=== PATIENT | female | born 1945 | race Caucasian/White ===

== ENCOUNTER → 2016-12-08 | Outpatient (CLI) | payer MEDICARE ==
[2016-12-08 16:00] LABS: Basophils # (A) 0.1 k/uL (0-0.2); Basophils % (A) 1 %; CH 27.8; CHCM 32.4; Eosinophils # (A) 0.2 k/uL (0-0.7); Eosinophils % (A) 2 %; HCT 46.5 % (34.0-46.0); HDW 3.08; HGB 14.4 gm/dL (11.4-16.0); Luc # (Auto) 0.07; Luc % (Auto) 1; Lymphocytes # (A) 1.4 k/uL (1.0-4.8); Lymphocytes % (A) 15 %; MCH 26.7 pg (25.0-35.0); MCHC 31.1 g/dL (31.0-37.0); MCV 85.9 fL (80.0-100.0); Mean Platelet Volume 7.6; Monocytes # (A) 0.4 k/uL (0-1.0); Monocytes % (A) 4 %; Neutrophils # (A) 7.1 k/uL (1.3-7.7); Neutrophils % (A) 77 %; RBC 5.41 m/uL (3.80-5.40); RDW 14.9 % (11.5-15.5); WBC 9.1 k/uL (3.8-10.6); WBC (Perox) 9.29
[2016-12-08 16:10] LABS: Anion Gap 12 mmol/L; Blood Urea Nitrogen 16 mg/dL (7-17); Calcium 9.6 mg/dL (8.4-10.2); Carbon Dioxide 32 mmol/L (22-30); Chloride 100 mmol/L (98-107); Glucose 102 mg/dL (74-99); Iron 61 ug/dL (37-170); Magnesium 1.5 mg/dL (1.6-2.3); Non-African American GFR(MDRD) 55 (>60 ml/min/1.73 sqM); Phosphorous 3.8 mg/dL (2.5-4.5); Potassium 4.6 mmol/L (3.5-5.1); Sodium 144 mmol/L (137-145); Uric Acid 8.3 mg/dL (3.7-7.4)
[2016-12-08 16:13] LABS: Appearance,Urine Clear (Clear); Bilirubin,Urine Negative (Negative); Glucose,Urine (UA) Negative (Negative); Ketones,Urine Negative (Negative); Leukocyte Esterase,Urine Negative (Negative); Nitrite,Urine Negative (Negative); PH, Urine 6.5 (5.0-8.0); Protein,Urine Negative (Negative); Specific Gravity,Urine 1.008 (1.001-1.035); UA Billing (MACRO vs. MICRO) CHEM; Urobilinogen,Urine <2.0 mg/dL (<2.0)
[2016-12-08 16:18] LABS: % Iron Saturation 18.8 % (20-50); Total Iron Binding Capacity 324 ug/dL (265-497)
== END | disposition home or self-care (01) ==
LOC: LABWHC1 15:37
PROVIDERS: ATTEND Nurse Practitioner Family
DX: N18.3 Chronic kidney disease, stage 3 (moderate) (principal); N25.81 Secondary hyperparathyroidism of renal origin; E79.0 Hyperuricemia without signs of inflammatory arthritis and tophaceous disease
CPT/HCPCS: 36415; 80048; 81003; 82306; 82728; 83540; 83550; 83735; 83970; 84100; 84550; 85025

== ENCOUNTER → 2017-06-05 | Outpatient (CLI) | payer MEDICARE ==
[2017-06-05 11:25] LABS: Basophils # (A) 0.1 k/uL (0-0.2); Basophils % (A) 1 %; CH 28.3; Eosinophils # (A) 0.2 k/uL (0-0.7); Eosinophils % (A) 2 %; HCT 44.7 % (34.0-46.0); HDW 3.09; HGB 14.8 gm/dL (11.4-16.0); Luc # (Auto) 0.11; Luc % (Auto) 1; Lymphocytes # (A) 1.1 k/uL (1.0-4.8); Lymphocytes % (A) 11 %; MCH 28.5 pg (25.0-35.0); MCHC 33.1 g/dL (31.0-37.0); Mean Platelet Volume 7.2; Monocytes # (A) 0.5 k/uL (0-1.0); Monocytes % (A) 5 %; Neutrophils # (A) 8.2 k/uL (1.3-7.7); Neutrophils % (A) 81 %; RDW 15.1 % (11.5-15.5); WBC 10.1 k/uL (3.8-10.6); WBC (Perox) 9.46
[2017-06-05 11:41] LABS: Appearance,Urine Turbid (Clear); Bacteria,Urine Many /hpf; Bilirubin,Urine Negative (Negative); Calcium 9.6 mg/dL (8.4-10.2); Glucose,Urine (UA) Negative (Negative); Ketones,Urine Negative (Negative); Leukocyte Esterase,Urine Large (Negative); Magnesium 1.6 mg/dL (1.6-2.3); Mucus,Urine Occasional /hpf; Nitrite,Urine Positive (Negative); Particle Count 10281; Phosphorous 3.5 mg/dL (2.5-4.5); Potassium 4.3 mmol/L (3.5-5.1); Protein,Urine 1+ (Negative); RBC,Urine 14 /hpf (0-5); Specific Gravity,Urine 1.013 (1.001-1.035); Squamous Epithelial Cell,Urine 7 /hpf (0-4); UA Billing (MACRO vs. MICRO) MICRO; WBC,Urine >182 /hpf (0-5)
[2017-06-05 19:44] LABS: Alternaria alternata IgE <0.10 kU/L; Aspergillus fumagatus IgE <0.10 kU/L; Cat Epith & Dander IgE <0.10 kU/L; Cladosporian herbarum IgE <0.10 kU/L; Dermato. farinae IgE <0.10 kU/L; Maple (Box Elder) IgE <0.10 kU/L; Orchard Grs(Cocksfoot) IgE <0.10 kU/L; Ragweed,Common IgE <0.10 kU/L
[2017-06-05 19:45] LABS: Clam IgE <0.10 kU/L; Egg White IgE <0.10 kU/L; Peanut IgE <0.10 kU/L; Scallop IgE <0.10 kU/L; Soybean IgE <0.10 kU/L
== END | disposition home or self-care (01) ==
LOC: LABWHC1 10:43
PROVIDERS: ATTEND Nurse Practitioner Family
DX: N18.3 Chronic kidney disease, stage 3 (moderate) (principal); N39.0 Urinary tract infection, site not specified; E55.9 Vitamin D deficiency, unspecified; M10.9 Gout, unspecified; J45.909 Unspecified asthma, uncomplicated; N25.81 Secondary hyperparathyroidism of renal origin
CPT/HCPCS: 36415; 80048; 81001; 82306; 82728; 82785; 83540; 83550; 83735; 83970; 84100; 84550; 85025; 86003

== ENCOUNTER → 2017-06-25 | Outpatient (CLI) | payer MEDICARE | LOC: LABWHC1 17:20 | PROVIDERS: ATTEND Internal Medicine Nephrology | DX: N18.3 Chronic kidney disease, stage 3 (moderate) (principal) | CPT/HCPCS: 36415; 82306; 83970 ==

== ENCOUNTER → 2017-09-08 | Outpatient (CLI) | payer MEDICARE ==
--- NOTE | 2017-09-08 14:15 | XR ---
Abdomen HISTORY: Cyst on kidney, chronic kidney disease, blood in urine Frontal view of the abdomen is present at 2 images and correlated prior exam 05/09/2015, CT abdomen pe lvis 11/12/2015, ultrasound kidneys 09/23/2016 The double-J ureteral stent has been removed. There are phleboliths present within the pelvis. Scolio sis is present centered at the upper lumbar spine. Degenerative disc changes are present within the v isualized spine. Surgical clips are present in the right upper quadrant, patient is post cholecystect bria. Questionable left paraspinal calcification present, difficult to exclude proximal ureteral calcu lindsay. Lung bases not included on the exam. IMPRESSION: Indeterminate calcification as described. Difficult to exclude nephrolithiasis.
== END | disposition home or self-care (01) ==
LOC: RADXRMAIN 13:10
PROVIDERS: ATTEND Urology
DX: N28.1 Cyst of kidney, acquired (principal)
CPT/HCPCS: 74000

== ENCOUNTER → 2017-09-08 | Outpatient (CLI) | payer MEDICARE ==
[2017-09-08 13:33] LABS: Appearance,Urine Clear (Clear); Bacteria,Urine Occasional /hpf; Bilirubin,Urine Negative (Negative); Glucose,Urine (UA) Negative (Negative); Ketones,Urine Negative (Negative); Leukocyte Esterase,Urine Large (Negative); Nitrite,Urine Negative (Negative); Particle Count 1206; Protein,Urine Negative (Negative); Specific Gravity,Urine 1.004 (1.001-1.035); UA Billing (MACRO vs. MICRO) MICRO; Urobilinogen,Urine <2.0 mg/dL (<2.0); WBC,Urine 42 /hpf (0-5)
[2017-09-08 13:33] LABS: Anion Gap 11 mmol/L; Blood Urea Nitrogen 14 mg/dL (7-17); Calcium 9.7 mg/dL (8.4-10.2); Carbon Dioxide 29 mmol/L (22-30); Chloride 98 mmol/L (98-107); Glucose 102 mg/dL (74-99); Non-African American GFR(MDRD) >60 (>60 ml/min/1.73 sqM); Potassium 4.9 mmol/L (3.5-5.1); Sodium 138 mmol/L (137-145)
== END | disposition home or self-care (01) ==
LOC: RADUSWWP 12:41
PROVIDERS: ATTEND Internal Medicine Nephrology
DX: N18.3 Chronic kidney disease, stage 3 (moderate) (principal)
CPT/HCPCS: 80048; 81001

== ENCOUNTER → 2017-12-15 | Outpatient (CLI) | payer MEDICARE ==
[2017-12-15 14:26] LABS: Basophils # (A) 0.1 k/uL (0-0.2); Basophils % (A) 1 %; Eosinophils # (A) 0.2 k/uL (0-0.7); Eosinophils % (A) 2 %; HCT 46.1 % (34.0-46.0); HGB 14.4 gm/dL (11.4-16.0); Lymphocytes # (A) 1.4 k/uL (1.0-4.8); Lymphocytes % (A) 15 %; MCH 28.2 pg (25.0-35.0); MCHC 31.2 g/dL (31.0-37.0); MCV 90.4 fL (80.0-100.0); Mean Platelet Volume 7.5; Monocytes # (A) 0.4 k/uL (0-1.0); Monocytes % (A) 5 %; Neutrophils # (A) 7.2 k/uL (1.3-7.7); Neutrophils % (A) 77 %; Platelet Count 219 k/uL (150-450); RDW 15.7 % (11.5-15.5); WBC 9.4 k/uL (3.8-10.6)
[2017-12-15 14:31] LABS: Appearance,Urine Clear (Clear); Bacteria,Urine Moderate /hpf; Bilirubin,Urine Negative (Negative); Blood,Urine Negative (Negative); Color,Urine Yellow; Glucose,Urine (UA) Negative (Negative); Ketones,Urine Negative (Negative); Leukocyte Esterase,Urine Large (Negative); Mucus,Urine Rare /hpf; Nitrite,Urine Positive (Negative); Protein,Urine Negative (Negative); Specific Gravity,Urine 1.006 (1.001-1.035); Squamous Epithelial Cell,Urine 2 /hpf (0-4); Urobilinogen,Urine <2.0 mg/dL (<2.0); WBC,Urine 55 /hpf (0-5)
[2017-12-15 14:38] LABS: Anion Gap 11 mmol/L; Blood Urea Nitrogen 14 mg/dL (7-17); Calcium 9.4 mg/dL (8.4-10.2); Carbon Dioxide 35 mmol/L (22-30); Chloride 97 mmol/L (98-107); Glucose 94 mg/dL (74-99); Magnesium 1.6 mg/dL (1.6-2.3); Phosphorus 3.6 mg/dL (2.5-4.5); Potassium 4.8 mmol/L (3.5-5.1); Sodium 143 mmol/L (137-145)
[2017-12-15 19:13] LABS: Iron Saturation 18.32 (12.00-45.00)
[2017-12-15 19:15] LABS: Parathyroid Hormone Intact 92.2 pg/mL (14.0-72.0)
[2017-12-15 19:21] LABS: Vitamin D 25 Hydroxy 48.4 ng/mL (30.0-100.0)
== END | disposition home or self-care (01) ==
LOC: LABWHC1 13:49
PROVIDERS: ATTEND Internal Medicine Nephrology
DX: E55.9 Vitamin D deficiency, unspecified (principal); D63.1 Anemia in chronic kidney disease; N18.3 Chronic kidney disease, stage 3 (moderate); N39.0 Urinary tract infection, site not specified; M10.9 Gout, unspecified; E21.3 Hyperparathyroidism, unspecified
CPT/HCPCS: 36415; 80048; 81001; 82306; 82728; 83540; 83550; 83735; 83970; 84100; 84550; 85025

== ENCOUNTER 2018-04-08 10:41 | Inpatient (IN) | payer MEDICARE ==
[2018-04-08] MEDS ORDERED: IBUPROFEN 600 MG TAB PO STA (10:51)
[2018-04-08] MEDS ORDERED: cefTRIAXone IN SWFI 1,000 MG/10 ML SYRINGE IVP STA ×2 (10:51→12:32)
[2018-04-08] MEDS ORDERED: ACETAMINOPHEN TAB 500 MG TAB PO STA (10:51)
[2018-04-08] MEDS: SODIUM CHLORIDE 0.9% 500 ML IV SCH ×4 (11:30→13:31)
[2018-04-08] MEDS: SODIUM CHLORIDE 0.9% 1,000 ML IV SCH ×2 (11:33→19:31)
[2018-04-08 11:37] LABS: Basophils % (A) 0 %; Eosinophils # (A) 0.3 k/uL (0-0.7); Eosinophils % (A) 2 %; HCT 44.3 % (34.0-46.0); Lymphocytes # (A) 0.9 k/uL (1.0-4.8); Lymphocytes % (A) 5 %; MCH 28.2 pg (25.0-35.0); MCHC 33.9 g/dL (31.0-37.0); MCV 83.3 fL (80.0-100.0); Mean Platelet Volume 7.1; Monocytes # (A) 0.7 k/uL (0-1.0); Monocytes % (A) 4 %; Neutrophils # (A) 15.2 k/uL (1.3-7.7); Neutrophils % (A) 88 %; Platelet Count 211 k/uL (150-450); RBC 5.32 m/uL (3.80-5.40); RDW 14.1 % (11.5-15.5); WBC 17.2 k/uL (3.8-10.6)
[2018-04-08 11:46] LABS: Albumin 4.3 g/dL (3.5-5.0); Appearance,Urine Cloudy (Clear); Bacteria,Urine Many /hpf; Bilirubin,Urine Negative (Negative); Blood,Urine Negative (Negative); Calcium 9.9 mg/dL (8.4-10.2); Calcium Oxalate Crystals,Urine Rare /hpf; Color,Urine Yellow; Glucose,Urine (UA) Negative (Negative); Hyaline Casts,Urine 1 /lpf (0-2); Ketones,Urine Negative (Negative); Leukocyte Esterase,Urine Large (Negative); Mucus,Urine Rare /hpf; Nitrite,Urine Negative (Negative); Potassium 4.6 mmol/L (3.5-5.1); Protein,Urine Trace (Negative); RBC,Urine 1 /hpf (0-5); Specific Gravity,Urine 1.014 (1.001-1.035); Squamous Epithelial Cell,Urine 2 /hpf (0-4); Total Bilirubin 3.3 mg/dL (0.2-1.3); Total Protein 7.2 g/dL (6.3-8.2); WBC,Urine >182 /hpf (0-5)
--- NOTE | 2018-04-08 11:50 | ED ---
Fever HPI - General Chief Complaint: Fever Stated Complaint: POSS KIDNEY STONE,INFECTION, FEVER Time Seen by Provider: 04/08/18 10:51 Source: patient, RN notes reviewed, old records reviewed Mode of arrival: wheelchair Limitations: physical limitation - History of Present Illness Initial Comments: 73-year-old female presents wrist final fever and dysuria for 2 days. She states that she's had a history of kidney stones. Complains of some back pain. She states it was initially on the left side but now on the right. Patient denies any recent fever, chills, shortness of breath, chest pain, nausea vomiting, numbness or tingling, dysuria or hematuria, constipation or diarrhea, headaches or visual changes, or any other current symptoms. She has history of A. fib on Coumadin. Last level was 2.4. - Related Data Home Medications Medication Instructions Recorded Confirmed Labetalol [Trandate] 100 mg PO BID-W/MEALS 04/09/15 04/08/18 Thyroid,Pork [Sylva Thyroid] 30 mg PO DAILY 04/09/15 04/08/18 Iodine Supplement 1 tab PO DAILY 11/12/15 04/08/18 Ascorbic Acid [Vitamin C] 500 mg PO DAILY 04/08/18 04/08/18 Cholecalciferol [Vitamin D3] 5,000 unit PO HS 04/08/18 04/08/18 Grape Seed Oil 1 cap PO BID 04/08/18 04/08/18 Magnessium 666mg 666 mg PO DAILY 04/08/18 04/08/18 Turmeric Root Extract [Turmeric] 500 mg PO HS 04/08/18 04/08/18 Ubiquinol 100 mg PO DAILY 04/08/18 04/08/18 Warfarin Sodium 10 mg PO HS 04/08/18 04/08/18 Warfarin [Coumadin] 2.5 mg PO TUTHSA 04/08/18 04/08/18 Allergies Allergy/AdvReac Type Severity Reaction Status Date / Time lisinopril Allergy Severe Abdominal Verified 04/08/18 11:52 Pain promethazine Allergy Severe Anaphylaxis Verified 04/08/18 11:52 Sulfa (Sulfonamide Allergy Severe SEVERE Verified 04/08/18 11:52 Antibiotics) ASTHMA ATTACK azithromycin Allergy Diarrhea Verified 04/08/18 11:52 levofloxacin Allergy Unknown Verified 04/08/18 11:52 amlodipine besylate AdvReac Severe Severe Verified 04/08/18 11:52 [From Norvasc] drop in blood pressure adhesive AdvReac Unknown BLISTERS Verified 04/08/18 11:52 diazepam [From Valium] AdvReac "Stabbing Verified 04/08/18 11:52 pain in brain" meperidine HCl [From Demerol] AdvReac Nausea & Verified 04/08/18 11:52 Vomiting Review of Systems ROS Statement: Those systems with pertinent positive or pertinent negative responses have been documented in the HPI. ROS Other: All systems not noted in ROS Statement are negative. Past Medical History Past Medical History: Atrial Fibrillation, Asthma, Cancer, COPD, Diabetes Mellitus, Hyperlipidemia, Hypertension, Osteoarthritis (OA), Pneumonia, Renal Disease, Thyroid Disorder Additional Past Medical History / Comment(s): 11/12/[address] [facility] ER with abdominal pain. Pt thought she had food poisoning from a hot dog she ate last nite around 8pm. She woke at 0300 with nausea/diffuse abdominal discomfort. She had a fever this AM and is slightly constiated. She is being admitted with clinical impression of sepsis, UTI, abdominal pain. 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 History of Any Multi-Drug Resistant Organisms: None Reported Past Surgical History: Breast Surgery, Section, Cholecystectomy, Hysterectomy, Tonsillectomy Additional Past Surgical History / Comment(s): L BREAST BX, URETER STENT 03/2015 , L ureteroscopy calculus extraction, colonoscopy, skin cancer removal from forehead, C/Section x 1. Past Anesthesia/Blood Transfusion Reactions: No Reported Reaction Additional Past Anesthesia/Blood Transfusion Reaction / Comment(s): WOKE UP VOMITING DURING Past Psychological History: No Psychological Hx Reported Smoking Status: Never smoker Past Alcohol Use History: None Reported Past Drug Use History: None Reported - Past Family History Father Family Medical History: Diabetes Mellitus, Deep Vein Thrombosis (DVT), Hypertension Additional Family Medical History / Comment(s): blind/neuropathy secondary to DM. Father is living and is 94 yrs old. Mother Family Medical History: Dementia Additional Family Medical History / Comment(s): Mother at age 88yrs. General Exam - General Exam Comments Initial Comments: 73-year-old female. No distress. Patient is morbidly obese. Limitations: physical limitation General appearance: alert, in no apparent distress Head exam: Present: atraumatic Eye exam: Present: normal appearance, PERRL, EOMI. Absent: scleral icterus, conjunctival injection, periorbital swelling ENT exam: Present: normal exam, mucous membranes moist Neck exam: Present: normal inspection. Absent: tenderness, meningismus, lymphadenopathy Respiratory exam: Present: normal lung sounds bilaterally. Absent: respiratory distress, wheezes, rales, rhonchi, stridor Cardiovascular Exam: Present: regular rate, normal rhythm, normal heart sounds. Absent: systolic murmur, diastolic murmur, rubs, gallop, clicks GI/Abdominal exam: Present: soft, normal bowel sounds. Absent: distended, tenderness, guarding, rebound, rigid Extremities exam: Present: normal inspection, full ROM, normal capillary refill. Absent: tenderness, pedal edema, joint swelling, calf tenderness Back exam: Present: normal inspection Neurological exam: Present: alert, oriented X3, CN II-XII intact Psychiatric exam: Present: normal affect, normal mood Course Vital Signs 04/08/18 04/08/18 10:44 13:00 Temperature 102.0 F H 98.9 F Pulse Rate 90 87 Respiratory 20 22 Rate Blood Pressure 145/82 158/96 O2 Sat by Pulse 95 95 Oximetry Medical Decision Making - Medical Decision Making 73-year-old female with dysuria for the past 2 days. Has a fever 102. Patient meets sepsis criteria with urinary tract infection over 182 white blood cells in her urine. Urine culture obtained. Blood culture obtained. Patient's lactic acid was reviewed and normal. Given [address] abdomen and pelvis without contrast completed check for stones. Started on 2 g of Rocephin. Patient does have a 0.6 cm proximal ureteral stone with air noted in the ureter. Consider possible pyelonephritis. Consult to urology. Dr. Chamberlain Discussed with Dr. Alberto. Patient will be admitted at this time. - Lab Data Result diagrams: 04/08/18 11:21 04/08/18 11:21 Lab Results 05/09/1604/08/18 04/08/18 Range/Units 11:21 11:21 11:21 WBC 17.2 H (3.8-10.6) k/uL RBC 5.32 (3.80-5.40) m/uL Hgb 15.0 (11.4-16.0) gm/dL Hct 44.3 (34.0-46.0) % MCV 83.3 (80.0-100.0) fL MCH 28.2 (25.0-35.0) pg MCHC 33.9 (31.0-37.0) g/dL RDW 14.1 (11.5-15.5) % Plt Count 211 (150-450) k/uL Neutrophils % 88 % Lymphocytes % 5 % Monocytes % 4 % Eosinophils % 2 % Basophils % 0 % Neutrophils # 15.2 H (1.3-7.7) k/uL Lymphocytes # 0.9 L (1.0-4.8) k/uL Monocytes # 0.7 (0-1.0) k/uL Eosinophils # 0.3 (0-0.7) k/uL Basophils # 0.0 (0-0.2) k/uL PT 19.7 H (9.0-12.0) sec INR 2.2 H (<1.2) APTT 31.3 H (22.0-30.0) sec Sodium 141 (137-145) mmol/L Potassium 4.6 (3.5-5.1) mmol/L Chloride 98 (98-107) mmol/L Carbon Dioxide 27 (22-30) mmol/L Anion Gap 16 mmol/L BUN 21 H (7-17) mg/dL Creatinine 1.50 H (0.52-1.04) mg/dL Est GFR (CKD-EPI)AfAm 40 (>60 ml/min/1.73 sqM) Est GFR (CKD-EPI)NonAf 35 (>60 ml/min/1.73 sqM) Glucose 122 H (74-99) mg/dL Plasma Lactic Acid Marcial (0.7-2.0) mmol/L Calcium 9.9 (8.4-10.2) mg/dL Total Bilirubin 3.3 H (0.2-1.3) mg/dL AST 27 (14-36) U/L ALT 25 (9-52) U/L Alkaline Phosphatase 87 (38-126) U/L Total Protein 7.2 (6.3-8.2) g/dL Albumin 4.3 (3.5-5.0) g/dL Urine Color Urine Appearance (Clear) Urine pH (5.0-8.0) Ur Specific Thurmond (1.001-1.035) Urine Protein (Negative) Urine Glucose (UA) (Negative) Urine Ketones (Negative) Urine Blood (Negative) Urine Nitrite (Negative) Urine Bilirubin (Negative) Urine Urobilinogen (<2.0) mg/dL Ur Leukocyte Esterase (Negative) Urine RBC (0-5) /hpf Urine WBC (0-5) /hpf Urine WBC Clumps (None) /hpf Ur Squamous Epith Cells (0-4) /hpf Calcium Oxalate Crystal (None) /hpf Urine Bacteria (None) /hpf Hyaline Casts (0-2) /lpf Urine Mucus (None) /hpf 04/08/18 04/08/18 Range/Units 11:21 11:24 WBC (3.8-10.6) k/uL RBC (3.80-5.40) m/uL Hgb (11.4-16.0) gm/dL Hct (34.0-46.0) % MCV (80.0-100.0) fL MCH (25.0-35.0) pg MCHC (31.0-37.0) g/dL RDW (11.5-15.5) % Plt Count (150-450) k/uL Neutrophils % % Lymphocytes % % Monocytes % % Eosinophils % % Basophils % % Neutrophils # (1.3-7.7) k/uL Lymphocytes # (1.0-4.8) k/uL Monocytes # (0-1.0) k/uL Eosinophils # (0-0.7) k/uL Basophils # (0-0.2) k/uL PT (9.0-12.0) sec INR (<1.2) APTT (22.0-30.0) sec Sodium (137-145) mmol/L Potassium (3.5-5.1) mmol/L Chloride (98-107) mmol/L Carbon Dioxide (22-30) mmol/L Anion Gap mmol/L BUN (7-17) mg/dL Creatinine (0.52-1.04) mg/dL Est GFR (CKD-EPI)AfAm (>60 ml/min/1.73 sqM) Est GFR (CKD-EPI)NonAf (>60 ml/min/1.73 sqM) Glucose (74-99) mg/dL Plasma Lactic Acid Marcial 1.0 (0.7-2.0) mmol/L Calcium (8.4-10.2) mg/dL Total Bilirubin (0.2-1.3) mg/dL AST (14-36) U/L ALT (9-52) U/L Alkaline Phosphatase (38-126) U/L Total Protein (6.3-8.2) g/dL Albumin (3.5-5.0) g/dL Urine Color Yellow Urine Appearance Cloudy H (Clear) Urine pH 7.0 (5.0-8.0) Ur Specific Thurmond 1.014 (1.001-1.035) Urine Protein Trace H (Negative) Urine Glucose (UA) Negative (Negative) Urine Ketones Negative (Negative) Urine Blood Negative (Negative) Urine Nitrite Negative (Negative) Urine Bilirubin Negative (Negative) Urine Urobilinogen 4.0 (<2.0) mg/dL Ur Leukocyte Esterase Large H (Negative) Urine RBC 1 (0-5) /hpf Urine WBC >182 H (0-5) /hpf Urine WBC Clumps Few H (None) /hpf Ur Squamous Epith Cells 2 (0-4) /hpf Calcium Oxalate Crystal Rare H (None) /hpf Urine Bacteria Many H (None) /hpf Hyaline Casts 1 (0-2) /lpf Urine Mucus Rare H (None) /hpf 04/08/18 12:38 EKG performed at 1205 shows A. fib with rate and axis. Patient has history of atrial fibrillation. Ventricular rate 91 bpm. QRS duration 90. QT QTc is 360/ 442. - Radiology Data Radiology results: report reviewed CT shows a 0.6 obstructing proximal right ureteral stone with mild hydronephrosis. Noticed small amount of air within the ureter. Pyelonephritis cannot be excluded. Disposition Clinical Impression: Pyelonephritis, Sepsis, Calculus of proximal right ureter Disposition: ADMITTED IP TO THIS HOSP Condition: Stable Is patient prescribed a controlled substance at d/c from ED?: No If prescribed controlled substance>3 days was MAPS reviewed?: No When asked, does pt state using other controlled substances?: No Referrals: Too Espinosa DO [Primary Care Provider] - 1-2 days Time of Disposition: 12:33
[2018-04-08 11:57] LABS: INR 2.2 (<1.2); Partial Thromboplastin Time 31.3 sec (22.0-30.0); Prothrombin Time 19.7 sec (9.0-12.0)
[2018-04-08] MEDS ORDERED: ONDANSETRON 4 MG/2 ML VIAL IVP PRN (12:35)
[2018-04-08] MEDS ORDERED: NALOXONE 0.4 MG/ML 1 ML VIAL IV PRN (12:35)
[2018-04-08] MEDS ORDERED: ACETAMINOPHEN TAB 325 MG TAB PO PRN (12:35)
[2018-04-08] MEDS ORDERED: KETOROLAC 30 MG/ML 1 ML VIAL IVP PRN (12:35)
[2018-04-08] MEDS ORDERED: IBUPROFEN 400 MG TAB PO PRN (12:35)
--- NOTE | 2018-04-08 13:08 | CT ---
EXAMINATION TYPE: CT abdomen pelvis wo con DATE OF EXAM: 04/08/2018 COMPARISON: NONE INDICATION: Rt flank pain, UTI DLP: 2639.9 mGycm, Automated exposure control for dose reduction was used. CONTRAST: None Study performed without Oral Contrast TECHNIQUE: Axial images were obtained from above the diaphragm to the pubic rami in the axial plane a t 5 mm thick sections. Reconstructed images are reviewed on the computer in the coronal plane. FINDINGS: Limited CT sections are obtained the lung bases. The lung bases are clear. Coronary artery calcific ation is present. CT ABDOMEN: Liver: Normal Spleen: Normal Pancreas: Normal Adrenal glands: The adrenal glands are normal. Gallbladder: Surgically absent Kidneys: No masses are evident. No hydronephrosis is present. No cysts are present. There is a non obstructing 1.0 cm left renal pelvis stone. There is malrotation of the right kidney. Punctate nonobs tructing 0.4 cm stone is at the superior pole. There is an obstructing proximal right ureteral stone measuring 0.6 cm causing mild hydronephrosis. There may be some gravel or milk of calcium within the dependent portion of the renal pelvis on the right. Aorta: Vascular calcification is within the aorta. Inferior vena cava: Normal. CT PELVIS: Periumbilical fat-containing hernia is present. Loops of bowel within the abdomen and pelvis are normal. There are loops of bowel which are incom pletely distended or lack oral contrast limiting their evaluation. Diverticulosis of the sigmoid colo n without acute diverticulitis is present. Appendix: Not identified Urinary bladder: Normal. Genitourinary structures: Uterus and ovaries are not identified. Osseous structures: No suspicious lytic or sclerotic lesions. IMPRESSIONS: 1. 0.6 cm obstructing proximal right ureteral stone with mild right hydronephrosis. Note is made of small amount of air within the ureter. Pyelonephritis should be considered. 2. Nonobstructing bilateral renal stones.
--- NOTE | 2018-04-08 15:52 | P.HPIM ---
History of Present Illness H&P Date: 04/08/18 Chief Complaint: Flank pain and fever Is a pleasant 73-year-old lady patient of Dr. Jesús Castro, Dr Chi. She has underlying history of COPD chronic hypoxemia on O2 nasal cannula 22/06 , lymphedema atrial fibrillation diabetes mellitus type 2, hypertension impaired balance on a walker scooter for Commit ambulation admitted to emergency room secondary to fever abdominal pain and flank pain. Patient has been ill for approximately one week, this has started when the patient started using supplement for weight loss over the counter and thereafter started having abdominal pain and flank pain. Patient had nausea no vomiting no fever no melena and , flank pain that started in the after first for about a week and 1 day prior to admission he had flank pain on the right leg patient denies any hematuria no recent medication changes from recent doctors. Patient was calm when seen, denies any nausea no vomiting, abdominal pain and flank pain is improved. 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 Patient was admitted with IV antibiotics for pyelonephritis, consult with Dr. Chi urology secondary to obstructing right ureteral stone with mild hydronephrosis Review of Systems Constitutional: Reports as per HPI, Reports chills, Reports fever, Denies anorexia, Denies chronic headaches, Denies chronic pain, Denies daytime sleepiness, Denies fatigue, Denies lethargy, Denies malaise, Denies night sweats , Denies poor appetite, Denies sweats, Denies weakness, Denies weight gain, Denies weight loss Ears, nose, mouth and throat: Reports as per HPI, Denies ant. neck pain, Denies bleeding gums, Denies dental pain, Denies dysphagia, Denies epistaxis, Denies headache, Denies hoarseness, Denies mouth pain, Denies nasal congestion, Denies nasal discharge, Denies neck fullness/pressure, Denies neck lump, Denies nose pain, Denies odynophagia, Denies post-nasal drip, Denies sinus pain, Denies sinus pressure, Denies swelling in mouth, Denies swelling in throat, Denies sore throat, Denies vertigo, Denies voice changes Cardiovascular: Reports as per HPI, Reports dyspnea on exertion, Reports edema, Denies chest pain, Denies claudication, Denies decreased exercise tolerance, Denies high blood pressure, Denies irregular heart beat, Denies leg edema, Denies lightheadedness, Denies orthopnea, Denies palpitations, Denies paroxysmal nocturnal dyspnea, Denies phlebitis, Denies rapid heart beat, Denies shortness of breath, Denies syncope Respiratory: Reports as per HPI, Reports dyspnea, Reports home oxygen, Denies congestion, Denies cough, Denies cough with sputum, Denies excessive sputum, Denies hemoptysis, Denies pain, Denies pain on inspiration, Denies pleurisy, Denies respiratory infections, Denies sleep apnea, Denies snoring, Denies wheezing Gastrointestinal: Reports as per HPI, Reports nausea, Denies abdominal pain, Denies belching, Denies bloating, Denies BRBPR, Denies change in bowel habits, Denies coffee ground emesis, Denies constipation, Denies diarrhea, Denies dyspepsia, Denies early satiety, Denies excessive gas, Denies heartburn, Denies hematemesis, Denies hematochezia, Denies indigestion, Denies jaundice, Denies lactose intolerance, Denies loss of appetite, Denies melena, Denies vomiting Genitourinary: Reports as per HPI, Denies abnormal vaginal bleeding, Denies decreased libido, Denies difficulty conceiving, Denies difficulty voiding, Denies dysmenorrhea, Denies dyspareunia, Denies dysuria, Denies flank pain, Denies genital sores, Denies hematuria, Denies hot flashes, Denies incomplete emptying, Denies kidney stones, Denies menorrhagia, Denies mixed incontinence, Denies nocturia, Denies pelvic pain, Denies post void dribbling, Denies , Denies prolapse symptoms, Denies stress incontinence, Denies urge incontinence , Denies urgency, Denies urinary frequency, Denies vaginal discharge, Denies vaginal dryness, Denies vaginal itching, Denies vaginal odor Menstruation: Reports as per HPI, Reports postmenopausal Musculoskeletal: Reports as per HPI, Denies arm numbness/tingling, Denies atrophy, Denies fractures, Denies frequent falls, Denies gait dysfunction, Denies hot joints, Denies leg numbness/tingling, Denies limitation of motion, Denies loss of height, Denies low back pain, Denies morning stiffness, Denies muscle cramps, Denies muscle weakness, Denies myalgias, Denies neck pain, Denies neck stiffness, Denies prior amputations, Denies redness of joints, Denies shooting arm pain, Denies shooting leg pain Integumentary: Reports as per HPI, Denies acne, Denies boils, Denies brittle nails, Denies change in hair/nails, Denies color changes, Denies darkening of skin, Denies depigmentation, Denies dryness, Denies foot/leg ulcers, Denies growths, Denies hirsutism, Denies lesions, Denies onychomycosis, Denies pruritus , Denies rash, Denies sores, Denies striae, Denies unusual bruising, Denies wounds Neurological: Reports as per HPI, Denies aphasia, Denies ataxia, Denies balance difficulties, Denies burning pain, Denies change in mentation, Denies change in smell/taste, Denies change in speech, Denies confusion, Denies convulsions, Denies double vision, Denies gait dysfunction, Denies head injury, Denies headaches, Denies hearing difficulties, Denies lack of coordination, Denies loss of vision, Denies memory loss, Denies migraines, Denies motor disturbance, Denies numbness, Denies paralysis, Denies paresthesias, Denies seizures, Denies sensory deficit, Denies spasticity, Denies syncope, Denies tic, Denies tingling , Denies transient paralysis, Denies tremors, Denies vertigo, Denies weakness, Denies visual changes Psychiatric: Reports as per HPI, Denies anhedonia, Denies anxiety, Denies anxiety attacks, Denies change in appetite, Denies change in libido, Denies change in sleep habits, Denies confusion, Denies depression, Denies difficulty concentrating, Denies disorientation, Denies hallucinations, Denies hopelessness , Denies hypersomnia, Denies insomnia, Denies irritability, Denies memory loss, Denies mood swings, Denies paranoia, Denies sadness/tearfulness, Denies sleep disturbances, Denies suicidal ideation Endocrine: Reports as per HPI, Denies cold intolerance, Denies deepening of the voice, Denies excessive sweating, Denies excessive thirst, Denies fatigue, Denies flushing, Denies heat intolerance, Denies high blood sugars, Denies increase in ring/shoe/hat size, Denies low blood sugars, Denies nocturia, Denies palpitations, Denies polydipsia, Denies polyphagia, Denies polyuria, Denies proptosis, Denies recent glucocorticoid use, Denies thyroid mass, Denies weight change Hematologic/Lymphatic: Reports as per HPI Allergic/Immunologic: Reports as per HPI, Denies allergic rhinitis, Denies anaphylaxis, Denies angioedema, Denies gluten intolerance, Denies persistent infections, Denies seasonal allergies, Denies urticaria, Denies wheezing Past Medical History Past Medical History: Atrial Fibrillation, Asthma, Cancer, COPD, Diabetes Mellitus, Hyperlipidemia, Hypertension, Osteoarthritis (OA), Pneumonia, Renal Disease, Thyroid Disorder Additional Past Medical History / Comment(s): Other HX: LYMPHEDEMA IN LEGS, VARICOSE VEINS, BRONCHITIS, WEARS O2 AT 2 L AT HS., ALTERNATING CONSTIPATION & DIARRHEA, KIDNEY STONES, L renal cyst, L pyelonephritis, acute renal failure, sepsis, USES "SCOOTER"-CAN ONLY WALK SHORT DISTANCES, STATES "BORDERLINE DIABETES", hx of R foot fx, skin cancer removal. History of Any Multi-Drug Resistant Organisms: None Reported Past Surgical History: Breast Surgery, Section, Cholecystectomy, Hysterectomy, Tonsillectomy Additional Past Surgical History / Comment(s): L BREAST BX, URETER STENT 03/2015 , L ureteroscopy calculus extraction, colonoscopy, skin cancer removal from forehead, C/Section x 1. Past Anesthesia/Blood Transfusion Reactions: No Reported Reaction Additional Past Anesthesia/Blood Transfusion Reaction / Comment(s): WOKE UP VOMITING DURING Past Psychological History: No Psychological Hx Reported Smoking Status: Never smoker Past Alcohol Use History: None Reported Past Drug Use History: None Reported - Past Family History Father Family Medical History: Diabetes Mellitus, Deep Vein Thrombosis (DVT), Hypertension Additional Family Medical History / Comment(s): blind/neuropathy secondary to DM. Father is living and is 94 yrs old. Mother Family Medical History: Dementia Additional Family Medical History / Comment(s): Mother at age 88yrs. Brother(s) Family Medical History: AFIB, Neurologic Disorder (Parkinson's) Additional Family Medical History / Comment(s): No sisters one son healthy no daughters Medications and Allergies Home Medications Medication Instructions Recorded Confirmed Type Labetalol [Trandate] 100 mg PO BID-W/MEALS 04/09/15 04/08/18 History Thyroid,Pork [[place] Thyroid] 30 mg PO DAILY 04/09/15 04/08/18 History Iodine Supplement 1 tab PO DAILY 11/12/15 04/08/18 History Ascorbic Acid [Vitamin C] 500 mg PO DAILY 04/08/18 04/08/18 History Cholecalciferol [Vitamin D3] 5,000 unit PO HS 04/08/18 04/08/18 History Grape Seed Oil 1 cap PO BID 04/08/18 04/08/18 History Magnessium 666mg 666 mg PO DAILY 04/08/18 04/08/18 History Turmeric Root Extract [Turmeric] 500 mg PO HS 04/08/18 04/08/18 History Ubiquinol 100 mg PO DAILY 04/08/18 04/08/18 History Warfarin Sodium 10 mg PO HS 04/08/18 04/08/18 History Warfarin [Coumadin] 2.5 mg PO TUTHSA 04/08/18 04/08/18 History Allergies Allergy/AdvReac Type Severity Reaction Status Date / Time lisinopril Allergy Severe Abdominal Verified 04/08/18 11:52 Pain promethazine Allergy Severe Anaphylaxis Verified 04/08/18 11:52 Sulfa (Sulfonamide Allergy Severe SEVERE Verified 04/08/18 11:52 Antibiotics) ASTHMA ATTACK azithromycin Allergy Diarrhea Verified 04/08/18 11:52 levofloxacin Allergy Unknown Verified 04/08/18 11:52 amlodipine besylate AdvReac Severe Severe Verified 04/08/18 11:52 [From Norvasc] drop in blood pressure adhesive AdvReac Unknown BLISTERS Verified 04/08/18 11:52 diazepam [From Valium] AdvReac "Stabbing Verified 04/08/18 11:52 pain in brain" meperidine HCl [From Demerol] AdvReac Nausea & Verified 04/08/18 11:52 Vomiting Physical Exam Vitals: Vital Signs Temp Pulse Resp BP Pulse Ox 05/10/18 14:30 82 20 146/71 96 04/08/18 13:45 81 20 150/79 96 04/08/18 13:00 98.9 F 87 22 158/96 95 04/08/18 10:44 102.0 F H 90 20 145/82 95 Intake and Output 04/08/18 04/08/18 04/08/18 06:59 14:59 22:59 Other: Weight 175.994 kg - Constitutional General appearance: cooperative, morbidly obese, no acute distress - EENT Eyes: anicteric sclerae, EOMI, PERRLA, dentition normal ENT: no hard of hearing, no hearing grossly normal, NA/AT, normal oropharynx, no other, no pharyngeal erythema, no thrush, no tonsillar exudates, no tonsillar swelling - Neck Neck: no lymphadenopathy, normal ROM, no other, no rigidity, no stridor, no thyromegaly - Respiratory Respiratory: bilateral: CTA, diminished, negative: rales, wheezing, prolonged expiration, prolonged inspiration - Cardiovascular Rhythm: regular Heart sounds: normal: S1, S2 Abnormal Heart Sounds: no systolic murmur, no diastolic murmur, no rub, no S3 Gallop, no S4 Gallop, no click, no other - Gastrointestinal General gastrointestinal: no absent bowel sounds, no decreased bowel sounds, no distended, no hepatomegaly, no hyperactive bowel sounds, normal bowel sounds, no organomegaly, no rigid, no scaphoid, soft, no splenomegaly, no tenderness, no umbilical hernia, no ventral hernia - Integumentary Integumentary: normal, normal turgor - Neurologic Neurologic: CNII-XII intact - Musculoskeletal Musculoskeletal: strength equal bilaterally - Psychiatric Psychiatric: A&O x's 3, appropriate affect, intact judgment & insight Results CBC & Chem 7: 04/08/18 11:21 04/08/18 11:21 Labs: Abnormal Lab Results - Last 24 Hours (Table) 04/08/18 04/08/18 04/08/18 Range/Units 11:21 11:21 11:21 WBC 17.2 H (3.8-10.6) k/uL Neutrophils # 15.2 H (1.3-7.7) k/uL Lymphocytes # 0.9 L (1.0-4.8) k/uL PT 19.7 H (9.0-12.0) sec INR 2.2 H (<1.2) APTT 31.3 H (22.0-30.0) sec BUN 21 H (7-17) mg/dL Creatinine 1.50 H (0.52-1.04) mg/dL Glucose 122 H (74-99) mg/dL Total Bilirubin 3.3 H (0.2-1.3) mg/dL Urine Appearance (Clear) Urine Protein (Negative) Ur Leukocyte Esterase (Negative) Urine WBC (0-5) /hpf Urine WBC Clumps (None) /hpf Calcium Oxalate Crystal (None) /hpf Urine Bacteria (None) /hpf Urine Mucus (None) /hpf 04/08/18 Range/Units 11:21 WBC (3.8-10.6) k/uL Neutrophils # (1.3-7.7) k/uL Lymphocytes # (1.0-4.8) k/uL PT (9.0-12.0) sec INR (<1.2) APTT (22.0-30.0) sec BUN (7-17) mg/dL Creatinine (0.52-1.04) mg/dL Glucose (74-99) mg/dL Total Bilirubin (0.2-1.3) mg/dL Urine Appearance Cloudy H (Clear) Urine Protein Trace H (Negative) Ur Leukocyte Esterase Large H (Negative) Urine WBC >182 H (0-5) /hpf Urine WBC Clumps Few H (None) /hpf Calcium Oxalate Crystal Rare H (None) /hpf Urine Bacteria Many H (None) /hpf Urine Mucus Rare H (None) /hpf Laboratory Results WBC 17.2 k/uL (3.8-10.6) H 04/08/18 11:21 RBC 5.32 m/uL (3.80-5.40) 04/08/18 11:21 Hgb 15.0 gm/dL (11.4-16.0) 04/08/18 11:21 Hct 44.3 % (34.0-46.0) 04/08/18 11:21 MCV 83.3 fL (80.0-100.0) 04/08/18 11:21 MCH 28.2 pg (25.0-35.0) 04/08/18 11:21 MCHC 33.9 g/dL (31.0-37.0) 04/08/18 11:21 RDW 14.1 % (11.5-15.5) 04/08/18 11:21 Plt Count 211 k/uL (150-450) 04/08/18 11:21 Neutrophils % 88 % 04/08/18 11:21 Lymphocytes % 5 % 04/08/18 11:21 Monocytes % 4 % 04/08/18 11:21 Eosinophils % 2 % 04/08/18 11:21 Basophils % 0 % 04/08/18 11:21 Neutrophils # 15.2 k/uL (1.3-7.7) H 04/08/18 11:21 Lymphocytes # 0.9 k/uL (1.0-4.8) L 04/08/18 11:21 Monocytes # 0.7 k/uL (0-1.0) 04/08/18 11:21 Eosinophils # 0.3 k/uL (0-0.7) 04/08/18 11:21 Basophils # 0.0 k/uL (0-0.2) 04/08/18 11:21 PT 19.7 sec (9.0-12.0) H 04/08/18 11:21 INR 2.2 (<1.2) H 04/08/18 11:21 APTT 31.3 sec (22.0-30.0) H 04/08/18 11:21 Sodium 141 mmol/L (137-145) 04/08/18 11:21 Potassium 4.6 mmol/L (3.5-5.1) 04/08/18 11:21 Chloride 98 mmol/L (98-107) 04/08/18 11:21 Carbon Dioxide 27 mmol/L (22-30) 04/08/18 11:21 Anion Gap 16 mmol/L 04/08/18 11:21 BUN 21 mg/dL (7-17) H 04/08/18 11:21 Creatinine 1.50 mg/dL (0.52-1.04) H 04/08/18 11:21 Est GFR (CKD-EPI)AfAm 40 (>60 ml/min/1.73 sqM) 04/08/18 11:21 Est GFR (CKD-EPI)NonAf 35 (>60 ml/min/1.73 sqM) 04/08/18 11:21 Glucose 122 mg/dL (74-99) H 04/08/18 11:21 Plasma Lactic Acid Marcial 1.0 mmol/L (0.7-2.0) 04/08/18 11:24 Calcium 9.9 mg/dL (8.4-10.2) 04/08/18 11:21 Total Bilirubin 3.3 mg/dL (0.2-1.3) H 04/08/18 11:21 AST 27 U/L (14-36) 04/08/18 11:21 ALT 25 U/L (9-52) 04/08/18 11:21 Alkaline Phosphatase 87 U/L (38-126) 04/08/18 11:21 Total Protein 7.2 g/dL (6.3-8.2) 04/08/18 11:21 Albumin 4.3 g/dL (3.5-5.0) 04/08/18 11:21 Urine Color Yellow 04/08/18 11:21 Urine Appearance Cloudy (Clear) H 04/08/18 11:21 Urine pH 7.0 (5.0-8.0) 04/08/18 11:21 Ur Specific [place] 1.014 (1.001-1.035) 04/08/18 11:21 Urine Protein Trace (Negative) H 04/08/18 11:21 Urine Glucose (UA) Negative (Negative) 04/08/18 11:21 Urine Ketones Negative (Negative) 04/08/18 11:21 Urine Blood Negative (Negative) 04/08/18 11:21 Urine Nitrite Negative (Negative) 04/08/18 11:21 Urine Bilirubin Negative (Negative) 04/08/18 11:21 Urine Urobilinogen 4.0 mg/dL (<2.0) 04/08/18 11:21 Ur Leukocyte Esterase Large (Negative) H 04/08/18 11:21 Urine RBC 1 /hpf (0-5) 04/08/18 11:21 Urine WBC >182 /hpf (0-5) H 04/08/18 11:21 Urine WBC Clumps Few /hpf (None) H 04/08/18 11:21 Ur Squamous Epith Cells 2 /hpf (0-4) 04/08/18 11:21 Calcium Oxalate Crystal Rare /hpf (None) H 04/08/18 11:21 Urine Bacteria Many /hpf (None) H 04/08/18 11:21 Hyaline Casts 1 /lpf (0-2) 04/08/18 11:21 Urine Mucus Rare /hpf (None) H 04/08/18 11:21 Thrombosis Risk Factor Assmnt - DVT/VTE Prophylaxis DVT/VTE Prophylaxis: Pharmacologic Prophylaxis ordered - Choose All That Apply Each Factor Represents 1 point: Minor surgery planned, Sepsis (< 1month) Each Risk Factor Represents 2 Points: Age 61-74 years Thrombosis Risk Factor Assessment Total Risk Factor Score: 4 Thrombosis Risk Factor Assessment Level: Moderate Risk Assessment and Plan Plan: 1. Acute Pyelonephritis with bilateral renal stones, obstructing left proximal ureteral stone, producing mild hydronephrosis, patient was started on IV Rocephin, urine cultures to be done, urology, on consult for the hydronephrosis and obstructing stone, monitor for renal function. Pending cultures patient might need reversal on Coumadin should urology plan on surgical intervention. As we'll going to hold off Coumadin at this time 2. COPD with chronic hypoxemic respiratory failure on maintenance O2 nasal cannula 22/06. Outpatient pulmonary physician was Dr. Castro, patient might require his services in the hospital should there be any intervention urologically for sedative procedures 3 Paroxysmal atrial fibrillation on anticoagulation, Coumadin on hold secondary to anticipated procedure for urology 4 Previous kidney stones in the past with difficulty during a stent placement, obtain phosphorus, vitamin D, PTH, And lambda chain 5 Hypothyroidism on [place] Thyroid 30 mg daily 6 diabetes mellitus type 2 not on any oral agents before meals at bedtime Accu- Cheks, hemoglobin A1c 7 CKD stage III Baseline creatinine between 1.5-2.06 avoid nephrotoxins discontinue Motrin, avoid hypotension 8 Hypertension on Trandate 100 mg twice a day 9 Chronic lymphedema, stable not on diuretics no adjustments needed at this time 10 Impaired mobility, scooter and walker on community ambulation 11Long-term anticoagulation, discontinue Coumadin and monitor for INR, anticipate urology procedure for left hydronephrosis caused by proximal ureteral stone 12Super obesity with BMI over 60
[2018-04-08] MEDS ORDERED: WARFARIN 2.5 MG TAB PO SCH (18:00)
[2018-04-08] MEDS ORDERED: WARFARIN 10 MG TAB PO SCH (18:00)
[2018-04-08] MEDS: CHOLECALCIFEROL 1,000 UNIT TAB PO SCH (19:30)
[2018-04-08] MEDS: LABETALOL 100 MG TAB PO SCH (19:30)
[2018-04-08] MEDS: HEPARIN SODIUM,PORCINE 5,000 UNIT/ML 1 ML VIAL SQ SCH (19:31)
[2018-04-08] MEDS ORDERED: GRAPE SEED OIL PO SCH (21:00)
[2018-04-08] MEDS ORDERED: NON-FORMULARY DRUG (Turmeric Root Extract [Turmeric] 500 MG) PO SCH (21:00)
[2018-04-08] MEDS: MELATONIN 3 MG TABLET PO SCH (22:32)
[2018-04-09 01:05] LABS: Parathyroid Hormone Intact 64.6 pg/mL (14.0-72.0)
[2018-04-09 03:53] LABS: Basophils % (A) 0 %; Eosinophils # (A) 0.2 k/uL (0-0.7); Eosinophils % (A) 1 %; HCT 42.2 % (34.0-46.0); HGB 13.7 gm/dL (11.4-16.0); Lymphocytes # (A) 0.4 k/uL (1.0-4.8); Lymphocytes % (A) 2 %; MCHC 32.6 g/dL (31.0-37.0); MCV 86.1 fL (80.0-100.0); Mean Platelet Volume 7.6; Monocytes # (A) 0.6 k/uL (0-1.0); Monocytes % (A) 3 %; Neutrophils # (A) 15.2 k/uL (1.3-7.7); Neutrophils % (A) 93 %; Platelet Count 172 k/uL (150-450); RDW 14.3 % (11.5-15.5); WBC 16.5 k/uL (3.8-10.6)
[2018-04-09 03:58] LABS: INR 2.3 (<1.2); Prothrombin Time 20.6 sec (9.0-12.0)
[2018-04-09 04:05] LABS: Calcium 9.1 mg/dL (8.4-10.2); Potassium 4.6 mmol/L (3.5-5.1)
[2018-04-09] MEDS ORDERED: IBUPROFEN 800 MG TAB PO STA (04:16)
[2018-04-09] MEDS ORDERED: ACETAMINOPHEN TAB 325 MG TAB PO PRN (04:21)
[2018-04-09] MEDS: ALBUTEROL NEBULIZED 2.5 MG/3 ML INHALATION PRN ×3 (04:27→20:43)
[2018-04-09] MEDS: SODIUM CHLORIDE 0.9% 1,000 ML IV SCH ×2 (04:46→09:50)
[2018-04-09] MEDS ORDERED: Pre Op ABX Message 1 EACH MISC MISCELLANE ONE (05:00)
[2018-04-09] MEDS: THYROID, PORK 30 MG TAB PO SCH (05:41)
--- NOTE | 2018-04-09 06:58 | P.GSCN ---
History of Present Illness Consult date: 04/08/18 Reason for Consult: Ureteral Calculus, UTI Requesting physician: Tracy Joseph History of present illness: The patient is a 73-year-old white female with a history of urolithiasis. She underwent placement of a left ureteral stent in March 2015 for a distal ureteral calculus/sepsis, with subsequent ureteroscopy. Later that year, she was hospitalized with fever and leukocytosis. A computed tomography scan showed evidence of right UPJ obstruction with small calculi in the region of the UPJ, and gas within the intrarenal collecting system. This resolved with antibiotics. She is now admitted with fever and right flank pain. Review of Systems - Constitutional Reports chills, Reports fever - Gastrointestinal Reports nausea, Reports vomiting - Genitourinary Genitourinary: Reports dysuria, Reports kidney stones Past Medical History Past Medical History: Atrial Fibrillation, Asthma, Cancer, COPD, Diabetes Mellitus, Hyperlipidemia, Hypertension, Osteoarthritis (OA), Pneumonia, Renal Disease, Thyroid Disorder Additional Past Medical History / Comment(s): Other HX: LYMPHEDEMA IN LEGS, VARICOSE VEINS, BRONCHITIS, WEARS O2 AT 2 L AT HS., ALTERNATING CONSTIPATION & DIARRHEA, KIDNEY STONES, L renal cyst, L pyelonephritis, acute renal failure, sepsis, USES "SCOOTER"-CAN ONLY WALK SHORT DISTANCES, STATES "BORDERLINE DIABETES", hx of R foot fx, skin cancer removal. History of Any Multi-Drug Resistant Organisms: None Reported Past Surgical History: Breast Surgery, Section, Cholecystectomy, Hysterectomy, Tonsillectomy Additional Past Surgical History / Comment(s): L BREAST BX, URETER STENT 03/2015 , L ureteroscopy calculus extraction, colonoscopy, skin cancer removal from forehead, C/Section x 1. Past Anesthesia/Blood Transfusion Reactions: No Reported Reaction Additional Past Anesthesia/Blood Transfusion Reaction / Comm: WOKE UP VOMITING DURING Past Psychological History: No Psychological Hx Reported Smoking Status: Never smoker Past Alcohol Use History: None Reported Past Drug Use History: None Reported - Past Family History Brother(s) Family Medical History: AFIB, Neurologic Disorder (Parkinson's) Additional Family Medical History / Comment(s): No sisters one son healthy no daughters Father Family Medical History: Diabetes Mellitus, Deep Vein Thrombosis (DVT), Hypertension Additional Family Medical History / Comment(s): blind/neuropathy secondary to DM. Father is living and is 94 yrs old. Mother Family Medical History: Dementia Additional Family Medical History / Comment(s): Mother at age 88yrs. Medications and Allergies Home Medications Medication Instructions Recorded Confirmed Type Labetalol [Trandate] 100 mg PO BID-W/MEALS 04/09/15 04/08/18 History Thyroid,Pork [[place] Thyroid] 30 mg PO DAILY 04/09/15 04/08/18 History Iodine Supplement 1 tab PO DAILY 11/12/15 04/08/18 History Ascorbic Acid [Vitamin C] 500 mg PO DAILY 04/08/18 04/08/18 History Cholecalciferol [Vitamin D3] 5,000 unit PO HS 04/08/18 04/08/18 History Grape Seed Oil 1 cap PO BID 04/08/18 04/08/18 History Magnessium 666mg 666 mg PO DAILY 04/08/18 04/08/18 History Turmeric Root Extract [Turmeric] 500 mg PO HS 04/08/18 04/08/18 History Ubiquinol 100 mg PO DAILY 04/08/18 04/08/18 History Warfarin Sodium 10 mg PO HS 04/08/18 04/08/18 History Warfarin [Coumadin] 2.5 mg PO TUTHSA 04/08/18 04/08/18 History Allergies Allergy/AdvReac Type Severity Reaction Status Date / Time lisinopril Allergy Severe Abdominal Verified 04/08/18 11:52 Pain promethazine Allergy Severe Anaphylaxis Verified 04/08/18 11:52 Sulfa (Sulfonamide Allergy Severe SEVERE Verified 04/08/18 11:52 Antibiotics) ASTHMA ATTACK azithromycin Allergy Diarrhea Verified 04/08/18 11:52 levofloxacin Allergy Unknown Verified 04/08/18 11:52 amlodipine besylate AdvReac Severe Severe Verified 04/08/18 11:52 [From Norvasc] drop in blood pressure adhesive AdvReac Unknown BLISTERS Verified 04/08/18 11:52 diazepam [From Valium] AdvReac "Stabbing Verified 04/08/18 11:52 pain in brain" meperidine HCl [From Demerol] AdvReac Nausea & Verified 04/08/18 11:52 Vomiting Surgical - Exam Vital Signs Temp Pulse Resp BP Pulse Ox 102.0 F H 90 20 145/82 95 04/08/18 10:44 04/08/18 10:44 04/08/18 10:44 04/08/18 10:44 04/08/18 10:44 - General well developed, well nourished, no distress, obese - Respiratory normal respiratory effort - Abdomen Abdomen: soft, non tender, no masses - Psychiatric oriented to time, oriented to person, oriented to place, speech is normal, memory intact Results - Labs 04/09/18 03:36 04/09/18 03:36 Abnormal Lab Results - Last 24 Hours (Table) 04/08/18 04/08/18 04/08/18 Range/Units 11:21 11:21 11:21 WBC 17.2 H (3.8-10.6) k/uL Neutrophils # 15.2 H (1.3-7.7) k/uL Lymphocytes # 0.9 L (1.0-4.8) k/uL PT 19.7 H (9.0-12.0) sec INR 2.2 H (<1.2) APTT 31.3 H (22.0-30.0) sec BUN 21 H (7-17) mg/dL Creatinine 1.50 H (0.52-1.04) mg/dL Glucose 122 H (74-99) mg/dL Total Bilirubin 3.3 H (0.2-1.3) mg/dL Urine Appearance (Clear) Urine Protein (Negative) Ur Leukocyte Esterase (Negative) Urine WBC (0-5) /hpf Urine WBC Clumps (None) /hpf Calcium Oxalate Crystal (None) /hpf Urine Bacteria (None) /hpf Urine Mucus (None) /hpf 04/08/18 Range/Units 11:21 WBC (3.8-10.6) k/uL Neutrophils # (1.3-7.7) k/uL Lymphocytes # (1.0-4.8) k/uL PT (9.0-12.0) sec INR (<1.2) APTT (22.0-30.0) sec BUN (7-17) mg/dL Creatinine (0.52-1.04) mg/dL Glucose (74-99) mg/dL Total Bilirubin (0.2-1.3) mg/dL Urine Appearance Cloudy H (Clear) Urine Protein Trace H (Negative) Ur Leukocyte Esterase Large H (Negative) Urine WBC >182 H (0-5) /hpf Urine WBC Clumps Few H (None) /hpf Calcium Oxalate Crystal Rare H (None) /hpf Urine Bacteria Many H (None) /hpf Urine Mucus Rare H (None) /hpf Microbiology - Last 24 Hours (Table) 04/08/18 11:24 Urine Culture - Preliminary Urine,Voided Diabetes panel 04/08/18 Range/Units 11:21 Sodium 141 (137-145) mmol/L Potassium 4.6 (3.5-5.1) mmol/L Chloride 98 (98-107) mmol/L Carbon Dioxide 27 (22-30) mmol/L BUN 21 H (7-17) mg/dL Creatinine 1.50 H (0.52-1.04) mg/dL Glucose 122 H (74-99) mg/dL Calcium 9.9 (8.4-10.2) mg/dL AST 27 (14-36) U/L ALT 25 (9-52) U/L Alkaline Phosphatase 87 (38-126) U/L Total Protein 7.2 (6.3-8.2) g/dL Albumin 4.3 (3.5-5.0) g/dL Calcium panel 04/08/18 04/08/18 Range/Units 11:21 11:21 Calcium 9.9 (8.4-10.2) mg/dL Phosphorus 3.6 (2.5-4.5) mg/dL Albumin 4.3 (3.5-5.0) g/dL Pituitary panel 04/08/18 Range/Units 11:21 Sodium 141 (137-145) mmol/L Potassium 4.6 (3.5-5.1) mmol/L Chloride 98 (98-107) mmol/L Carbon Dioxide 27 (22-30) mmol/L BUN 21 H (7-17) mg/dL Creatinine 1.50 H (0.52-1.04) mg/dL Glucose 122 H (74-99) mg/dL Calcium 9.9 (8.4-10.2) mg/dL Adrenal panel 04/08/18 Range/Units 11:21 Sodium 141 (137-145) mmol/L Potassium 4.6 (3.5-5.1) mmol/L Chloride 98 (98-107) mmol/L Carbon Dioxide 27 (22-30) mmol/L BUN 21 H (7-17) mg/dL Creatinine 1.50 H (0.52-1.04) mg/dL Glucose 122 H (74-99) mg/dL Calcium 9.9 (8.4-10.2) mg/dL Total Bilirubin 3.3 H (0.2-1.3) mg/dL AST 27 (14-36) U/L ALT 25 (9-52) U/L Alkaline Phosphatase 87 (38-126) U/L Total Protein 7.2 (6.3-8.2) g/dL Albumin 4.3 (3.5-5.0) g/dL - Imaging CT scan - abdomen: report reviewed, image reviewed Assessment and Plan (1) Calculus of proximal right ureter Current Visit: Yes Status: Acute Code(s): N20.1 - CALCULUS OF URETER SNOMED Code(s): 94380570 Plan: The computed tomography scan shows moderate right hydronephrosis. There appears to be a small obstructing calculus at the right ureteropelvic junction. There is a small amount of air adjacent to this. Urinalysis is consistent with infection. A urine culture is pending. In the meantime, she is receiving Rocephin. I have suggested she undergo cystoscopy with right ureteral stent insertion. The rationale for this was reviewed, as were potential risks. These include anesthesia, inability to place the ureteral stent, and ureteral injury. I have asked that she be seen by Dr. Castro or one of his associates preoperatively, as she is well known to him. The procedure can be performed under sedation. It is anticipated that she will require right ureteroscopy after the infection has resolved. Time with Patient: Greater than 30
[2018-04-09] MEDS: BUDESONIDE 0.5 MG/2 ML NEBU INHALATION SCH ×2 (07:19→20:43)
--- NOTE | 2018-04-09 08:20 | XR ---
EXAMINATION TYPE: XR chest 2V DATE OF EXAM: 04/09/2018 COMPARISON: 11/12/2015 HISTORY: Shortness of breath TECHNIQUE: Frontal and lateral views of the chest are obtained. FINDINGS: Scattered senescent parenchymal changes noted. Hyperinflation compatible with COPD. No evidence for infiltrate. No evidence for atelectasis. Heart size is stable. Mediastinal structures are stable and grossly unremarkable. No evidence for hilar prominence. Degenerative changes dorsal spine. IMPRESSION: 1. No evidence for acute pulmonary disease.
[2018-04-09] MEDS: HEPARIN SODIUM,PORCINE 5,000 UNIT/ML 1 ML VIAL SQ SCH ×2 (08:31→20:39)
[2018-04-09] MEDS: LABETALOL 100 MG TAB PO SCH ×2 (08:40→17:19)
[2018-04-09] MEDS: PANTOPRAZOLE 40 MG/10 ML VIAL IV SCH (08:41)
[2018-04-09] MEDS: cefTRIAXone IN SWFI 1,000 MG/10 ML SYRINGE IVP SCH (08:41)
[2018-04-09] MEDS ORDERED: IODINE SUPPLEMENT PO SCH (09:00)
[2018-04-09] MEDS ORDERED: UBIQUINOL 100 MG PO SCH (09:00)
--- NOTE | 2018-04-09 10:43 | P.CNPUL ---
<Mindy Kirk M - Last Filed: 04/09/18 10:00> History of Present Illness Consult date: 04/09/18 Requesting physician: Daniel Kellogg Reason for consult: other Chief complaint: Right flank pain, obstructive urolithiasis, UTI and sepsis History of present illness: Mrs. Liu is a 73-year-old white female patient of Dr. Espinosa, who presented to the emergency department on 04/08/2018 1041 with complaints of fever, chills, dysuria, and right flank pain that started on Thursday. She has a previous history of kidney stones on the left, with previous ureteral stent placement. Other medical history includes mild intermittent asthma, and patient had her last exacerbation with bronchitis last year in May 2017, after which a significant drop in her FEV1 was noted from her baseline of 66% down to 36% of predicted. No episodes of asthma exacerbation since then requiring steroid or antibiotic treatment. Patient has DuoNeb nebulized treatments at home which she uses on an as-needed basis, and has not had to use it at all in the last several months. Has a Pro-Air inhaler which she has not used at all since her last exacerbation in 2016. Patient a home sleep study during which she was only able to sleep with 3 hours, and and she states was negative for POLA. Patient does wear 2 L of oxygen at bedtime. She does get shortness of breath with exertion at her baseline, and right now that has not changed. Other medical problems include morbid obesity, hypothyroidism, chronic atrial fibrillation on anticoagulation, hyperlipidemia, hypertension, osteoarthritis, chronic kidney disease, chronic lymphedema in her legs. On her presentation to the emergency department patient was febrile with a temp of 102 degrees Fahrenheit, she had leukocytosis, WBC was 17.2, lactic acid was within normal limits at 1.0, urinalysis showed pyuria, and bacteriuria. Blood cultures, urine cultures were sent, patient was started on empiric antibiotics in the form of Rocephin. She was given 2 L IV bolus of 0.9 normal saline. EKG showed atrial fibrillation with a ventricular rate of 91 BPM. Abdomen/pelvis CT showed a obstructive proximal right ureteral stone with mild right hydronephrosis measuring 0.6 cm, with small amount of air within the ureter. There were nonobstructing bilateral renal stones seen as well. There was diverticulosis without any evidence of diverticulitis. She was seen in consultation by Dr. Kellogg from urology and the plan is to proceed with cystoscopy with right ureteral stent insertion. Asked to see the patient for a preop clearance. Patient reports having a problem with her breathing during her previous cystoscopy and left ureteral stent placement in the past. She could not elaborate and the details, but she denies having any acute ALLERGIC reaction. Currently she is stable, her chest x-ray was reviewed, and did not show any evidence of any acute cardiopulmonary process. Patient denies any chest congestion, denies any sputum production. Her lung sounds are clear to auscultation. Review of Systems All systems: negative Constitutional: Denies chills, Denies fever Eyes: denies blurred vision, denies pain Ears, nose, mouth and throat: Denies headache, Denies sore throat Cardiovascular: Denies chest pain, Denies shortness of breath Respiratory: Reports as per HPI, Reports dyspnea, Reports home oxygen, Denies cough Gastrointestinal: Denies abdominal pain, Denies diarrhea, Denies nausea, Denies vomiting Genitourinary: Denies dysuria, Denies hematuria Musculoskeletal: Denies myalgias Integumentary: Denies pruritus, Denies rash Neurological: Denies numbness, Denies weakness Psychiatric: Denies anxiety, Denies depression Endocrine: Denies fatigue, Denies weight change Hematologic/Lymphatic: Reports lymphedema Past Medical History Past Medical History: Atrial Fibrillation, Asthma, Cancer, Diabetes Mellitus, Hyperlipidemia, Hypertension, Osteoarthritis (OA), Pneumonia, Renal Disease, Thyroid Disorder Additional Past Medical History / Comment(s): Other HX: LYMPHEDEMA IN LEGS, VARICOSE VEINS, BRONCHITIS, WEARS O2 AT 2 L AT HS., ALTERNATING CONSTIPATION & DIARRHEA, KIDNEY STONES, L renal cyst, L pyelonephritis, acute renal failure, sepsis, USES "SCOOTER"-CAN ONLY WALK SHORT DISTANCES, STATES "BORDERLINE DIABETES", hx of R foot fx, skin cancer removal. History of Any Multi-Drug Resistant Organisms: None Reported Past Surgical History: Breast Surgery, Section, Cholecystectomy, Hysterectomy, Tonsillectomy Additional Past Surgical History / Comment(s): L BREAST BX, URETER STENT 03/2015 , L ureteroscopy calculus extraction, colonoscopy, skin cancer removal from forehead, C/Section x 1. Past Anesthesia/Blood Transfusion Reactions: No Reported Reaction Additional Past Anesthesia/Blood Transfusion Reaction / Comment(s): WOKE UP VOMITING DURING Past Psychological History: No Psychological Hx Reported Smoking Status: Never smoker Past Alcohol Use History: None Reported Past Drug Use History: None Reported - Past Family History Brother(s) Family Medical History: AFIB, Neurologic Disorder (Parkinson's) Additional Family Medical History / Comment(s): No sisters one son healthy no daughters Father Family Medical History: Diabetes Mellitus, Deep Vein Thrombosis (DVT), Hypertension Additional Family Medical History / Comment(s): blind/neuropathy secondary to DM. Father is living and is 94 yrs old. Mother Family Medical History: Dementia Additional Family Medical History / Comment(s): Mother at age 88yrs. Medications and Allergies Home Medications Medication Instructions Recorded Confirmed Type Labetalol [Trandate] 100 mg PO BID-W/MEALS 04/09/15 04/08/18 History Thyroid,Pork [[place] Thyroid] 30 mg PO DAILY 04/09/15 04/08/18 History Iodine Supplement 1 tab PO DAILY 11/12/15 04/08/18 History Ascorbic Acid [Vitamin C] 500 mg PO DAILY 04/08/18 04/08/18 History Cholecalciferol [Vitamin D3] 5,000 unit PO HS 04/08/18 04/08/18 History Grape Seed Oil 1 cap PO BID 04/08/18 04/08/18 History Magnessium 666mg 666 mg PO DAILY 04/08/18 04/08/18 History Turmeric Root Extract [Turmeric] 500 mg PO HS 04/08/18 04/08/18 History Ubiquinol 100 mg PO DAILY 04/08/18 04/08/18 History Warfarin Sodium 10 mg PO HS 04/08/18 04/08/18 History Warfarin [Coumadin] 2.5 mg PO TUTHSA 04/08/18 04/08/18 History Allergies Allergy/AdvReac Type Severity Reaction Status Date / Time lisinopril Allergy Severe Abdominal Verified 04/08/18 11:52 Pain promethazine Allergy Severe Anaphylaxis Verified 04/08/18 11:52 Sulfa (Sulfonamide Allergy Severe SEVERE Verified 04/08/18 11:52 Antibiotics) ASTHMA ATTACK azithromycin Allergy Diarrhea Verified 04/08/18 11:52 levofloxacin Allergy Unknown Verified 04/08/18 11:52 amlodipine besylate AdvReac Severe Severe Verified 04/08/18 11:52 [From Norvasc] drop in blood pressure adhesive AdvReac Unknown BLISTERS Verified 04/08/18 11:52 diazepam [From Valium] AdvReac "Stabbing Verified 04/08/18 11:52 pain in brain" meperidine HCl [From Demerol] AdvReac Nausea & Verified 04/08/18 11:52 Vomiting Physical Exam Vitals: Vital Signs Temp Pulse Pulse Resp BP BP Pulse Ox 04/09/18 07:45 80 04/09/18 07:19 77 96 04/09/18 07:00 97.6 F 71 18 119/60 99 04/09/18 05:46 98.8 F 04/09/18 04:47 99.4 F 97 24 142/67 96 04/09/18 04:39 92 04/09/18 04:27 96 04/09/18 04:25 109 H 32 H 04/09/18 03:02 101.8 F H 109 H 22 156/77 96 04/09/18 02:55 102.4 F H 04/08/18 22:18 75 18 04/08/18 21:52 98.4 F 75 18 158/82 96 04/08/18 19:29 72 125/63 04/08/18 16:00 78 16 04/08/18 15:15 98.0 F 78 20 167/86 94 L 04/08/18 14:30 82 20 146/71 96 04/08/18 13:45 81 20 150/79 96 04/08/18 13:00 98.9 F 87 22 158/96 95 04/08/18 10:44 102.0 F H 90 20 145/82 95 Intake and Output 04/08/18 04/09/18 04/09/18 22:59 06:59 14:59 Other: Voiding Method Toilet Toilet Toilet # Voids 1 1 - Constitutional General appearance: morbidly obese, no acute distress - EENT Eyes: EOMI, PERRLA, normal appearance ENT: NA/AT, normal oropharynx Ears: bilateral: normal - Neck Neck: no lymphadenopathy, normal ROM Carotids: bilateral: upstroke normal Thyroid: bilateral: normal size - Respiratory Respiratory: bilateral: CTA, diminished (At the bases) - Cardiovascular Rhythm: regular Heart sounds: normal: S1, S2 ankle Peripheral Edema: bilateral: Other (Chronic lymphedema of bilateral lower extremities) dorsalis pedis Peripheral Pulses: bilateral: Normal - Gastrointestinal General gastrointestinal: no organomegaly, soft, no tenderness - Integumentary Integumentary: normal turgor - Neurologic Neurologic: CNII-XII intact - Musculoskeletal Musculoskeletal: gait normal, strength equal bilaterally - Psychiatric Psychiatric: A&O x's 3, appropriate affect, intact judgment & insight Results - Laboratory Findings CBC and BMP: 04/09/18 03:36 04/09/18 03:36 PT/INR, D-dimer PT 20.6 sec (9.0-12.0) H 04/09/18 03:36 INR 2.3 (<1.2) H 04/09/18 03:36 Abnormal lab findings: Abnormal Labs 04/08/18 04/08/18 04/08/18 11:21 11:21 11:21 WBC 17.2 H Neutrophils # 15.2 H Lymphocytes # 0.9 L PT 19.7 H INR 2.2 H APTT 31.3 H BUN 21 H Creatinine 1.50 H Glucose 122 H Total Bilirubin 3.3 H Urine Appearance Urine Protein Ur Leukocyte Esterase Urine WBC Urine WBC Clumps Calcium Oxalate Crystal Urine Bacteria Urine Mucus 04/08/18 04/09/18 04/09/18 11:21 03:36 03:36 WBC 16.5 H Neutrophils # 15.2 H Lymphocytes # 0.4 L PT 20.6 H INR 2.3 H APTT BUN Creatinine Glucose Total Bilirubin Urine Appearance Cloudy H Urine Protein Trace H Ur Leukocyte Esterase Large H Urine WBC >182 H Urine WBC Clumps Few H Calcium Oxalate Crystal Rare H Urine Bacteria Many H Urine Mucus Rare H 04/09/18 03:36 WBC Neutrophils # Lymphocytes # PT INR APTT BUN 24 H Creatinine 1.80 H Glucose 110 H Total Bilirubin Urine Appearance Urine Protein Ur Leukocyte Esterase Urine WBC Urine WBC Clumps Calcium Oxalate Crystal Urine Bacteria Urine Mucus - Diagnostic Findings Chest x-ray: report reviewed, image reviewed Additional studies: Abdomen/pelvis CT, EKG reviewed Assessment and Plan Plan: Assessment: #1. Acute obstructive right ureteral urolithiasis with moderate right hydronephrosis with acute pyelonephritis #2. Acute on chronic kidney injury secondary to the above #3. Mild intermittent asthma, currently stable #4. Hypothyroidism, on thyroid replacement #5. Chronic atrial fibrillation, currently in sinus rhythm, on chronic anticoagulation with Coumadin #6. Morbid obesity, with a BMI of 60.8 kg/m #7. Previous left urolithiasis with stent placement #8. Chronic lymphedema in bilateral lower extremities #9. Hypertension, hyperlipidemia #10. Chronic hypoxemic respiratory failure possibly related to underlying obstructive sleep apnea, patient wears oxygen at bedtime only Plan: Chest x-ray, CT abdomen and pelvis films were reviewed by Dr. Castro, no evidence of any acute pulmonary process. Patient denies any acute respiratory complaints. Vital signs are stable. Patient is cleared from pulmonary standpoint or cystoscopy and right ureteral stent placement. Patient may need placement on BiPAP post procedure, related to post procedural sedation and possibility of hypoventilation. This was discussed with Dr. Penny and the plan is to proceed with cystoscopy this morning. We will continue to follow with you I performed a history & physical examination of the patient and discussed their management with my nurse practitioner, Mindy Kirk. I reviewed the nurse practitioner's note and agree with the documented findings and plan of care. Lung sounds are clear. The findings and the impression was discussed with the patient. I attest to the documentation by the nurse practitioner. <Erika Castro - Last Filed: 04/09/18 18:32> Physical Exam Vitals: Vital Signs Temp Pulse Pulse Resp BP Pulse Ox 04/09/18 16:30 89 131/77 04/09/18 16:00 75 128/68 04/09/18 15:30 77 121/59 04/09/18 15:00 78 123/58 04/09/18 14:30 63 16 119/67 04/09/18 14:00 97.8 F 78 16 113/57 96 04/09/18 13:35 67 16 119/60 97 04/09/18 13:20 71 18 128/58 98 04/09/18 13:05 69 16 115/55 99 04/09/18 12:50 97 F L 74 12 118/58 95 04/09/18 11:15 97.5 F L 75 16 106/66 96 04/09/18 07:45 80 04/09/18 07:19 77 96 04/09/18 07:00 97.6 F 71 18 119/60 99 04/09/18 05:46 98.8 F 04/09/18 04:47 99.4 F 97 24 142/67 96 04/09/18 04:39 92 04/09/18 04:27 96 04/09/18 04:25 109 H 32 H 04/09/18 03:02 101.8 F H 109 H 22 156/77 96 04/09/18 02:55 102.4 F H 04/08/18 22:18 75 18 04/08/18 21:52 98.4 F 75 18 158/82 96 04/08/18 19:29 72 125/63 Intake and Output 04/09/18 04/09/18 04/09/18 06:59 14:59 22:59 Intake Total 800 Output Total 0 Balance 800 Intake: IV 800 Output: Estimated Blood Loss 0 Other: Voiding Method Toilet Toilet Toilet # Voids 1 1 Results - Laboratory Findings CBC and BMP: 04/09/18 03:36 04/09/18 03:36 PT/INR, D-dimer PT 20.6 sec (9.0-12.0) H 04/09/18 03:36 INR 2.3 (<1.2) H 04/09/18 03:36 Abnormal lab findings: Abnormal Labs 04/08/18 04/08/18 04/08/18 11:21 11:21 11:21 WBC 17.2 H Neutrophils # 15.2 H Lymphocytes # 0.9 L PT 19.7 H INR 2.2 H APTT 31.3 H BUN 21 H Creatinine 1.50 H Glucose 122 H Total Bilirubin 3.3 H Urine Appearance Urine Protein Ur Leukocyte Esterase Urine WBC Urine WBC Clumps Calcium Oxalate Crystal Urine Bacteria Urine Mucus Free [place] LC, Quant 04/08/18 04/08/18 04/09/18 11:21 16:30 03:36 WBC Neutrophils # Lymphocytes # PT 20.6 H INR 2.3 H APTT BUN Creatinine Glucose Total Bilirubin Urine Appearance Cloudy H Urine Protein Trace H Ur Leukocyte Esterase Large H Urine WBC >182 H Urine WBC Clumps Few H Calcium Oxalate Crystal Rare H Urine Bacteria Many H Urine Mucus Rare H Free [place] LC, Quant 2.62 H 04/09/18 04/09/18 03:36 03:36 WBC 16.5 H Neutrophils # 15.2 H Lymphocytes # 0.4 L PT INR APTT BUN 24 H Creatinine 1.80 H Glucose 110 H Total Bilirubin Urine Appearance Urine Protein Ur Leukocyte Esterase Urine WBC Urine WBC Clumps Calcium Oxalate Crystal Urine Bacteria Urine Mucus Free [place] LC, Quant Assessment and Plan Plan: This is a joint evaluation with the SEROLOGIST. The patient is cleared for surgery from the pulmonary standpoint. I contacted Dr Kellogg and discussed this with him. She have her surgery under general anesthesia and she needs to be watched closely for any post op pulmonary alveolar hypoventilation or apneas as the patient is at a higher risk for this.
[2018-04-09] MEDS ORDERED: IV FLUID CONTINUATION 1,000 ML IV ONE (11:01)
[2018-04-09] MEDS ORDERED: LIDOCAINE 1% INJ 10MG/ML (20 ML MDV) ONE (11:39)
[2018-04-09] MEDS ORDERED: fentaNYL (PF) 50 MCG/ML 2 ML AMP ONE (11:39)
[2018-04-09] MEDS ORDERED: MIDAZOLAM 2 MG/2 ML VIAL ONE (11:39)
[2018-04-09] MEDS ORDERED: PROPOFOL 10 MG/ML 20 ML VIAL IV ONE (11:39)
[2018-04-09] MEDS ORDERED: SUCCINYLCHOLINE CHLORIDE 100 MG/5 ML SYR IV ONE (11:39)
[2018-04-09] MEDS ORDERED: IOPAMIDOL-300 CONTRAST 30 ML VIAL (ORAL USE) PO ONE (12:16)
--- NOTE | 2018-04-09 12:43 | P.OP ---
Date of Procedure: 04/09/18 Preoperative Diagnosis: Right hydronephrosis secondary to right ureteral calculus Postoperative Diagnosis: Same Procedure(s) Performed: Cystoscopy, right retrograde pyelogram, right ureteral stent insertion Anesthesia: ALEXA Surgeon: Daniel Kellogg Estimated Blood Loss (ml): 0 IV fluids (ml): 400 Pathology: none sent Condition: stable Disposition: PACU Indications for Procedure: The patient is a 73-year-old white female admitted yesterday with fever and right flank pain. She was found to have leukocytosis. A computed tomography scan showed moderate right hydronephrosis with an apparent small calculus at the UPJ. She now comes for stent placement. Operative Findings: Purulent urine drained from right renal pelvis. Description of Procedure: The patient was taken to the operating room and placed in the dorsolithotomy position, with legs supported in Toño stirrups. The external genitalia was prepped and draped sterilely. The 30 lens was used to introduce the 22-[place]er Stortz cystoscopic sheath through the urethra and into the bladder under direct vision. The bladder was examined in its entirety. Both ureteral orifices were of normal anatomic location and configuration. Patchy erythema was noted, consistent with cystitis. No tumors or foreign bodies were seen. A 0.035 inch Glidewire was passed through the cystoscope. The right ureteral orifice was cannulated, and the Glidewire was slowly advanced up to the renal pelvis. A 28 cm, 6-[place]er double-J ureteral stent was placed over the wire. Purulent urine draining from the stent, but the position of the stent within the renal pelvis appeared abnormal. Therefore, the Glidewire was passed through the stent, which was removed, and a 5-[place]er open-ended catheter was advanced over the wire , up to the right renal pelvis. Contrast was injected to delineate the anatomy of the renal pelvis, which was small. The ureter inserted into the renal pelvis medially, and a high position. The Glidewire was passed through the open -ended catheter, which was removed, and the stent was placed over the wire. Proper stent positioning was verified fluoroscopically and endoscopically. Once again, purulent urine was noted to drain from the stent. The bladder was emptied and the cystoscope removed. The patient tolerated the procedure well was taken to the recovery room in stable condition.
[2018-04-09 13:02] LABS: Glucose,Whole Blood 97 mg/dL (75-99)
--- NOTE | 2018-04-09 13:05 | FL ---
EXAMINATION TYPE: FL urography retrograde DATE OF EXAM: 04/09/2018 COMPARISON: NONE HISTORY: Fluoroscopy TECHNIQUE: Fluoroscopy. FINDINGS: 1 minute and 36 seconds of fluoroscopy provided. IMPRESSION: As Above.
--- NOTE | 2018-04-09 14:09 | P.PN ---
Subjective Progress Note Date: 04/09/18 Is a pleasant 73-year-old lady patient of Dr. Jesús Castro, Dr Chi. She has underlying history of COPD chronic hypoxemia on O2 nasal cannula 22/06 , lymphedema atrial fibrillation diabetes mellitus type 2, hypertension impaired balance on a walker scooter for Commit ambulation admitted to emergency room secondary to fever abdominal pain and flank pain. Patient has been ill for approximately one week, this has started when the patient started using supplement for weight loss over the counter and thereafter started having abdominal pain and flank pain. Patient had nausea no vomiting no fever no melena and , flank pain that started in the after first for about a week and 1 day prior to admission he had flank pain on the right leg patient denies any hematuria no recent medication changes from recent doctors. Patient was calm when seen, denies any nausea no vomiting, abdominal pain and flank pain is improved. 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 Patient was admitted with IV antibiotics for pyelonephritis, consult with Dr. Chi urology secondary to obstructing right ureteral stone with mild hydronephrosis 04/09: Patient has been seen by Dr. Kellogg with recommendations for cystoscopy with right ureter stent insertion. Patient has been seen by Dr. Castro and patient cleared for surgery. Patient is currently gone for procedure. Repeat INR 2.3, BUN 24 and creatinine 1.8. Urine culture is in progress. Patient has been continued on Rocephin. Objective - Vital Signs Vital signs: Vital Signs Temp 97.6 F 04/09/18 07:00 Pulse 80 04/09/18 07:45 Resp 18 04/09/18 07:00 BP 119/60 04/09/18 07:00 Pulse Ox 96 04/09/18 07:19 Intake & Output 04/08/18 04/09/18 04/09/18 18:59 06:59 18:59 Weight 175.994 kg Other: Voiding Method Toilet Toilet Toilet # Voids 1 - Exam General appearance: cooperative, morbidly obese, no acute distress - EENT Eyes: anicteric sclerae, EOMI, PERRLA, dentition normal ENT: no hard of hearing, no hearing grossly normal, NA/AT, normal oropharynx, no other, no pharyngeal erythema, no thrush, no tonsillar exudates, no tonsillar swelling - Neck Neck: no lymphadenopathy, normal ROM, no other, no rigidity, no stridor, no thyromegaly - Respiratory Respiratory: bilateral: CTA, diminished, negative: rales, wheezing, prolonged expiration, prolonged inspiration - Cardiovascular Rhythm: regular Heart sounds: normal: S1, S2 Abnormal Heart Sounds: no systolic murmur, no diastolic murmur, no rub, no S3 Gallop, no S4 Gallop, no click, no other - Gastrointestinal General gastrointestinal: no absent bowel sounds, no decreased bowel sounds, no distended, no hepatomegaly, no hyperactive bowel sounds, normal bowel sounds, no organomegaly, no rigid, no scaphoid, soft, no splenomegaly, no tenderness, no umbilical hernia, no ventral hernia - Integumentary Integumentary: normal, normal turgor - Neurologic Neurologic: CNII-XII intact - Musculoskeletal Musculoskeletal: strength equal bilaterally - Psychiatric Psychiatric: A&O x's 3, appropriate affect, intact judgment & insight - Labs CBC & Chem 7: 04/09/18 03:36 04/09/18 03:36 Labs: Abnormal Lab Results - Last 24 Hours (Table) 04/08/18 04/08/18 04/08/18 Range/Units 11:21 11:21 11:21 WBC 17.2 H (3.8-10.6) k/uL Neutrophils # 15.2 H (1.3-7.7) k/uL Lymphocytes # 0.9 L (1.0-4.8) k/uL PT 19.7 H (9.0-12.0) sec INR 2.2 H (<1.2) APTT 31.3 H (22.0-30.0) sec BUN 21 H (7-17) mg/dL Creatinine 1.50 H (0.52-1.04) mg/dL Glucose 122 H (74-99) mg/dL Total Bilirubin 3.3 H (0.2-1.3) mg/dL Urine Appearance (Clear) Urine Protein (Negative) Ur Leukocyte Esterase (Negative) Urine WBC (0-5) /hpf Urine WBC Clumps (None) /hpf Calcium Oxalate Crystal (None) /hpf Urine Bacteria (None) /hpf Urine Mucus (None) /hpf 04/08/18 04/09/18 04/09/18 Range/Units 11:21 03:36 03:36 WBC 16.5 H (3.8-10.6) k/uL Neutrophils # 15.2 H (1.3-7.7) k/uL Lymphocytes # 0.4 L (1.0-4.8) k/uL PT 20.6 H (9.0-12.0) sec INR 2.3 H (<1.2) APTT (22.0-30.0) sec BUN (7-17) mg/dL Creatinine (0.52-1.04) mg/dL Glucose (74-99) mg/dL Total Bilirubin (0.2-1.3) mg/dL Urine Appearance Cloudy H (Clear) Urine Protein Trace H (Negative) Ur Leukocyte Esterase Large H (Negative) Urine WBC >182 H (0-5) /hpf Urine WBC Clumps Few H (None) /hpf Calcium Oxalate Crystal Rare H (None) /hpf Urine Bacteria Many H (None) /hpf Urine Mucus Rare H (None) /hpf 04/09/18 Range/Units 03:36 WBC (3.8-10.6) k/uL Neutrophils # (1.3-7.7) k/uL Lymphocytes # (1.0-4.8) k/uL PT (9.0-12.0) sec INR (<1.2) APTT (22.0-30.0) sec BUN 24 H (7-17) mg/dL Creatinine 1.80 H (0.52-1.04) mg/dL Glucose 110 H (74-99) mg/dL Total Bilirubin (0.2-1.3) mg/dL Urine Appearance (Clear) Urine Protein (Negative) Ur Leukocyte Esterase (Negative) Urine WBC (0-5) /hpf Urine WBC Clumps (None) /hpf Calcium Oxalate Crystal (None) /hpf Urine Bacteria (None) /hpf Urine Mucus (None) /hpf Microbiology - Last 24 Hours (Table) 04/08/18 11:24 Urine Culture - Preliminary Urine,Voided Assessment and Plan Plan: 1. Acute Pyelonephritis with bilateral renal stones, obstructing left proximal ureteral stone, producing moderate right hydronephrosis. Continue ceftriaxone. Dr. Kellogg has evaluated patient with recommendations for cystoscopy with right ureteral stent insertion. Cleared by Dr. Castro. Patient will need right ureteral scope after the infection has resolved. Urine culture in progress. Coumadin on hold. 2. COPD with chronic hypoxemic respiratory failure on maintenance O2 nasal cannula 22/06. Consult with Dr. Castro for preop clearance. 3. Paroxysmal atrial fibrillation on anticoagulation, Coumadin on hold secondary to anticipated procedure for urology 4. Previous kidney stones in the past with difficulty with stent placement, obtain phosphorus, vitamin D, PTH, And lambda chain 5. Hypothyroidism on [place] Thyroid 30 mg daily 6. Diabetes mellitus type 2 not on any oral agents before meals at bedtime Accu- Cheks, hemoglobin A1c 7. CKD stage III Baseline creatinine between 1.5-2.06 avoid nephrotoxins discontinue Motrin, avoid hypotension 8. Hypertension on Trandate 100 mg twice a day 9. Chronic lymphedema, stable not on diuretics no adjustments needed at this time 10. Impaired mobility, scooter and walker on community ambulation 11. Long-term anticoagulation, discontinue Coumadin and monitor for INR, anticipate urology procedure for left hydronephrosis caused by proximal ureteral stone 12. Super obesity with BMI over 60 Discharge plan: Return home. Impression and plan of care have been directed as dictated by the signing physician. America Sood nurse practitioner acting as scribe for signing physician.
[2018-04-09 14:11] LABS: Hemoglobin A1C 5.5 % (4.0-6.0)
[2018-04-09] MEDS: ASCORBIC ACID 500 MG TAB PO SCH (17:19)
[2018-04-09] MEDS: MAGNESIUM OXIDE 400 MG TAB PO SCH (17:19)
[2018-04-09] MEDS: MELATONIN 3 MG TABLET PO SCH (20:38)
[2018-04-09] MEDS: CHOLECALCIFEROL 1,000 UNIT TAB PO SCH (20:38)
[2018-04-09 21:45] VITALS: RESP 18
[2018-04-10] MEDS: THYROID, PORK 30 MG TAB PO SCH (05:26)
[2018-04-10] MEDS: SODIUM CHLORIDE 0.9% 1,000 ML IV SCH ×3 (05:27→15:26)
[2018-04-10 07:22] LABS: Basophils % (A) 0 %; Eosinophils # (A) 0.2 k/uL (0-0.7); Eosinophils % (A) 1 %; HCT 39.2 % (34.0-46.0); HGB 12.6 gm/dL (11.4-16.0); Hypochromasia Slight; Lymphocytes # (A) 0.6 k/uL (1.0-4.8); Lymphocytes % (A) 5 %; MCH 28.3 pg (25.0-35.0); MCHC 32.2 g/dL (31.0-37.0); MCV 87.8 fL (80.0-100.0); Mean Platelet Volume 8.3; Monocytes # (A) 0.5 k/uL (0-1.0); Monocytes % (A) 4 %; Neutrophils % (A) 87 %; Platelet Count 172 k/uL (150-450); RBC 4.47 m/uL (3.80-5.40); RDW 14.4 % (11.5-15.5); WBC 11.5 k/uL (3.8-10.6)
[2018-04-10 07:32] LABS: Calcium 8.6 mg/dL (8.4-10.2); Potassium 4.6 mmol/L (3.5-5.1)
[2018-04-10 07:41] LABS: INR 2.2 (<1.2); Prothrombin Time 19.9 sec (9.0-12.0)
[2018-04-10] MEDS: PANTOPRAZOLE 40 MG/10 ML VIAL IV SCH (08:01)
[2018-04-10] MEDS: MAGNESIUM OXIDE 400 MG TAB PO SCH (08:01)
[2018-04-10] MEDS: cefTRIAXone IN SWFI 1,000 MG/10 ML SYRINGE IVP SCH (08:01)
[2018-04-10] MEDS: HEPARIN SODIUM,PORCINE 5,000 UNIT/ML 1 ML VIAL SQ SCH (08:01)
[2018-04-10] MEDS: LABETALOL 100 MG TAB PO SCH ×2 (08:02→17:53)
[2018-04-10] MEDS: ASCORBIC ACID 500 MG TAB PO SCH (08:02)
[2018-04-10] MEDS: ALBUTEROL NEBULIZED 2.5 MG/3 ML INHALATION PRN (08:15)
[2018-04-10] MEDS: BUDESONIDE 0.5 MG/2 ML NEBU INHALATION SCH (08:15)
--- NOTE | 2018-04-10 10:18 | P.PN ---
Subjective Progress Note Date: 04/10/18 The patient had a stent placed by for an obstructing ureter on the right side. Per CAT scan it may be due to a 6 mm stone although her ureter is somewhat unusual so that is difficult to say. She does appear to have somewhat of a UPJ obstruction. Regardless she did have relief of the obstruction. Per Dr. Castro is okay to proceed with a full general anesthetic. Therefore at a later date she'll need ureteroscopy stent and evaluation of the UPJ with stone removal if indicated or perhaps even dilation of the UPJ. From a urologic standpoint she can be discharged home Objective - Vital Signs Vital signs: Vital Signs Temp 98.4 F 04/10/18 05:05 Pulse 92 04/10/18 08:29 Resp 18 04/10/18 05:05 BP 139/65 04/10/18 05:05 Pulse Ox 95 04/10/18 08:16 Intake & Output 04/09/18 04/10/18 04/10/18 18:59 06:59 18:59 Intake Total 800 Output Total 0 Balance 800 Intake: IV 800 Output: Estimated Blood Loss 0 Other: Voiding Method Toilet Toilet Toilet # Voids 1 3 - Labs CBC & Chem 7: 04/10/18 06:41 04/10/18 06:41 Labs: Abnormal Lab Results - Last 24 Hours (Table) 04/08/18 04/10/18 04/10/18 Range/Units 16:30 06:41 06:41 WBC 11.5 H (3.8-10.6) k/uL Neutrophils # 10.0 H (1.3-7.7) k/uL Lymphocytes # 0.6 L (1.0-4.8) k/uL PT 19.9 H (9.0-12.0) sec INR 2.2 H (<1.2) BUN (7-17) mg/dL Creatinine (0.52-1.04) mg/dL Free [place]etr[place] LC, Quant 2.62 H (0.33-1.94) mg/dL 04/10/18 Range/Units 06:41 WBC (3.8-10.6) k/uL Neutrophils # (1.3-7.7) k/uL Lymphocytes # (1.0-4.8) k/uL PT (9.0-12.0) sec INR (<1.2) BUN 30 H (7-17) mg/dL Creatinine 1.81 H (0.52-1.04) mg/dL Free [place]etr[place] LC, Quant (0.33-1.94) mg/dL Microbiology - Last 24 Hours (Table) 04/09/18 03:30 Blood Culture - Preliminary Blood No Growth after 24 hours 04/08/18 11:24 Urine Culture - Preliminary Urine,Voided Gram Neg Bacilli 04/08/18 11:21 Blood Culture - Preliminary Blood No Growth after 24 hours
[2018-04-10 14:24] VITALS: BMI 60.7
--- NOTE | 2018-04-10 14:34 | P.PN ---
Subjective Progress Note Date: 04/10/18 Mrs. Liu is a 73-year-old white female patient of Dr. Espinosa, who presented to the emergency department on 04/08/2018 1041 with complaints of fever, chills, dysuria, and right flank pain that started on Thursday. She has a previous history of kidney stones on the left, with previous ureteral stent placement. Other medical history includes mild intermittent asthma, and patient had her last exacerbation with bronchitis last year in May 2017, after which a significant drop in her FEV1 was noted from her baseline of 66% down to 36% of predicted. No episodes of asthma exacerbation since then requiring steroid or antibiotic treatment. Patient has DuoNeb nebulized treatments at home which she uses on an as-needed basis, and has not had to use it at all in the last several months. Has a Pro-Air inhaler which she has not used at all since her last exacerbation in 2016. Patient a home sleep study during which she was only able to sleep with 3 hours, and and she states was negative for POLA. Patient does wear 2 L of oxygen at bedtime. She does get shortness of breath with exertion at her baseline, and right now that has not changed. Other medical problems include morbid obesity, hypothyroidism, chronic atrial fibrillation on anticoagulation, hyperlipidemia, hypertension, osteoarthritis, chronic kidney disease, chronic lymphedema in her legs. On her presentation to the emergency department patient was febrile with a temp of 102 degrees Fahrenheit, she had leukocytosis, WBC was 17.2, lactic acid was within normal limits at 1.0, urinalysis showed pyuria, and bacteriuria. Blood cultures, urine cultures were sent, patient was started on empiric antibiotics in the form of Rocephin. She was given 2 L IV bolus of 0.9 normal saline. EKG showed atrial fibrillation with a ventricular rate of 91 BPM. Abdomen/pelvis CT showed a obstructive proximal right ureteral stone with mild right hydronephrosis measuring 0.6 cm, with small amount of air within the ureter. There were nonobstructing bilateral renal stones seen as well. There was diverticulosis without any evidence of diverticulitis. She was seen in consultation by Dr. Kellogg from urology and the plan is to proceed with cystoscopy with right ureteral stent insertion. Asked to see the patient for a preop clearance. Patient reports having a problem with her breathing during her previous cystoscopy and left ureteral stent placement in the past. She could not elaborate and the details, but she denies having any acute ALLERGIC reaction. Currently she is stable, her chest x-ray was reviewed, and did not show any evidence of any acute cardiopulmonary process. Patient denies any chest congestion, denies any sputum production. Her lung sounds are clear to auscultation. On 04/10/2018, I'm seeing this patient for a follow-up. The patient underwent a urologic procedure without any major complications. This morning she did bit more congested than the usual. No significant sputum production. Her hemoglobin is at 11.5. She is fully articulated an INR of 2.2. Creatinine is up to 1.8. Her urine culture is positive for E. coli. Blood cultures been negative. Based on her ongoing chest congestion, I give the patient incentive spirometer, and I ordered a chest x-ray in addition to albuterol about treatments around the clock. Patient is morbidly obese. Objective - Vital Signs Vital signs: Vital Signs Temp 98.4 F 04/10/18 05:05 Pulse 92 04/10/18 08:29 Resp 18 04/10/18 05:05 BP 139/65 04/10/18 05:05 Pulse Ox 97 04/10/18 10:56 Intake & Output 04/09/18 04/10/18 04/10/18 18:59 06:59 18:59 Intake Total 800 Output Total 0 Balance 800 Intake: IV 800 Output: Estimated Blood Loss 0 Other: Voiding Method Toilet Toilet Toilet # Voids 1 3 - Exam - Constitutional General appearance: morbidly obese, no acute distress - EENT Eyes: EOMI, PERRLA, normal appearance ENT: NA/AT, normal oropharynx Ears: bilateral: normal - Neck Neck: no lymphadenopathy, normal ROM Carotids: bilateral: upstroke normal Thyroid: bilateral: normal size - Respiratory Respiratory: bilateral: CTA, diminished (At the bases) - Cardiovascular Rhythm: regular Heart sounds: normal: S1, S2 ankle Peripheral Edema: bilateral: Other (Chronic lymphedema of bilateral lower extremities) dorsalis pedis Peripheral Pulses: bilateral: Normal - Gastrointestinal General gastrointestinal: no organomegaly, soft, no tenderness - Integumentary Integumentary: normal turgor - Neurologic Neurologic: CNII-XII intact - Musculoskeletal Musculoskeletal: gait normal, strength equal bilaterally - Psychiatric Psychiatric: A&O x's 3, appropriate affect, intact judgment & insight - Labs CBC & Chem 7: 04/10/18 06:41 04/10/18 06:41 Labs: Abnormal Lab Results - Last 24 Hours (Table) 04/10/18 04/10/18 04/10/18 Range/Units 06:41 06:41 06:41 WBC 11.5 H (3.8-10.6) k/uL Neutrophils # 10.0 H (1.3-7.7) k/uL Lymphocytes # 0.6 L (1.0-4.8) k/uL PT 19.9 H (9.0-12.0) sec INR 2.2 H (<1.2) BUN 30 H (7-17) mg/dL Creatinine 1.81 H (0.52-1.04) mg/dL Microbiology - Last 24 Hours (Table) 04/08/18 11:21 Blood Culture - Preliminary Blood No Growth after 48 hours 04/08/18 11:24 Urine Culture - Final Urine,Voided Escherichia coli 04/09/18 03:30 Blood Culture - Preliminary Blood No Growth after 24 hours Assessment and Plan Plan: #1. Acute obstructive right ureteral urolithiasis with moderate right hydronephrosis with acute pyelonephritis. The patient underwent a cystoscopy and retrograde pyelogram and right ureteral stent insertion on the general anesthesia. The patient was found to have positive E. coli in the urine cultures. Currently on IV Rocephin. #2. Acute on chronic kidney injury secondary to the above #3. Mild intermittent asthma, complaining of some cough and congestion. #4. Hypothyroidism, on thyroid replacement #5. Chronic atrial fibrillation, currently in sinus rhythm, on chronic anticoagulation with Coumadin #6. Morbid obesity, with a BMI of 60.8 kg/m #7. Previous left urolithiasis with stent placement #8. Chronic lymphedema in bilateral lower extremities #9. Hypertension, hyperlipidemia #10. Chronic hypoxemic respiratory failure possibly related to underlying obstructive sleep apnea, patient wears oxygen at bedtime only Plan Use albuterol neb 4 times a day [id number]. Continue Pulmicort Respules. Provide the patient incentive spirometer. Chest x-ray. If negative ,she'll be cleared for discharge.
[2018-04-10] MEDS ORDERED: ALBUTEROL NEBULIZED 2.5 MG/3 ML INHALATION SCH (16:00)
[2018-04-10 16:12] VITALS: BP 120/73; TEMP 98.6
--- NOTE | 2018-04-10 16:47 | P.DS ---
Providers Date of admission: 04/08/18 12:35 Attending physician: Yadira Pratt Consults: 04/08/18 13:24 Consult Physician Stat Consulting Provider: Daniel Kellogg Consult Reason/Comments: Septic, Right Proximal urteral stone, pyelnephritis Do you want consulting provider notified?: Yes 04/08/18 21:58 Consult Physician Routine Consulting Provider: Erika Castro Consult Reason/Comments: Pre-op clearance Do you want consulting provider notified?: Yes Primary care physician: [facility] Course: s a pleasant 73-year-old lady patient of Dr. Jesús Castro, Dr Chi. She has underlying history of COPD chronic hypoxemia on O2 nasal cannula 22/06, lymphedema atrial fibrillation diabetes mellitus type 2, hypertension impaired balance on a walker scooter for Commit ambulation admitted to emergency room secondary to fever abdominal pain and flank pain. Patient has been ill for approximately one week, this has started when the patient started using supplement for weight loss over the counter and thereafter started having abdominal pain and flank pain. Patient had nausea no vomiting no fever no melena and , flank pain that started in the after first for about a week and 1 day prior to admission he had flank pain on the right leg patient denies any hematuria no recent medication changes from recent doctors. Patient was calm when seen, denies any nausea no vomiting, abdominal pain and flank pain is improved. 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 Patient was admitted with IV antibiotics for pyelonephritis, consult with Dr. Chi urology secondary to obstructing right ureteral stone with mild hydronephrosis 04/09: Patient has been seen by Dr. Kellogg with recommendations for cystoscopy with right ureter stent insertion. Patient has been seen by Dr. Castro and patient cleared for surgery. Patient is currently gone for procedure. Repeat INR 2.3, BUN 24 and creatinine 1.8. Urine culture is in progress. Patient has been continued on Rocephin. 04/10. Patient examined at bedside. Sitting comfortably with no oxygen requirement. Appears congested. Chest x-ray ordered. Neurology has cleared the patient for discharge. Patient will be discharged on Keflex for 11 days to complete a course of 14 days Discharge diagnoses 1. Acute Pyelonephritis with bilateral renal stones, obstructing left proximal ureteral stone, producing moderate right hydronephrosis status post cystoscopy with right ureteral stent insertion. 2. COPD with chronic hypoxemic respiratory failure on maintenance O2 nasal cannula 22/06. 3. Paroxysmal atrial fibrillation on anticoagulation 4. Previous kidney stones in the past with difficulty with stent placement 5. Hypothyroidism 6. Diabetes mellitus type 2 7. CKD stage III Baseline creatinine between 1.5-2.06 8. Hypertension 9. Chronic lymphedema 10. Impaired mobility 11. Long-term anticoagulation 12. Super obesity with BMI over 60 Disposition home with self-care CC a copy of discharge to Dr. Espinosa CC a copy of discharge to Dr. White Patient Condition at Discharge: Stable Plan - Discharge Summary Discharge Rx Participant: Yes New Discharge Prescriptions: New Cephalexin [Keflex] 250 mg PO Q8HR #33 capsule Continue Thyroid,Pork [[place] Thyroid] 30 mg PO DAILY Labetalol [Trandate] 100 mg PO BID-W/MEALS Iodine Supplement 1 tab PO DAILY Warfarin [Coumadin] 2.5 mg PO TUTHSA Warfarin Sodium 10 mg PO HS Turmeric Root Extract [Turmeric] 500 mg PO HS Magnessium 666mg 666 mg PO DAILY Ascorbic Acid [Vitamin C] 500 mg PO DAILY Ubiquinol 100 mg PO DAILY Cholecalciferol [Vitamin D3] 5,000 unit PO HS Grape Seed Oil 1 cap PO BID Discharge Medication List Labetalol [Trandate] 100 mg PO BID-W/MEALS 04/09/15 [History] Thyroid,Pork [[place] Thyroid] 30 mg PO DAILY 04/09/15 [History] Iodine Supplement 1 tab PO DAILY 11/12/15 [History] Ascorbic Acid [Vitamin C] 500 mg PO DAILY 04/08/18 [History] Cholecalciferol [Vitamin D3] 5,000 unit PO HS 04/08/18 [History] Grape Seed Oil 1 cap PO BID 04/08/18 [History] Magnessium 666mg 666 mg PO DAILY 04/08/18 [History] Turmeric Root Extract [Turmeric] 500 mg PO HS 04/08/18 [History] Ubiquinol 100 mg PO DAILY 04/08/18 [History] Warfarin Sodium 10 mg PO HS 04/08/18 [History] Warfarin [Coumadin] 2.5 mg PO TUTHSA 04/08/18 [History] Cephalexin [Keflex] 250 mg PO Q8HR #33 capsule 04/10/18 [Rx] Follow up Appointment(s)/Referral(s): Daniel Kellogg MD [STAFF PHYSICIAN] - 1 Week Too Espinosa DO [Primary Care Provider] - 1-2 days (Patient to call Dr. Espinosa's office Thursday morning to schedule follow up appointment. The office is closed at time of discharge.) Patient Instructions/Handouts: Cephalexin (By mouth), Kidney Infection (DC), Sepsis (GEN) Discharge Disposition: HOME SELF-CARE
[2018-04-10 17:11] VITALS: PULSE 92
--- NOTE | 2018-04-10 17:56 | XR ---
EXAMINATION TYPE: XR chest 2V DATE OF EXAM: 04/10/2018 COMPARISON: 04/09/2018 TECHNIQUE: PA and lateral views submitted. HISTORY: Respiratory FINDINGS: The lungs are clear and there is no pneumothorax, pleural effusion, or focal pneumonia. Heart is en larged right hilar prominence. No pleural effusion or pneumothorax. Mild interstitial prominence. Deg enerative change of the spine. IMPRESSION: 1. Cardiomegaly and right hilar prominence. This could partially be related to rotation. Recommend fo llow-up x-ray. If findings persists then CT scan could be obtained. 2 correlate for mild central venous congestion or pneumonitis.
[2018-04-11] MEDS ORDERED: PANTOPRAZOLE 40 MG TABLET PO SCH (07:30)
--- NOTE | 2018-04-12 17:34 | CDI ---
Last Revision, October 2017 Documentation Clarification Form Date: 04/12/18 From: Katelyn Loza Phone: If you have a question regarding this query, please contact Jody Chew at [phone] between 8am and 5pm. Admit Date: 04/08/2018 12:35:00 PM Patient Name: Leann Liu Visit Number: [id number] Discharge Date: 04/10/18 ATTENTION: The Clinical Documentation Specialists (CDI) and [facility] Coding Staff appreciate your assistance in clarifying documentation. Please respond to the clarification below the line at the bottom and electronically sign. The CDI & [facility] Coding staff will review the response and follow-up if needed. Please note: Queries are made part of the Legal Health Record. If you have any questions, please contact the author of this message via ITS. Dr. Moe Disla Sepsis is documented in the ED note and in Dr. Castro's consult note. Patient history/risk factors: Patient was admitted with acute pyelonephritis with right ureteral stone and obstruction. Clinical Indicators: Fever and leukocytosis. Lab findings: WBC 17.2, lactic acid 1.0 Vital Signs: T. 102.0, P. 90, R. 20, BP 145/82 Treatment: IV Rocephin In your professional opinion, can you please clarify if Sepsis was? Ruled In Ruled Out Other, please specify Unable to determine ruled in MTDD
== END 2018-04-10 19:15 | disposition home or self-care (01) | DRG 872 ==
LOC: EC 10:41 → 5MS5E 12:35
PROVIDERS: ADMIT Internal Medicine; ATTEND Internal Medicine
PROC: 0T768DZ Dilation of Right Ureter with Intraluminal Device, Via Natural or Artificial Opening Endoscopic (ICD-10-PCS; 2018-04-09)
PROC: BT1D1ZZ Fluoroscopy of Right Kidney, Ureter and Bladder using Low Osmolar Contrast (ICD-10-PCS; principal; 2018-04-09 07:30)
DX: A41.9 Sepsis, unspecified organism (principal); N13.6 Pyonephrosis; J96.11 Chronic respiratory failure with hypoxia; Z68.44 Body mass index [BMI] 60.0-69.9, adult; N17.9 Acute kidney failure, unspecified; B96.20 Unspecified Escherichia coli [E. coli] as the cause of diseases classified elsewhere; E03.9 Hypothyroidism, unspecified; E11.22 Type 2 diabetes mellitus with diabetic chronic kidney disease; E66.01 Morbid (severe) obesity due to excess calories; E78.5 Hyperlipidemia, unspecified; I12.9 Hypertensive chronic kidney disease with stage 1 through stage 4 chronic kidney disease, or unspecified chronic kidney disease; I48.2 Chronic atrial fibrillation; I89.0 Lymphedema, not elsewhere classified; J44.9 Chronic obstructive pulmonary disease, unspecified; J45.20 Mild intermittent asthma, uncomplicated; K57.90 Diverticulosis of intestine, part unspecified, without perforation or abscess without bleeding; M19.90 Unspecified osteoarthritis, unspecified site; N18.3 Chronic kidney disease, stage 3 (moderate); I83.90 Asymptomatic varicose veins of unspecified lower extremity; N28.1 Cyst of kidney, acquired; R26.9 Unspecified abnormalities of gait and mobility; Z79.01 Long term (current) use of anticoagulants; Z79.890 Hormone replacement therapy; Z79.899 Other long term (current) drug therapy; Z90.710 Acquired absence of both cervix and uterus; Z87.442 Personal history of urinary calculi; Z85.828 Personal history of other malignant neoplasm of skin; Z87.01 Personal history of pneumonia (recurrent); Z88.1 Allergy status to other antibiotic agents; Z88.2 Allergy status to sulfonamides; Z88.8 Allergy status to other drugs, medicaments and biological substances; Z90.49 Acquired absence of other specified parts of digestive tract; Z83.3 Family history of diabetes mellitus; Z82.49 Family history of ischemic heart disease and other diseases of the circulatory system; Z82.1 Family history of blindness and visual loss; Z82.0 Family history of epilepsy and other diseases of the nervous system
CPT/HCPCS: 36415; 71046; 74176; 74420; 80048; 80053; 81001; 83036; 83605; 83883; 83970; 84100; 84443; 85025; 85610; 85730; 87040; 87077; 87086; 87186; 93005; 94640; 94760; 96361; 96374; 96376; 99285

== ENCOUNTER → 2018-04-14 | Outpatient (CLI) | payer MEDICARE ==
[2018-04-14 14:44] LABS: HCT 41.1 % (34.0-46.0); HGB 13.6 gm/dL (11.4-16.0); MCH 28.2 pg (25.0-35.0); MCV 85.4 fL (80.0-100.0); Mean Platelet Volume 7.3; Platelet Count 261 k/uL (150-450); RBC 4.82 m/uL (3.80-5.40); RDW 14.6 % (11.5-15.5); WBC 8.9 k/uL (3.8-10.6)
[2018-04-14 15:06] LABS: Calcium 9.4 mg/dL (8.4-10.2); Potassium 4.3 mmol/L (3.5-5.1)
[2018-04-14 15:32] LABS: Appearance,Urine Turbid (Clear); Bilirubin,Urine Negative (Negative); Blood,Urine Moderate (Negative); Color,Urine Yellow; Glucose,Urine (UA) Negative (Negative); Ketones,Urine Negative (Negative); Leukocyte Esterase,Urine Large (Negative); Nitrite,Urine Negative (Negative); Protein,Urine 1+ (Negative); Specific Gravity,Urine 1.013 (1.001-1.035); Urobilinogen,Urine <2.0 mg/dL (<2.0)
[2018-04-14 15:33] LABS: Bacteria,Urine Many /hpf; Cellular Casts,Urine 6 /lpf (0); Mucus,Urine Few /hpf; RBC,Urine 36 /hpf (0-5); Squamous Epithelial Cell,Urine 10 /hpf (0-4); WBC,Urine >182 /hpf (0-5)
== END ==
LOC: LABPAT 14:17
PROVIDERS: ATTEND Urology
DX: Z01.812 Encounter for preprocedural laboratory examination (principal); N20.1 Calculus of ureter; I48.91 Unspecified atrial fibrillation; R31.0 Gross hematuria; Z79.899 Other long term (current) drug therapy
CPT/HCPCS: 36415; 80048; 81001; 85027; 87077; 87086; 87186

== ENCOUNTER 2018-04-21 09:33 | Day surgery (SDC) | payer MEDICARE ==
[2018-04-15 14:34] VITALS: BMI 61.0
[~2018-04-21 09:33] MED LIST: AMPICILLIN 1,000 MG in SODIUM CHLORIDE 0.9% 50 ML IVPB ONE; DEXTROSE 5%-0.45% NACL 1,000 ML IV SCH; GENTAMICIN 160 MG in SODIUM CHLORIDE 0.9% 100 ML IVPB ONE; HYDROmorphone PCA 5 MG/25 ML SYRINGE IV PRN; KETOROLAC 30 MG/ML 1 ML VIAL IVP PRN; LACTATED RINGERS 1,000 ML IV SCH; LIDOCAINE 1% 20 ML VIAL (10MG/ML) FOR IV START INTRADERMA PRN; MORPHINE SULFATE 2 MG/ML SYRINGE IV PRN; NALOXONE 0.4 MG/ML 1 ML VIAL IV PRN; ONDANSETRON 4 MG/2 ML VIAL IVP ONE; ONDANSETRON 4 MG/2 ML VIAL IVP PRN; THYROID PORK 30 MG PO SCH
--- NOTE | 2018-04-21 10:35 | XR ---
Abdomen HISTORY: Kidney stones Frontal view of the abdomen on 2 images correlated to prior abdomen 09/08/2017, CT abdomen pelvis 03/30 The heart is enlarged. Lung bases are clear. There is no evident pneumoperitoneum or bowel obstructio n. Surgical clips are present in the right upper quadrant. Double-J right ureteral stent is in place. Stent is superimposed over the spine, there may be a calcification present along the level of the pr oximal ureter although patient body habitus limits the exam. Left renal calculus is not well seen. IMPRESSION: Exam somewhat limited by patient body habitus.
[2018-04-21 10:39] LABS: Glucose,Whole Blood 94 mg/dL (75-99)
[2018-04-21 11:07] LABS: INR 1.2 (<1.2); Prothrombin Time 11.5 sec (9.0-12.0)
[2018-04-21] MEDS ORDERED: ePHEDrine SULFATE/0.9% NACL/PF 50 MG/5 ML SYRINGE IV ONE (13:07)
[2018-04-21] MEDS ORDERED: PHENYLEPHRINE-0.9% NACL SYG 1 MG/10 ML SYRINGE ONE (13:07)
[2018-04-21] MEDS ORDERED: ROCURONIUM BROMIDE 10 MG/ML 10 ML VIAL IV ONE (13:07)
[2018-04-21] MEDS ORDERED: MIDAZOLAM 2 MG/2 ML VIAL ONE (13:07)
[2018-04-21] MEDS ORDERED: LIDOCAINE 1% INJ 10MG/ML (20 ML MDV) ONE (13:07)
[2018-04-21] MEDS ORDERED: PROPOFOL 10 MG/ML 20 ML VIAL IV ONE (13:07)
[2018-04-21] MEDS ORDERED: SUCCINYLCHOLINE CHLORIDE VIAL 200 MG/10 ML VIAL IV ONE (13:07)
[2018-04-21] MEDS ORDERED: fentaNYL (PF) 50 MCG/ML 2 ML AMP ONE (13:07)
[2018-04-21] MEDS ORDERED: GLYCOPYRROLATE 0.2 MG/ML 2 ML VIAL ONE (13:07)
[2018-04-21] MEDS ORDERED: NEOSTIGMINE 1 MG/ML 10 ML VIAL ONE (13:07)
[2018-04-21] MEDS ORDERED: IOPAMIDOL-370 50ML BTL MISCELLANE ONE ×2 (14:01)
--- NOTE | 2018-04-21 14:48 | P.OP ---
Date of Procedure: 04/21/18 Preoperative Diagnosis: Right ureteral stones with hydronephrosis, urinary tract infection with sepsis morbid obesity Postoperative Diagnosis: Same, bifid renal pelvis Procedure(s) Performed: Cystoscopy, removal double-J catheter right, right ureteroscopy with laser lithotripsy. Replacement of double-J catheter 6 x 24 Anesthesia: KAMLESH Surgeon: Paul Chi Estimated Blood Loss (ml): 10 Pathology: none sent Condition: stable Disposition: PACU Indications for Procedure: The patient is a morbidly obese 73-year-old female with a history of recurrent urolithiasis. She is immobilized in a wheelchair bound due to her obesity. She recently had an stone dropped into what appeared to be the ureteropelvic junction however on computed tomography scan her anatomy was quite distorted. Dr. Kellogg performed a double-J catheter she now comes for ureteroscopy and laser lithotripsy. Description of Procedure: Patient is brought to the operating suite and given a general endotracheal anesthesia. With extra care her legs were placed in stirrups. Obesity we have and provides with blankets and tape. She is prepped and draped sterilely. Cystoscopy Foroblique lens and 22-Occitan sheath is introduced in the bladder. He is chronically inflamed with chronic cystitis. The double-J catheters identified and pulled to the urethral meatus. She has been on preoperative antibiotics due to her urine culture. Through the double-J catheter an 035 wires passed up the renal pelvis. Over the 035 wires passed [id number] reentry sheath. The the inner sheath was removed. I passed the flexible ureteroscope up into the renal pelvis. It into what appears to be an upper pole calyx and there are several small stones. I thus we'll try to do laser lithotripsy to see if I can remove the stones. Pull the ureteroscope out and introduced the laser probe, 275 and his I passed back up in the renal pelvis I cannot find the stones I looked throughout the collecting system thoroughly and what becomes evidence that she may have a bifid pelvis. I pulled back to the proximal ureter and do a retrograde pyelogram indeed she has a bifid pelvis and the stone on the whole collecting system. Some difficulty I'm able to reenter in the upper pole collecting system with the laser probe I break the stones into tiny fragments best I can tell. Due to the technical challenge of this I elected to replace the double-J catheter. The double-J catheters replaced back up into the collecting system over the working wire. I removed the working sheath and the wire. The double- J catheter appears to be in The renal pelvis and the bladder. the bladder is drained and the patient's awake and returned recovery in good condition. she toleratedthe procedure well She'll be discharged home upon recovery. I'll do a computed tomography scan a week to see if I can tell how well abdominal the stones. At some point in time the double-J catheter will have to be removed to see if she can pass the fragments. I suspect if this is not done successfully she'll need to go to a [facility] for further percutaneous evaluation due to her size the bifid system and the recurrent stone formation.
[2018-04-21 15:03] VITALS: TEMP 96.8
--- NOTE | 2018-04-21 15:38 | FL ---
EXAMINATION TYPE: FL urography retrograde DATE OF EXAM: 04/21/2018 COMPARISON: NONE HISTORY: Kidney stone Fluoroscopy support supplied to the referring clinician. See dictated report from urology, 4.47 isabel alayna fluoroscopy time, 2 intraoperative C-arm images document the procedure
[2018-04-21] MEDS ORDERED: CEPHALEXIN 250 MG CAP PO SCH (16:00)
[2018-04-21 16:26] VITALS: RESP 17
[2018-04-21 16:57] VITALS: BP 149/87; PULSE 87
[2018-04-21] MEDS ORDERED: LABETALOL 100 MG TAB PO SCH (17:30)
== END 2018-04-21 17:16 | disposition home or self-care (01) ==
LOC: OR 09:33
PROVIDERS: ATTEND Urology
DX: N13.2 Hydronephrosis with renal and ureteral calculous obstruction (principal); E66.01 Morbid (severe) obesity due to excess calories; N30.20 Other chronic cystitis without hematuria; I48.91 Unspecified atrial fibrillation; E78.5 Hyperlipidemia, unspecified; A41.9 Sepsis, unspecified organism; I10 Essential (primary) hypertension; E03.9 Hypothyroidism, unspecified; J44.9 Chronic obstructive pulmonary disease, unspecified; Q63.8 Other specified congenital malformations of kidney; Z99.3 Dependence on wheelchair; Z87.442 Personal history of urinary calculi; Z88.1 Allergy status to other antibiotic agents; Z88.3 Allergy status to other anti-infective agents; Z88.2 Allergy status to sulfonamides; Z88.8 Allergy status to other drugs, medicaments and biological substances; Z91.048 Other nonmedicinal substance allergy status; Z79.01 Long term (current) use of anticoagulants; Z79.899 Other long term (current) drug therapy; Z90.49 Acquired absence of other specified parts of digestive tract; Z90.710 Acquired absence of both cervix and uterus; Z68.44 Body mass index [BMI] 60.0-69.9, adult
CPT/HCPCS: 52353; 85610; 74420; 74018; C2625; C1769; J2250; J0330; J1580; J2710; J2405; J2001; J3010; J0290; J2370; J2704; Q9967

== ENCOUNTER 2018-04-30 11:44 | Inpatient (IN) | payer MEDICARE ==
[2018-04-30] MEDS ORDERED: SODIUM CHLORIDE 0.9% 1,000 ML IV STA (12:13)
[2018-04-30 12:31] LABS: Basophils % (A) 0 %; Eosinophils # (A) 0.2 k/uL (0-0.7); Eosinophils % (A) 2 %; HCT 40.1 % (34.0-46.0); HGB 13.3 gm/dL (11.4-16.0); Lymphocytes # (A) 1.3 k/uL (1.0-4.8); Lymphocytes % (A) 10 %; MCH 28.4 pg (25.0-35.0); MCHC 33.1 g/dL (31.0-37.0); MCV 85.8 fL (80.0-100.0); Mean Platelet Volume 7.7; Monocytes # (A) 0.4 k/uL (0-1.0); Monocytes % (A) 3 %; Neutrophils % (A) 83 %; Platelet Count 302 k/uL (150-450); RBC 4.67 m/uL (3.80-5.40); RDW 15.2 % (11.5-15.5); WBC 12.1 k/uL (3.8-10.6)
[2018-04-30 12:43] LABS: Albumin 4.2 g/dL (3.5-5.0); Calcium 9.8 mg/dL (8.4-10.2); Magnesium 1.4 mg/dL (1.6-2.3); Potassium 4.2 mmol/L (3.5-5.1); Total Bilirubin 1.7 mg/dL (0.2-1.3); Total Protein 6.8 g/dL (6.3-8.2)
[2018-04-30 12:52] LABS: INR 1.4 (<1.2); Partial Thromboplastin Time 24.3 sec (22.0-30.0); Prothrombin Time 12.9 sec (9.0-12.0)
[2018-04-30 12:57] LABS: Creatine Kinase 79 U/L (30-135)
[2018-04-30 13:11] LABS: Creatine Kinase MB 1.2 ng/mL (0.0-2.4); Troponin I <0.012 ng/mL (0.000-0.034)
--- NOTE | 2018-04-30 13:18 | ED ---
GI Bleed HPI - General Source: patient, RN notes reviewed Mode of arrival: wheelchair Limitations: physical limitation <Mina Casey - Last Filed: 04/30/18 14:45> <Jluis Thorne - Last Filed: 04/30/18 15:08> - General Chief complaint: GI Bleed Stated complaint: Blood in Stool Time Seen by Provider: 04/30/18 11:58 - History of Present Illness Initial comments: This is a 73-year-old female presents emergency Department chief complaint of rectal bleeding. Patient states symptoms started on Thursday and have happened daily progressively getting worse. She states that she is passing blood clots and bright red blood. She states she has no abdominal pain, cramping or rectal pain. She states she does take warfarin at home she states that she initially stopped it will restart taking it on Thursday after talking to the urologist. Patient states that she had lithotripsy approximately 10 days ago. Patient denies any hematuria or dysuria. Denies fever or chills. She has not had any recent colonoscopy Zorich EGDs. Patient denies any black tarry stools. Patient denies any recent abdominal surgeries. (Mina Casey) - Related Data Home Medications Medication Instructions Recorded Confirmed Labetalol [Trandate] 100 mg PO BID-W/MEALS 04/09/15 04/30/18 Thyroid,Pork [[place] Thyroid] 30 mg PO DAILY 04/09/15 04/30/18 Iodine Supplement 1 tab PO DAILY 11/12/15 04/30/18 Ascorbic Acid [Vitamin C] 500 mg PO DAILY 04/08/18 04/30/18 Cholecalciferol [Vitamin D3] 5,000 unit PO HS 04/08/18 04/30/18 Grape Seed Oil 1 cap PO BID 04/08/18 04/30/18 Magnessium 666mg 333 mg PO DAILY 04/08/18 04/30/18 Turmeric Root Extract [Turmeric] 500 mg PO HS 04/08/18 04/30/18 Ubiquinol 100 mg PO DAILY 04/08/18 04/30/18 Warfarin Sodium 10 mg PO HS 04/08/18 04/30/18 Warfarin [Coumadin] 2.5 mg PO TUTHSA 04/08/18 04/30/18 Beta Glucan 1 tab PO DAILY 04/15/18 04/30/18 Calcitriol 0.5 mcg PO DAILY 04/15/18 04/30/18 L.acidoph,Paracasei, B.lactis 1 each PO DAILY 04/15/18 04/30/18 [Probiotic] Melatonin 9 mg PO HS 04/15/18 04/30/18 Multivitamins, Thera [Multivitamin 1 tab PO DAILY 04/15/18 04/30/18 (formulary)] Allergies Allergy/AdvReac Type Severity Reaction Status Date / Time lisinopril Allergy Severe Abdominal Verified 04/30/18 12:27 Pain promethazine Allergy Severe Anaphylaxis Verified 04/30/18 12:27 Sulfa (Sulfonamide Allergy Severe SEVERE Verified 04/30/18 12:27 Antibiotics) ASTHMA ATTACK azithromycin Allergy Diarrhea Verified 04/30/18 12:27 levofloxacin Allergy Unknown Verified 04/30/18 12:27 amlodipine besylate AdvReac Severe Severe Verified 04/30/18 12:27 [From Norvasc] drop in blood pressure adhesive AdvReac Unknown BLISTERS Verified 04/30/18 12:27 diazepam [From Valium] AdvReac "Stabbing Verified 04/30/18 12:27 pain in brain" meperidine HCl [From Demerol] AdvReac Nausea & Verified 04/30/18 12:27 Vomiting Review of Systems ROS Other: All systems not noted in ROS Statement are negative. <Mina Casey - Last Filed: 04/30/18 14:45> ROS Other: All systems not noted in ROS Statement are negative. <Jluis Thorne - Last Filed: 04/30/18 15:08> ROS Statement: Those systems with pertinent positive or pertinent negative responses have been documented in the HPI. 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 kidney stones, and infection History of Any Multi-Drug Resistant Organisms: None Reported Past Surgical History: Appendectomy, Breast Surgery, Section, Cholecystectomy, Hysterectomy, Tonsillectomy Additional Past Surgical History / Comment(s): L BREAST BX, URETER STENT 03/2015 , L ureteroscopy calculus extraction, colonoscopy, skin cancer removal from forehead, C/Section x 1. Past Anesthesia/Blood Transfusion Reactions: No Reported Reaction Additional Past Anesthesia/Blood Transfusion Reaction / Comment(s): WOKE UP VOMITING DURING Past Psychological History: No Psychological Hx Reported Smoking Status: Never smoker Past Alcohol Use History: None Reported Past Drug Use History: None Reported - Past Family History Brother(s) Family Medical History: AFIB, Neurologic Disorder Additional Family Medical History / Comment(s): No sisters one son healthy no daughters Father Family Medical History: Diabetes Mellitus, Deep Vein Thrombosis (DVT), Hypertension Additional Family Medical History / Comment(s): blind/neuropathy secondary to DM. Father is . Mother Family Medical History: Dementia Additional Family Medical History / Comment(s): Mother at age 88yrs. <Mina Casey Last Filed: 04/30/18 14:45> General Exam Limitations: physical limitation General appearance: alert, in no apparent distress Head exam: Present: atraumatic, normocephalic, normal inspection Respiratory exam: Present: normal lung sounds bilaterally. Absent: respiratory distress, wheezes, rales, rhonchi, stridor Cardiovascular Exam: Present: regular rate, normal rhythm, normal heart sounds. Absent: systolic murmur, diastolic murmur, rubs, gallop, clicks GI/Abdominal exam: Present: soft, normal bowel sounds. Absent: distended, tenderness, guarding, rebound, rigid Rectal exam: Present: bloody stool (Patient had large bowel movement in the room which was bloody in nature, with blood clots) Skin exam: Present: warm, dry, intact, normal color. Absent: rash <Mina Casey Filed: 04/30/18 14:45> Vital Signs 04/30/18 04/30/18 11:52 14:06 Temperature 98.7 F 99.2 F Pulse Rate 87 85 Respiratory 18 20 Rate Blood Pressure 123/87 143/75 O2 Sat by Pulse 95 Oximetry Medical Decision Making - Lab Data Result diagrams: 04/30/18 12:19 04/30/18 12:19 <Mina Casey Filed: 04/30/18 14:45> - Lab Data Result diagrams: 04/30/18 12:19 04/30/18 12:19 <Jluis Thorne - Last Filed: 04/30/18 15:08> - Medical Decision Making 73-year-old female presents for rectal bleeding. Patient has noted rectal bleeding in emergency department. Patient has bilateral blood. Patient states that she's never had any like this in the past. Patient will be admitted to the hospital for repeat H&H and further evaluation. (Mina Casey) 73-year-old female with 4 days of rectal bleeding. She's had persistent bleeding with each bowel movement as well as blood clots. On exam patient has small amount of continuous bright red blood per rectum. She does have a remote history of diverticulosis, however she has not had a colonoscopy in approximately 30 years. She is on Coumadin however this is been held for the past several days secondary to bleeding. INR 1.4. Case discussed with Dr. Pratt who will accept admission. Patient will be placed in the ICU for close monitoring, gastroenterology and the line clearance foreman on consult. (Jluis Thorne) - Lab Data Lab Results 04/30/18 04/30/18 04/30/18 Range/Units 12:19 12:19 12:19 WBC 12.1 H (3.8-10.6) k/uL RBC 4.67 (3.80-5.40) m/uL Hgb 13.3 (11.4-16.0) gm/dL Hct 40.1 (34.0-46.0) % MCV 85.8 (80.0-100.0) fL MCH 28.4 (25.0-35.0) pg MCHC 33.1 (31.0-37.0) g/dL RDW 15.2 (11.5-15.5) % Plt Count 302 (150-450) k/uL Neutrophils % 83 % Lymphocytes % 10 % Monocytes % 3 % Eosinophils % 2 % Basophils % 0 % Neutrophils # 10.0 H (1.3-7.7) k/uL Lymphocytes # 1.3 (1.0-4.8) k/uL Monocytes # 0.4 (0-1.0) k/uL Eosinophils # 0.2 (0-0.7) k/uL Basophils # 0.0 (0-0.2) k/uL PT 12.9 H (9.0-12.0) sec INR 1.4 H (<1.2) APTT 24.3 (22.0-30.0) sec Sodium (137-145) mmol/L Potassium (3.5-5.1) mmol/L Chloride (98-107) mmol/L Carbon Dioxide (22-30) mmol/L Anion Gap mmol/L BUN (7-17) mg/dL Creatinine (0.52-1.04) mg/dL Est GFR (CKD-EPI)AfAm (>60 ml/min/1.73 sqM) Est GFR (CKD-EPI)NonAf (>60 ml/min/1.73 sqM) Glucose (74-99) mg/dL Calcium (8.4-10.2) mg/dL Magnesium (1.6-2.3) mg/dL Total Bilirubin (0.2-1.3) mg/dL AST (14-36) U/L ALT (9-52) U/L Alkaline Phosphatase (38-126) U/L Total Creatine Kinase 79 (30-135) U/L CK-MB (CK-2) 1.2 (0.0-2.4) ng/mL CK-MB (CK-2) Rel Index 1.5 Troponin I <0.012 (0.000-0.034) ng/mL Total Protein (6.3-8.2) g/dL Albumin (3.5-5.0) g/dL 04/30/18 Range/Units 12:19 WBC (3.8-10.6) k/uL RBC (3.80-5.40) m/uL Hgb (11.4-16.0) gm/dL Hct (34.0-46.0) % MCV (80.0-100.0) fL MCH (25.0-35.0) pg MCHC (31.0-37.0) g/dL RDW (11.5-15.5) % Plt Count (150-450) k/uL Neutrophils % % Lymphocytes % % Monocytes % % Eosinophils % % Basophils % % Neutrophils # (1.3-7.7) k/uL Lymphocytes # (1.0-4.8) k/uL Monocytes # (0-1.0) k/uL Eosinophils # (0-0.7) k/uL Basophils # (0-0.2) k/uL PT (9.0-12.0) sec INR (<1.2) APTT (22.0-30.0) sec Sodium 141 (137-145) mmol/L Potassium 4.2 (3.5-5.1) mmol/L Chloride 99 (98-107) mmol/L Carbon Dioxide 28 (22-30) mmol/L Anion Gap 14 mmol/L BUN 18 H (7-17) mg/dL Creatinine 1.02 (0.52-1.04) mg/dL Est GFR (CKD-EPI)AfAm 64 (>60 ml/min/1.73 sqM) Est GFR (CKD-EPI)NonAf 56 (>60 ml/min/1.73 sqM) Glucose 116 H (74-99) mg/dL Calcium 9.8 (8.4-10.2) mg/dL Magnesium 1.4 L (1.6-2.3) mg/dL Total Bilirubin 1.7 H (0.2-1.3) mg/dL AST 31 (14-36) U/L ALT 40 (9-52) U/L Alkaline Phosphatase 67 (38-126) U/L Total Creatine Kinase (30-135) U/L CK-MB (CK-2) (0.0-2.4) ng/mL CK-MB (CK-2) Rel Index Troponin I (0.000-0.034) ng/mL Total Protein 6.8 (6.3-8.2) g/dL Albumin 4.2 (3.5-5.0) g/dL Disposition <Mina Casey - Last Filed: 04/30/18 14:45> <Jluis Thorne - Last Filed: 04/30/18 15:08> Clinical Impression: GI bleeding Disposition: ADMITTED IP TO THIS [facility] Condition: Stable Referrals: Too Espinosa DO [Primary Care Provider] - 1-2 days
[2018-04-30] MEDS: PANTOPRAZOLE 40 MG/10 ML VIAL IV SCH (15:09)
[2018-04-30] MEDS: SODIUM CHLORIDE 0.9% 1,000 ML IV SCH (15:09)
[2018-04-30] MEDS ORDERED: PHYTONADIONE ORAL 5 MG/5 ML ORAL.SYRG PO STA (15:10)
[2018-04-30 15:25] LABS: Basophils % (A) 0 %; Eosinophils # (A) 0.2 k/uL (0-0.7); Eosinophils % (A) 2 %; HGB 12.4 gm/dL (11.4-16.0); Lymphocytes # (A) 1.3 k/uL (1.0-4.8); Lymphocytes % (A) 12 %; MCHC 32.6 g/dL (31.0-37.0); MCV 85.9 fL (80.0-100.0); Mean Platelet Volume 7.9; Monocytes # (A) 0.4 k/uL (0-1.0); Monocytes % (A) 4 %; Neutrophils # (A) 8.9 k/uL (1.3-7.7); Neutrophils % (A) 81 %; Platelet Count 263 k/uL (150-450); RBC 4.43 m/uL (3.80-5.40); RDW 15.2 % (11.5-15.5); WBC 10.9 k/uL (3.8-10.6)
[2018-04-30] MEDS ORDERED: Magnesium Replacement Protocol 1 EACH MISC MISCELLANE PRN (16:12)
[2018-04-30 16:20] LABS: Glucose,Whole Blood 106 mg/dL (75-99)
[2018-04-30 16:51] VITALS: BMI 44.9
[2018-04-30] MEDS: MAGNESIUM SULFATE-D5W PMX 1 GM in DEXTROSE/WATER 1 100ML.BAG IVPB SCH ×3 (17:21→20:07)
[2018-04-30] MEDS: MELATONIN 3 MG TABLET PO SCH (20:31)
[2018-04-30] MEDS: LABETALOL 100 MG TAB PO SCH (20:31)
[2018-04-30 21:13] LABS: Basophils % (A) 0 %; Eosinophils # (A) 0.1 k/uL (0-0.7); Eosinophils % (A) 1 %; HCT 34.4 % (34.0-46.0); HGB 11.1 gm/dL (11.4-16.0); Lymphocytes # (A) 1.7 k/uL (1.0-4.8); Lymphocytes % (A) 17 %; MCH 28.2 pg (25.0-35.0); MCHC 32.4 g/dL (31.0-37.0); MCV 87.2 fL (80.0-100.0); Mean Platelet Volume 7.8; Monocytes # (A) 0.6 k/uL (0-1.0); Monocytes % (A) 6 %; Neutrophils # (A) 7.4 k/uL (1.3-7.7); Neutrophils % (A) 75 %; Platelet Count 238 k/uL (150-450); RBC 3.95 m/uL (3.80-5.40); RDW 15.3 % (11.5-15.5); WBC 9.9 k/uL (3.8-10.6)
[2018-05-01 04:50] LABS: Basophils % (A) 1 %; Eosinophils # (A) 0.2 k/uL (0-0.7); Eosinophils % (A) 2 %; HCT 32.7 % (34.0-46.0); HGB 10.3 gm/dL (11.4-16.0); Lymphocytes # (A) 1.4 k/uL (1.0-4.8); Lymphocytes % (A) 19 %; MCH 27.7 pg (25.0-35.0); MCHC 31.6 g/dL (31.0-37.0); MCV 87.5 fL (80.0-100.0); Mean Platelet Volume 7.8; Monocytes # (A) 0.6 k/uL (0-1.0); Monocytes % (A) 7 %; Neutrophils # (A) 5.5 k/uL (1.3-7.7); Neutrophils % (A) 70 %; Platelet Count 217 k/uL (150-450); RBC 3.73 m/uL (3.80-5.40); RDW 15.3 % (11.5-15.5); WBC 7.8 k/uL (3.8-10.6)
[2018-05-01] MEDS: SODIUM CHLORIDE 0.9% 1,000 ML IV SCH ×2 (05:18→17:37)
[2018-05-01 06:05] LABS: Magnesium 1.9 mg/dL (1.6-2.3)
[2018-05-01] MEDS: MAGNESIUM SULFATE-D5W PMX 1 GM in DEXTROSE/WATER 1 100ML.BAG IVPB SCH ×2 (06:51→08:59)
[2018-05-01] MEDS: THYROID, PORK 30 MG TAB PO SCH (09:00)
[2018-05-01] MEDS: LABETALOL 100 MG TAB PO SCH ×2 (09:00→20:26)
--- NOTE | 2018-05-01 09:30 | P.CNPUL ---
History of Present Illness Consult date: 04/30/18 Chief complaint: Bright red blood per rectum History of present illness: This is a very pleasant 73-year-old here patient was hospitalized for an acute GI bleed. The patient was in the hospital recently approximately 3 weeks ago for complications of nephrolithiasis and acute pyelonephritis. As such the patient is known to be. She is known to have chronic atrial fibrillation and she has been maintained on anticoagulation with warfarin. The patient came into the emergency department with rectal bleeding. The patient started symptoms around 5 days ago and she progressive got worse and she started passing blood clots and bright red blood per rectum. She denied having any abdominal pain. No cramping. No rectal pain. No hematemesis. She was on Coumadin and she initially stop the treatment and restarted taking it back on Thursday which is around 2 days ago. The patient came in to the emergency department and she was found to be hemodynamically stable with a blood pressure 123/87. No significant tachycardia. Hemoglobin was 13.3 and dropped down to 12.4 on subsequent follow-up. Correlation profile showed an INR of 1.4 with a PT of 12.9. The renal function was stable with a creatinine of 1.02. The patient was given a total of 5 mg of vitamin K. No chronic liver disease. No intake of any nonsteroidal inflammatory medication. No peptic ulcer disease. The patient does not take any antiplatelet agents. She is on Coumadin. No alcoholism. Note that on 04/10/2018, the patient came in for acute pyelonephritis. The patient was seen by urology. The patient had cystoscopy and insertion of a right ureteral stent. The patient was also treated with antibiotics. Her urine culture was enterococcus species positive and she has had also previous urine checked infection with E. coli. The patient was stabilized. The renal function is also stabilized and the renal function normalizes and the patient was discharged home. She was discharged home on Keflex and nitrofurantoin. Her renal function remains stable. The patient is morbidly obese. She has a BMI 56.5. She also has hypothyroidism , nephrolithiasis, chronic atrial fibrillation maintained on warfarin, hyperlipidemia, hypertension, osteoarthritis, chronic lymphedema in lower extremities bilaterally. Note that she was quite septic related to a urine checked infection and was treated appropriately back in 04/10/2018 Review of Systems All systems: negative Constitutional: Denies chills, Denies fever Eyes: denies blurred vision, denies pain Ears, nose, mouth and throat: Denies headache, Denies sore throat Cardiovascular: Denies chest pain, Denies shortness of breath Respiratory: Reports as per HPI, Reports dyspnea, Reports home oxygen, Denies cough, difficulty with mobility and gait Gastrointestinal: Denies abdominal pain, Denies diarrhea, Denies nausea, Denies vomiting. The patient is having bright red blood per rectum which is of a new onset. Genitourinary: Denies dysuria, Denies hematuria Musculoskeletal: Denies myalgias Integumentary: Denies pruritus, Denies rash Neurological: Denies numbness, Denies weakness Psychiatric: Denies anxiety, Denies depression Endocrine: Denies fatigue, Denies weight change Hematologic/Lymphatic: Reports lymphedema and chronic swelling of lower extremities bilaterally. Past Medical History Past Medical History: Atrial Fibrillation, Asthma, Cancer, Diabetes Mellitus, Hyperlipidemia, Hypertension, Osteoarthritis (OA), Renal Disease, Thyroid Disorder Additional Past Medical History / Comment(s): Morbid obesity, chronic bronchial asthma, chronic atrial fibrillation, diabetes mellitus, hypertension, hyperlipidemia, hypothyroidism, lymphedema of the lower extremities, varicose veins involving lower extremities, recent sepsis secondary to enterococcal urinary tract infection, history of nephrolithiasis status post insertion of ureteral stents bilaterally, history of right pyelonephritis, history of acute kidney injury from which the patient recovers, the patient has difficulty with mobility and she moves around out of his scooter and she can only walk short distances, skin cancer that has been removed, chronic hypoxic respiratory failure maintained on oxygen. History of Any Multi-Drug Resistant Organisms: None Reported Past Surgical History: Appendectomy, Breast Surgery, Section, Cholecystectomy, Hysterectomy, Tonsillectomy Additional Past Surgical History / Comment(s): Left breast biopsy, ureteral stents bilaterally the one done on the left was in March 2016 the one on the right was from March 2018, left ureteral calculus extraction through a urethroscopy, colonoscopy, skin cancer resection from the forehead, , cholecystectomy, appendectomy, hysterectomy, tonsillectomy Past Anesthesia/Blood Transfusion Reactions: No Reported Reaction Additional Past Anesthesia/Blood Transfusion Reaction / Comment(s): WOKE UP VOMITING DURING Past Psychological History: No Psychological Hx Reported Smoking Status: Never smoker Past Alcohol Use History: None Reported Past Drug Use History: None Reported - Past Family History Brother(s) Family Medical History: AFIB, Neurologic Disorder Additional Family Medical History / Comment(s): No sisters one son healthy no daughters Father Family Medical History: Diabetes Mellitus, Deep Vein Thrombosis (DVT), Hypertension Additional Family Medical History / Comment(s): blind/neuropathy secondary to DM. Father is . Mother Family Medical History: Dementia Additional Family Medical History / Comment(s): Mother at age 88yrs. Medications and Allergies Home Medications Medication Instructions Recorded Confirmed Type Labetalol [Trandate] 100 mg PO BID-W/MEALS 04/09/15 04/30/18 History Thyroid,Pork [Mission Thyroid] 30 mg PO DAILY 04/09/15 04/30/18 History Iodine Supplement 1 tab PO DAILY 11/12/15 04/30/18 History Ascorbic Acid [Vitamin C] 500 mg PO DAILY 04/08/18 04/30/18 History Cholecalciferol [Vitamin D3] 5,000 unit PO HS 04/08/18 04/30/18 History Grape Seed Oil 1 cap PO BID 04/08/18 04/30/18 History Magnessium 666mg 333 mg PO DAILY 04/08/18 04/30/18 History Turmeric Root Extract [Turmeric] 500 mg PO HS 04/08/18 04/30/18 History Ubiquinol 100 mg PO DAILY 04/08/18 04/30/18 History Warfarin Sodium 10 mg PO HS 04/08/18 04/30/18 History Warfarin [Coumadin] 2.5 mg PO TUTHSA 04/08/18 04/30/18 History Beta Glucan 1 tab PO DAILY 04/15/18 04/30/18 History Calcitriol 0.5 mcg PO DAILY 04/15/18 04/30/18 History L.acidoph,Paracasei, B.lactis 1 each PO DAILY 04/15/18 04/30/18 History [Probiotic] Melatonin 9 mg PO HS 04/15/18 04/30/18 History Multivitamins, Thera [Multivitamin 1 tab PO DAILY 04/15/18 04/30/18 History (formulary)] Allergies Allergy/AdvReac Type Severity Reaction Status Date / Time lisinopril Allergy Severe Abdominal Verified 04/30/18 12:27 Pain promethazine Allergy Severe Anaphylaxis Verified 04/30/18 12:27 Sulfa (Sulfonamide Allergy Severe SEVERE Verified 04/30/18 12:27 Antibiotics) ASTHMA ATTACK azithromycin Allergy Diarrhea Verified 04/30/18 12:27 levofloxacin Allergy Unknown Verified 04/30/18 12:27 amlodipine besylate AdvReac Severe Severe Verified 04/30/18 12:27 [From Norvasc] drop in blood pressure adhesive AdvReac Unknown BLISTERS Verified 04/30/18 12:27 diazepam [From Valium] AdvReac "Stabbing Verified 04/30/18 12:27 pain in brain" meperidine HCl [From Demerol] AdvReac Nausea & Verified 04/30/18 12:27 Vomiting Physical Exam Vitals: Vital Signs Temp Pulse Resp BP Pulse Ox 04/30/18 16:10 98 F 116 H 14 153/96 96 04/30/18 16:08 96 14 98 04/30/18 15:34 98.8 F 107 H 20 146/80 94 L 04/30/18 14:06 99.2 F 85 20 143/75 04/30/18 11:52 98.7 F 87 18 123/87 95 Intake and Output 04/30/18 04/30/18 04/30/18 06:59 14:59 22:59 Intake Total 75 Balance 75 Intake: IV 75 Sodium Chloride 0.9% 1, 75 000 ml @ 75 mls/hr IV . [id number] [facility] Rx#:[id number] Other: # Voids 1 # Bowel Movements 1 Weight 163.747 kg - Constitutional General appearance: morbidly obese, no acute distress - EENT Eyes: EOMI, PERRLA, normal appearance ENT: NA/AT, normal oropharynx Ears: bilateral: normal - Neck Neck: no lymphadenopathy, normal ROM Carotids: bilateral: upstroke normal Thyroid: bilateral: normal size - Respiratory Respiratory: bilateral: CTA, diminished (At the bases) - Cardiovascular Rhythm: regular Heart sounds: normal: S1, S2 ankle Peripheral Edema: bilateral: Other (Chronic lymphedema of bilateral lower extremities) dorsalis pedis Peripheral Pulses: bilateral: Normal - Gastrointestinal General gastrointestinal: no organomegaly, soft, no tenderness - Integumentary Integumentary: normal turgor - Neurologic Neurologic: CNII-XII intact - Musculoskeletal Musculoskeletal: gait normal, strength equal bilaterally - Psychiatric Psychiatric: A&O x's 3, appropriate affect, intact judgment & insight Results - Laboratory Findings CBC and BMP: 05/01/18 04:34 05/01/18 04:34 PT/INR, D-dimer PT 12.9 sec (9.0-12.0) H 04/30/18 12:19 INR 1.4 (<1.2) H 04/30/18 12:19 Abnormal lab findings: Abnormal Labs 04/30/18 04/30/18 04/30/18 12:19 12:19 12:19 WBC 12.1 H Neutrophils # 10.0 H PT 12.9 H INR 1.4 H BUN 18 H Glucose 116 H Magnesium 1.4 L Total Bilirubin 1.7 H 04/30/18 15:08 WBC 10.9 H Neutrophils # 8.9 H PT INR BUN Glucose Magnesium Total Bilirubin Assessment and Plan Plan: Assessment 1 acute GI bleeding like a lower GI source. The patient was on anticoagulation and she presented with an INR of 1.4 and the Coumadin is on hold and the patient was given family grams of vitamin K. Currently hemodynamically stable. 2 recent hospitalization for enterococcal urinary tract infection and sepsis, recovered 3 recent hospitalization for right hydronephrosis and pyelonephritis requiring cystoscopy and right ureteral stent insertion 4 morbid obesity with a BMI of 56 5 chronic atrial fibrillation 6 hypothyroidism 7 history of left sided nephrolithiasis requiring a ureteral stent placement and removal 8 chronic lymphedema involving lower extremity is bilaterally 9 hypertension 10 hyperlipidemia 11 chronic hypoxic respiratory failure and the patient wears oxygen at 2 L/m nasal cannula at all times 12 skin cancer, resected 13 chronic asthma mild intermittent in nature Plan The patient will be monitored in the intensive care unit. Continue fluids. Monitor hemoglobin. Stop warfarin. Patient was reversed and the patient was given vitamin K. Continue IV fluids with normal state rate of 75 mL an hour. Consult gastroenterology. IV Protonix. We'll continue to follow.
--- NOTE | 2018-05-01 09:47 | CONS ---
CONSULTATION DATE OF DICTATION: May 01, 2018. REASON FOR CONSULTATION: Acute lower GI bleed. HISTORY OF PRESENT ILLNESS: The patient is a 73-year-old pleasant white female who was admitted to the hospital with multiple episodes of maroon colored stools for the last 4 days duration. The patient recently underwent lithotripsy about 10 days ago and did well. She has history of atrial fibrillation and has been on Coumadin which she has stopped for 6 days prior to the lithotripsy. However, the following day after the 3rd lithotripsy started taking the Coumadin and 4 days later she started having burgundy colored stools. Initially, they were 3 or 4 a day from Thursday onwards, but on she had many more bowel movements with dark red clots. She became concerned, came to the emergency room and subsequently admitted to the ICU for acute lower GI bleed. She never had these symptoms in the past. Her last colonoscopy was 30 years ago. Presently she denies any abdominal pain. No fever, chills, night sweats. No nausea, vomiting. No prior history of GI bleeds. No history of peptic ulcer disease or recent NSAID use. She has been off the Coumadin for 5 days now. Last INR was 1.4. She dropped hemoglobin from 13-10.5 g/dL. PAST MEDICAL HISTORY: Significant for hypertension, hypothyroidism, atrial fibrillation. MEDICATIONS: At home include labetalol, thyroid, iodine, vitamin C, vitamin D3, Coumadin, probiotics, melatonin, multivitamin. ALLERGIES: ALLERGIES TO LISINOPRIL, PROMETHAZINE, SULFA, AZITHROMYCIN, LEVOFLOXACIN, NORVASC, DIAZEPAM, DEMEROL. PAST SURGICAL HISTORY: Appendectomy, breast surgery, , cholecystectomy, hysterectomy, tonsillectomy, lithotripsy recently, colonoscopy 30 years ago. FAMILY HISTORY: Brother had atrial fibrillation. Father had DVT and hypertension. Mother has dementia. SOCIAL HISTORY: No smoking. No alcohol use. REVIEW OF SYSTEMS: Cardiopulmonary: No chest pain, shortness of breath. Genitourinary: No dysuria, hematuria. Musculoskeletal: Unremarkable. SKIN: Unremarkable. Endocrine: Unremarkable. Neurology: Unremarkable. ENT vision unremarkable. Constitutional: No recent weight loss. No fever, chills, night sweats. PHYSICAL EXAMINATION: She appears comfortable in no apparent distress. Vital signs are stable. Blood pressure 129/71, pulse rate 68, temperature 98.3. HEENT examination unremarkable. Conjunctivae pink. Sclerae anicteric. Oral cavity no lesions. Neck: No JVD or lymph node enlargement. Chest was clear to auscultation. HEART: Regular rate and rhythm. ABDOMEN: Soft. Bowel sounds are positive. No organomegaly. Extremities: No pedal edema. Skin no rashes. NEUROLOGIC: Alert and oriented x3. No focal deficits. LABS: Done at the time of admission to the hospital: WBC 12.1, hemoglobin 13.3. Today hemoglobin is 10.3 g/dL. BUN 18, creatinine 1.10. INR is 1.4. IMPRESSION: 1. Acute lower gastrointestinal bleed for the last 3-4 days duration, most likely diverticular in nature. She did not have any further bleeding for the last 12 hours duration. Hemoglobin dropped from 13-10 g/dL. Her last colonoscopy was more than 30 years ago. The patient clinically hemodynamically stable. 2. Kidney stones status post lithotripsy 10 days ago. 3. History of atrial fibrillation on Coumadin which has been on hold for the last 5 days. Last INR is 1.4. RECOMMENDATIONS: 1. Continue with a clear liquid diet. 2. CBC every 12 hours. 3. Proceed with colonoscopy tomorrow. I discussed with the patient, risks, benefits and complications and she is agreeable to it. Thank you for this consultation. MMODL / IJN: [id number] /
--- NOTE | 2018-05-01 11:36 | P.PN ---
Subjective Progress Note Date: 05/01/18 This is a very pleasant 73-year-old here patient was hospitalized for an acute GI bleed. The patient was in the hospital recently approximately 3 weeks ago for complications of nephrolithiasis and acute pyelonephritis. As such the patient is known to be. She is known to have chronic atrial fibrillation and she has been maintained on anticoagulation with warfarin. The patient came into the emergency department with rectal bleeding. The patient started symptoms around 5 days ago and she progressive got worse and she started passing blood clots and bright red blood per rectum. She denied having any abdominal pain. No cramping. No rectal pain. No hematemesis. She was on Coumadin and she initially stop the treatment and restarted taking it back on Thursday which is around 2 days ago. The patient came in to the emergency department and she was found to be hemodynamically stable with a blood pressure 123/87. No significant tachycardia. Hemoglobin was 13.3 and dropped down to 12.4 on subsequent follow-up. Correlation profile showed an INR of 1.4 with a PT of 12.9. The renal function was stable with a creatinine of 1.02. The patient was given a total of 5 mg of vitamin K. No chronic liver disease. No intake of any nonsteroidal inflammatory medication. No peptic ulcer disease. The patient does not take any antiplatelet agents. She is on Coumadin. No alcoholism. Note that on 04/10/2018, the patient came in for acute pyelonephritis. The patient was seen by urology. The patient had cystoscopy and insertion of a right ureteral stent. The patient was also treated with antibiotics. Her urine culture was enterococcus species positive and she has had also previous urine checked infection with E. coli. The patient was stabilized. The renal function is also stabilized and the renal function normalizes and the patient was discharged home. She was discharged home on Keflex and nitrofurantoin. Her renal function remains stable. The patient is morbidly obese. She has a BMI 56.5. She also has hypothyroidism , nephrolithiasis, chronic atrial fibrillation maintained on warfarin, hyperlipidemia, hypertension, osteoarthritis, chronic lymphedema in lower extremities bilaterally. Note that she was quite septic related to a urine checked infection and was treated appropriately back in 04/10/2018 On 05/01/2018, the patient is stable and she has not had any further episodes of bleeding. She is tolerating clear liquid diet. She is going to have a prep for tomorrow, and bowel prep for colonoscopy. No nausea. No vomiting. No abdominal pain. No hemodynamic instability. Hemoglobin remains above 10. No further episodes of bleeding since she arrived to the intensive care unit. Objective - Vital Signs Vital signs: Vital Signs Temp 98 F 05/01/18 08:00 Pulse 72 05/01/18 11:00 Resp 21 05/01/18 11:00 BP 122/64 05/01/18 11:00 Pulse Ox 98 05/01/18 11:00 Intake & Output 04/30/18 05/01/18 05/01/18 18:59 06:59 18:59 Intake Total 250 1025 500 Output Total 0 Balance 250 1025 500 Weight 130.1 kg 162 kg Intake: IV 250 1025 500 Magnesium Sulfate-D5w Pmx 100 200 200 1 gm In Dextrose/Water 1 100ml.bag @ 100 mls/hr IVPB Q1H [facility] Rx#: [id number] Sodium Chloride 0.9% 1, 150 825 300 000 ml @ 75 mls/hr IV . [id number] [facility] Rx#:[id number] Output: Urine 0 Other: Voiding Method Bedside Commode Bedside Commode Bedside Commode # Voids 1 1 1 # Bowel Movements 1 1 - Exam - Constitutional General appearance: morbidly obese, no acute distress - EENT Eyes: EOMI, PERRLA, normal appearance ENT: NA/AT, normal oropharynx Ears: bilateral: normal - Neck Neck: no lymphadenopathy, normal ROM Carotids: bilateral: upstroke normal Thyroid: bilateral: normal size - Respiratory Respiratory: bilateral: CTA, diminished (At the bases) - Cardiovascular Rhythm: regular Heart sounds: normal: S1, S2 ankle Peripheral Edema: bilateral: Other (Chronic lymphedema of bilateral lower extremities) dorsalis pedis Peripheral Pulses: bilateral: Normal - Gastrointestinal General gastrointestinal: no organomegaly, soft, no tenderness - Integumentary Integumentary: normal turgor - Neurologic Neurologic: CNII-XII intact - Musculoskeletal Musculoskeletal: gait normal, strength equal bilaterally - Psychiatric Psychiatric: A&O x's 3, appropriate affect, intact judgment & insight - Labs CBC & Chem 7: 05/01/18 04:34 05/01/18 04:34 Labs: Abnormal Lab Results - Last 24 Hours (Table) 04/30/18 04/30/18 04/30/18 Range/Units 12:19 12:19 12:19 WBC 12.1 H (3.8-10.6) k/uL RBC (3.80-5.40) m/uL Hgb (11.4-16.0) gm/dL Hct (34.0-46.0) % Neutrophils # 10.0 H (1.3-7.7) k/uL PT 12.9 H (9.0-12.0) sec INR 1.4 H (<1.2) BUN 18 H (7-17) mg/dL Creatinine (0.52-1.04) mg/dL Glucose 116 H (74-99) mg/dL POC Glucose (mg/dL) (75-99) mg/dL Magnesium 1.4 L (1.6-2.3) mg/dL Total Bilirubin 1.7 H (0.2-1.3) mg/dL 04/30/18 04/30/18 04/30/18 Range/Units 15:08 16:07 20:47 WBC 10.9 H (3.8-10.6) k/uL RBC (3.80-5.40) m/uL Hgb 11.1 L (11.4-16.0) gm/dL Hct (34.0-46.0) % Neutrophils # 8.9 H (1.3-7.7) k/uL PT (9.0-12.0) sec INR (<1.2) BUN (7-17) mg/dL Creatinine (0.52-1.04) mg/dL Glucose (74-99) mg/dL POC Glucose (mg/dL) 106 H (75-99) mg/dL Magnesium (1.6-2.3) mg/dL Total Bilirubin (0.2-1.3) mg/dL 05/01/18 05/01/18 Range/Units 04:34 04:34 WBC (3.8-10.6) k/uL RBC 3.73 L (3.80-5.40) m/uL Hgb 10.3 L (11.4-16.0) gm/dL Hct 32.7 L (34.0-46.0) % Neutrophils # (1.3-7.7) k/uL PT (9.0-12.0) sec INR (<1.2) BUN 18 H (7-17) mg/dL Creatinine 1.10 H (0.52-1.04) mg/dL Glucose 110 H (74-99) mg/dL POC Glucose (mg/dL) (75-99) mg/dL Magnesium (1.6-2.3) mg/dL Total Bilirubin (0.2-1.3) mg/dL Microbiology - Last 24 Hours (Table) 04/30/18 12:34 Stool Culture - Preliminary Stool Assessment and Plan Plan: Assessment 1 acute GI bleeding like a lower GI source. The patient was on anticoagulation and she presented with an INR of 1.4 and the Coumadin is on hold and the patient was given family grams of vitamin K. Currently hemodynamically stable. 2 recent hospitalization for enterococcal urinary tract infection and sepsis, recovered 3 recent hospitalization for right hydronephrosis and pyelonephritis requiring cystoscopy and right ureteral stent insertion 4 morbid obesity with a BMI of 56 5 chronic atrial fibrillation 6 hypothyroidism 7 history of left sided nephrolithiasis requiring a ureteral stent placement and removal 8 chronic lymphedema involving lower extremity is bilaterally 9 hypertension 10 hyperlipidemia 11 chronic hypoxic respiratory failure and the patient wears oxygen at 2 L/m nasal cannula at all times 12 skin cancer, resected 13 chronic asthma mild intermittent in nature Plan On today's evaluation, there is no further episodes of bleeding. The patient's hemoglobin is at 10.3 and is currently stable. The patient will have a bowel prep and to be followed by colonoscopy tomorrow. She can be stepped down to a medical surgical floor for further monitoring. We'll continue to follow.
[2018-05-01] MEDS ORDERED: PEG 3350-NA SULF,BICARB,CL/KCL 4,000 ML BOTTLE PO ONE (16:00)
--- NOTE | 2018-05-01 18:16 | P.HPIM ---
History of Present Illness H&P Date: 05/01/18 this is a pleasant 73-year-old lady patient of Dr. Jesús Castro, Dr Chi. She has underlying history of COPD chronic hypoxemia on O2 nasal cannula 22/06, lymphedema atrial fibrillation diabetes mellitus type 2, hypertensio chronic lymphedema n impaired balance on a walker scooter for Community ambulation admitted to emergency room secondary to hematochezia breaking discussed stools of 4 days' duration, while on anticoagulation using Coumadin. She recently was admitted secondary to Acute Pyelonephritis with bilateral renal stones, obstructing left proximal ureteral stone, producing moderate right hydronephrosis status post cystoscopy with right ureteral stent insertion for which she completed Keflex on 04/24/2018 for urinary tract infection/ Pyelonephritis. Patient was subsequently admitted emergency and sent to ICU for acute lower GI bleed presenting with the burgundy stools consult was made with Dr. Chantel Garrison patient denies any NSAID use, no history of abnormal ulcer or bleed, patient would undergo colonoscopy tomorrow May 02. Last colonoscopy 30years ago Review of Systems All systems: negative Constitutional: Reports as per HPI Ears, nose, mouth and throat: Reports as per HPI, Denies ant. neck pain, Denies bleeding gums, Denies dental pain, Denies dysphagia, Denies epistaxis, Denies headache, Denies hoarseness, Denies mouth pain, Denies nasal congestion, Denies nasal discharge, Denies neck fullness/pressure, Denies neck lump, Denies nose pain, Denies odynophagia, Denies post-nasal drip, Denies sinus pain, Denies sinus pressure, Denies swelling in mouth, Denies swelling in throat, Denies sore throat, Denies vertigo, Denies voice changes Cardiovascular: Reports as per HPI, Denies chest pain, Denies claudication, Denies decreased exercise tolerance, Denies dyspnea on exertion, Denies edema, Denies high blood pressure, Denies irregular heart beat, Denies leg edema, Denies lightheadedness, Denies orthopnea, Denies palpitations, Denies paroxysmal nocturnal dyspnea, Denies phlebitis, Denies rapid heart beat, Denies shortness of breath, Denies syncope Respiratory: Reports as per HPI, Denies congestion, Denies cough, Denies cough with sputum, Denies dyspnea, Denies excessive sputum, Denies hemoptysis, Denies home oxygen, Denies pain, Denies pain on inspiration, Denies pleurisy, Denies respiratory infections, Denies sleep apnea, Denies snoring, Denies wheezing Gastrointestinal: Reports as per HPI, Reports hematochezia, Denies abdominal pain, Denies belching, Denies bloating, Denies BRBPR, Denies change in bowel habits, Denies coffee ground emesis, Denies constipation, Denies diarrhea, Denies dyspepsia, Denies early satiety, Denies excessive gas, Denies heartburn, Denies hematemesis, Denies indigestion, Denies jaundice, Denies lactose intolerance, Denies loss of appetite, Denies melena, Denies nausea, Denies vomiting Genitourinary: Reports as per HPI, Denies abnormal vaginal bleeding, Denies decreased libido, Denies difficulty conceiving, Denies difficulty voiding, Denies dysmenorrhea, Denies dyspareunia, Denies dysuria, Denies flank pain, Denies genital sores, Denies hematuria, Denies hot flashes, Denies incomplete emptying, Denies kidney stones, Denies menorrhagia, Denies mixed incontinence, Denies nocturia, Denies pelvic pain, Denies post void dribbling, Denies , Denies prolapse symptoms, Denies stress incontinence, Denies urge incontinence , Denies urgency, Denies urinary frequency, Denies vaginal discharge, Denies vaginal dryness, Denies vaginal itching, Denies vaginal odor Menstruation: Reports as per HPI, Reports postmenopausal Musculoskeletal: Reports as per HPI Integumentary: Reports as per HPI Neurological: Reports as per HPI, Denies aphasia, Denies ataxia, Denies balance difficulties, Denies burning pain, Denies change in mentation, Denies change in smell/taste, Denies change in speech, Denies confusion, Denies convulsions, Denies double vision, Denies gait dysfunction, Denies head injury, Denies headaches, Denies hearing difficulties, Denies lack of coordination, Denies loss of vision, Denies memory loss, Denies migraines, Denies motor disturbance, Denies numbness, Denies paralysis, Denies paresthesias, Denies seizures, Denies sensory deficit, Denies spasticity, Denies syncope, Denies tic, Denies tingling , Denies transient paralysis, Denies tremors, Denies vertigo, Denies weakness, Denies visual changes Psychiatric: Reports as per HPI, Denies anhedonia, Denies anxiety, Denies anxiety attacks, Denies change in appetite, Denies change in libido, Denies change in sleep habits, Denies confusion, Denies depression, Denies difficulty concentrating, Denies disorientation, Denies hallucinations, Denies hopelessness , Denies hypersomnia, Denies insomnia, Denies irritability, Denies memory loss, Denies mood swings, Denies paranoia, Denies sadness/tearfulness, Denies sleep disturbances, Denies suicidal ideation Endocrine: Reports as per HPI, Denies cold intolerance, Denies deepening of the voice, Denies excessive sweating, Denies excessive thirst, Denies fatigue, Denies flushing, Denies heat intolerance, Denies high blood sugars, Denies increase in ring/shoe/hat size, Denies low blood sugars, Denies nocturia, Denies palpitations, Denies polydipsia, Denies polyphagia, Denies polyuria, Denies proptosis, Denies recent glucocorticoid use, Denies thyroid mass, Denies weight change Hematologic/Lymphatic: Reports as per HPI, Denies easy bleeding, Denies easy bruising, Denies lymphadenopathy, Denies lymphedema, Denies thrombophilia Allergic/Immunologic: Reports as per HPI, Denies allergic rhinitis, Denies anaphylaxis, Denies angioedema, Denies gluten intolerance, Denies persistent infections, Denies seasonal allergies, Denies urticaria, Denies wheezing Past Medical History Past Medical History: Atrial Fibrillation, Asthma, Cancer, Diabetes Mellitus, Hyperlipidemia, Hypertension, Osteoarthritis (OA), Renal Disease, Thyroid Disorder Additional Past Medical History / Comment(s): Morbid obesity, chronic bronchial asthma, chronic atrial fibrillation, diabetes mellitus, hypertension, hyperlipidemia, hypothyroidism, lymphedema of the lower extremities, varicose veins involving lower extremities, recent sepsis secondary to enterococcal urinary tract infection, history of nephrolithiasis status post insertion of ureteral stents bilaterally, history of right pyelonephritis, history of acute kidney injury from which the patient recovers, the patient has difficulty with mobility and she moves around out of his scooter and she can only walk short distances, skin cancer that has been removed, chronic hypoxic respiratory failure maintained on oxygen. History of Any Multi-Drug Resistant Organisms: None Reported Past Surgical History: Appendectomy, Breast Surgery, Section, Cholecystectomy, Hysterectomy, Tonsillectomy Additional Past Surgical History / Comment(s): Left breast biopsy, ureteral stents bilaterally the one done on the left was in March 2016 the one on the right was from March 2018, left ureteral calculus extraction through a urethroscopy, colonoscopy, skin cancer resection from the forehead, , cholecystectomy, appendectomy, hysterectomy, tonsillectomy Past Anesthesia/Blood Transfusion Reactions: No Reported Reaction Additional Past Anesthesia/Blood Transfusion Reaction / Comment(s): WOKE UP VOMITING DURING Past Psychological History: No Psychological Hx Reported Smoking Status: Never smoker Past Alcohol Use History: None Reported Past Drug Use History: None Reported - Past Family History Brother(s) Family Medical History: AFIB, Neurologic Disorder Additional Family Medical History / Comment(s): No sisters one son healthy no daughters Father Family Medical History: Diabetes Mellitus, Deep Vein Thrombosis (DVT), Hypertension Additional Family Medical History / Comment(s): blind/neuropathy secondary to DM. Father is . Mother Family Medical History: Dementia Additional Family Medical History / Comment(s): Mother at age 88yrs. Medications and Allergies Home Medications Medication Instructions Recorded Confirmed Type Labetalol [Trandate] 100 mg PO BID-W/MEALS 04/09/15 04/30/18 History Thyroid,Pork [Pepperell Thyroid] 30 mg PO DAILY 04/09/15 04/30/18 History Iodine Supplement 1 tab PO DAILY 11/12/15 04/30/18 History Ascorbic Acid [Vitamin C] 500 mg PO DAILY 04/08/18 04/30/18 History Cholecalciferol [Vitamin D3] 5,000 unit PO HS 04/08/18 04/30/18 History Grape Seed Oil 1 cap PO BID 04/08/18 04/30/18 History Magnessium 666mg 333 mg PO DAILY 04/08/18 04/30/18 History Turmeric Root Extract [Turmeric] 500 mg PO HS 04/08/18 04/30/18 History Ubiquinol 100 mg PO DAILY 04/08/18 04/30/18 History Warfarin Sodium 10 mg PO 04/08/18 04/30/18 History Warfarin [Coumadin] 2.5 mg PO TUTHSA 04/08/18 04/30/18 History Beta Glucan 1 tab PO DAILY 04/15/18 04/30/18 History Calcitriol 0.5 mcg PO DAILY 04/15/18 04/30/18 History L.acidoph,Paracasei, B.lactis 1 each PO DAILY 04/15/18 04/30/18 History [Probiotic] Melatonin 9 mg PO HS 04/15/18 04/30/18 History Multivitamins, Thera [Multivitamin 1 tab PO DAILY 04/15/18 04/30/18 History (formulary)] Allergies Allergy/AdvReac Type Severity Reaction Status Date / Time lisinopril Allergy Severe Abdominal Verified 04/30/18 12:27 Pain promethazine Allergy Severe Anaphylaxis Verified 04/30/18 12:27 Sulfa (Sulfonamide Allergy Severe SEVERE Verified 04/30/18 12:27 Antibiotics) ASTHMA ATTACK azithromycin Allergy Diarrhea Verified 04/30/18 12:27 levofloxacin Allergy Unknown Verified 04/30/18 12:27 amlodipine besylate AdvReac Severe Severe Verified 04/30/18 12:27 [From Norvasc] drop in blood pressure adhesive AdvReac Unknown BLISTERS Verified 04/30/18 12:27 diazepam [From Valium] AdvReac "Stabbing Verified 04/30/18 12:27 pain in brain" meperidine HCl [From Demerol] AdvReac Nausea & Verified 04/30/18 12:27 Vomiting Physical Exam Vitals: Vital Signs Temp Pulse Pulse Resp BP BP Pulse Ox 05/01/18 13:00 79 20 140/76 98 05/01/18 12:00 98.7 F 74 19 116/64 96 05/01/18 11:00 72 21 122/64 98 05/01/18 10:00 74 16 140/61 98 05/01/18 09:00 79 16 151/70 98 05/01/18 08:00 98 F 71 17 135/70 98 05/01/18 07:00 71 18 117/67 97 05/01/18 06:00 61 19 140/67 97 05/01/18 05:00 69 19 125/69 97 05/01/18 04:00 98.3 F 68 20 129/71 96 05/01/18 03:47 22 05/01/18 03:00 81 22 131/74 97 05/01/18 02:00 76 19 112/63 96 06/02/18 01:00 75 16 136/69 95 05/01/18 00:00 98.1 F 73 19 131/71 96 04/30/18 23:00 76 20 136/71 96 04/30/18 22:00 84 17 148/65 97 04/30/18 21:00 88 26 H 140/77 98 04/30/18 20:00 97.9 F 84 18 152/82 97 04/30/18 19:00 72 20 142/90 98 04/30/18 18:30 81 20 140/82 96 04/30/18 18:00 87 41 H 139/69 98 04/30/18 17:30 85 25 H 108/101 97 04/30/18 17:00 83 20 137/81 97 04/30/18 16:50 85 20 149/89 98 04/30/18 16:40 86 20 149/89 98 04/30/18 16:30 94 16 149/89 97 04/30/18 16:20 125 H 16 153/96 97 04/30/18 16:10 98 F 116 H 14 153/96 96 04/30/18 16:08 96 14 98 04/30/18 16:00 14 04/30/18 15:34 98.8 F 107 H 20 146/80 94 L 04/30/18 15:28 98 F 83 14 149/89 96 04/30/18 14:06 99.2 F 85 20 143/75 Intake and Output 04/30/18 05/01/18 05/01/18 22:59 06:59 14:59 Intake Total 675 600 650 Output Total 0 0 Balance 675 600 650 Intake: IV 675 600 650 Magnesium Sulfate-D5w Pmx 300 200 1 gm In Dextrose/Water 1 100ml.bag @ 100 mls/hr IVPB Q1H RO[facility] Rx#: [id number] Sodium Chloride 0.9% 1, 375 600 450 000 ml @ 75 mls/hr IV . [id number] ROSE Rx#:[id number] Output: Urine 0 0 Other: Voiding Method Bedside Commode Bedside Commode Bedside Commode # Voids 1 1 1 # Bowel Movements 1 1 Weight 130.1 kg 162 kg - Constitutional General appearance: cooperative, morbidly obese - EENT Eyes: anicteric sclerae, EOMI, PERRLA, dentition normal, normal appearance ENT: NA/AT, normal oropharynx - Neck Neck: normal ROM - Respiratory Respiratory: bilateral: CTA, negative: diminished, dullness, rales - Cardiovascular Rhythm: irregularly irregular Heart sounds: normal: S1, S2 Abnormal Heart Sounds: no systolic murmur, no diastolic murmur, no rub, no S3 Gallop, no S4 Gallop, no click, no other - Gastrointestinal General gastrointestinal: normal bowel sounds, soft - Integumentary Integumentary: decreased turgor, normal - Neurologic Neurologic: CNII-XII intact - Musculoskeletal Musculoskeletal: gait normal, strength equal bilaterally - Psychiatric Psychiatric: A&O x's 3, appropriate affect, intact judgment & insight Results CBC & Chem 7: 05/01/18 04:34 05/01/18 04:34 Labs: Abnormal Lab Results - Last 24 Hours (Table) 04/30/18 04/30/18 04/30/18 Range/Units 15:08 16:07 20:47 WBC 10.9 H (3.8-10.6) k/uL RBC (3.80-5.40) m/uL Hgb 11.1 L (11.4-16.0) gm/dL Hct (34.0-46.0) % Neutrophils # 8.9 H (1.3-7.7) k/uL BUN (7-17) mg/dL Creatinine (0.52-1.04) mg/dL Glucose (74-99) mg/dL POC Glucose (mg/dL) 106 H (75-99) mg/dL 05/01/18 05/01/18 Range/Units 04:34 04:34 WBC (3.8-10.6) k/uL RBC 3.73 L (3.80-5.40) m/uL Hgb 10.3 L (11.4-16.0) gm/dL Hct 32.7 L (34.0-46.0) % Neutrophils # (1.3-7.7) k/uL BUN 18 H (7-17) mg/dL Creatinine 1.10 H (0.52-1.04) mg/dL Glucose 110 H (74-99) mg/dL POC Glucose (mg/dL) (75-99) mg/dL Microbiology - Last 24 Hours (Table) 04/30/18 12:34 Stool Culture - Preliminary Stool Thrombosis Risk Factor Assmnt - DVT/VTE Prophylaxis DVT/VTE Prophylaxis: Contraindicated - See note - Choose All That Apply Each Factor Represents 1 point: Abnormal pulmonary function (COPD), Obesity ( BMI >25), Swollen legs (current), Varicose veins Other Risk Factors: Yes Each Risk Factor Represents 2 Points: Age 61-74 years Thrombosis Risk Factor Assessment Total Risk Factor Score: 6 Thrombosis Risk Factor Assessment Level: High Risk Assessment and Plan Plan: 1. Acute lower GI bleeding presenting with hematoma Jicha, colonoscopy to be performed by Dr. Greenberg on 05/02/2018 as discussed, patient currently is in ICU closely monitored for blood losses, patient has mild blood loss anemia with 3 g drop of hemoglobin, Coumadin on hold secondary to lower GI bleed, patient required one dose of vitamin K for reversal, INR 1.4. Patient to be transfused with packed red blood cells if hemoglobin is under 7, current needs for blood transfusion 2 Recent treatment with cephalexin for Pyelonephritis with bilateral renal stones, obstructing left proximal ureteral stone, producing mild hydronephrosis , resolved 3 COPD with chronic hypoxemic respiratory failure on maintenance O2 nasal cannula 22/06. Outpatient pulmonary physician was Dr. Castro, 4 Paroxysmal atrial fibrillation on anticoagulation, Coumadin on hold secondary to lower GI bleed 5 recent kidney stones with obstructing left proximal ureteral stone producing moderate right hydronephrosis followed by Dr. Chi, status post cystoscopy with right ureteral stent Insertion 04/09/2018 6 Hypothyroidism on Pepperell Thyroid 30 mg daily 7 diabetes mellitus type 2 not on any oral agents before meals at bedtime Accu- Cheks, hemoglobin A1c 8 CKD stage III Baseline creatinine between 1.5-2.06 avoid nephrotoxins discontinue Motrin, avoid hypotension 9Hypertension on Trandate 100 mg twice a day 10 Chronic lymphedema, stable not on diuretics no adjustments needed at this time 11 Impaired mobility, scooter and walker on community ambulation 11Long-term anticoagulation, discontinue Coumadin and monitor for INR, on hold secondary to lower GI bleed 12Super obesity with BMI over 60
[2018-05-01] MEDS: MELATONIN 3 MG TABLET PO SCH (23:36)
[2018-05-02 04:10] LABS: Basophils % (A) 0 %; Eosinophils # (A) 0.2 k/uL (0-0.7); Eosinophils % (A) 2 %; HCT 30.2 % (34.0-46.0); HGB 9.7 gm/dL (11.4-16.0); Lymphocytes # (A) 1.5 k/uL (1.0-4.8); Lymphocytes % (A) 20 %; MCH 27.9 pg (25.0-35.0); MCHC 32.2 g/dL (31.0-37.0); MCV 86.7 fL (80.0-100.0); Monocytes # (A) 0.4 k/uL (0-1.0); Monocytes % (A) 6 %; Neutrophils # (A) 5.3 k/uL (1.3-7.7); Neutrophils % (A) 71 %; Platelet Count 188 k/uL (150-450); RBC 3.49 m/uL (3.80-5.40); RDW 15.4 % (11.5-15.5); WBC 7.4 k/uL (3.8-10.6)
[2018-05-02 04:19] LABS: Calcium 8.9 mg/dL (8.4-10.2); Potassium 4.1 mmol/L (3.5-5.1)
[2018-05-02 04:22] LABS: INR 1.2 (<1.2); Prothrombin Time 11.7 sec (9.0-12.0)
[2018-05-02] MEDS: MAGNESIUM SULFATE-D5W PMX 1 GM in DEXTROSE/WATER 1 100ML.BAG IVPB SCH ×2 (06:23→14:28)
[2018-05-02] MEDS ORDERED: PROPOFOL 10 MG/ML 20 ML VIAL IV ONE (07:56)
[2018-05-02] MEDS ORDERED: IV FLUID CONTINUATION 400 ML IV ONE (07:57)
--- NOTE | 2018-05-02 08:19 | P.PCN ---
Date of Procedure: 05/02/18 Procedure(s) Performed: BRIEF HISTORY: Patient is a 73-year-old pleasant female, admitted to the hospital with acute GI bleed. She had multiple episodes of bright blood per rectum and drop in hemoglobin from 13-10 g/dL. She is hence scheduled for an elective colonoscopy as a part of value should of acute lower GI bleed. PROCEDURE PERFORMED: Colonoscopy. PREOPERATIVE DIAGNOSIS: Acute lower GI bleed. IV sedation per Anesthesia. PROCEDURE: After informed consent was obtained, the patient, was brought into the endoscopy unit. IV sedation was administered by Anesthesia under continuous monitoring. Digital rectal examination was normal. Initially the Olympus CF- 160 flexible video colonoscope was then inserted in the rectum, gradually advanced into the cecum without any difficulty. Careful examination was performed as the scope was gradually being withdrawn. Ileocecal valve and the appendiceal orifice were visualized and appeared normal. Prep was excellent. Mucosa of the cecum, ascending colon, transverse colon, descending colon, appeared normal. In the sigmoid colon there was a 5 mm polyp removed by snare polypectomy. Moderate left-sided diverticulosis seen. The sigmoid colon, and rectum appeared normal. Retroflexion was performed in the rectum and no lesions were seen. The patient tolerated the procedure well. IMPRESSION: 5 mm sigmoid colon polyp status post polypectomy Moderate left sided diverticulosis RECOMMENDATIONS: Findings of this examination were discussed with the patient was a family. She was advised to follow with the biopsy results. Recent episode of lower GI bleed is mostly diverticular in nature which has spontaneously resolved. Diet will be advanced as tolerated.
[2018-05-02] MEDS: PANTOPRAZOLE 40 MG/10 ML VIAL IV SCH (08:33)
[2018-05-02] MEDS: THYROID, PORK 30 MG TAB PO SCH (08:33)
[2018-05-02] MEDS: LABETALOL 100 MG TAB PO SCH (08:33)
[2018-05-02] MEDS ORDERED: THYROID PORK 30 MG PO SCH (09:30)
--- NOTE | 2018-05-02 11:32 | P.PN ---
Subjective Progress Note Date: 05/02/18 This is a very pleasant 73-year-old here patient was hospitalized for an acute GI bleed. The patient was in the hospital recently approximately 3 weeks ago for complications of nephrolithiasis and acute pyelonephritis. As such the patient is known to be. She is known to have chronic atrial fibrillation and she has been maintained on anticoagulation with warfarin. The patient came into the emergency department with rectal bleeding. The patient started symptoms around 5 days ago and she progressive got worse and she started passing blood clots and bright red blood per rectum. She denied having any abdominal pain. No cramping. No rectal pain. No hematemesis. She was on Coumadin and she initially stop the treatment and restarted taking it back on Thursday which is around 2 days ago. The patient came in to the emergency department and she was found to be hemodynamically stable with a blood pressure 123/87. No significant tachycardia. Hemoglobin was 13.3 and dropped down to 12.4 on subsequent follow-up. Correlation profile showed an INR of 1.4 with a PT of 12.9. The renal function was stable with a creatinine of 1.02. The patient was given a total of 5 mg of vitamin K. No chronic liver disease. No intake of any nonsteroidal inflammatory medication. No peptic ulcer disease. The patient does not take any antiplatelet agents. She is on Coumadin. No alcoholism. Note that on 04/10/2018, the patient came in for acute pyelonephritis. The patient was seen by urology. The patient had cystoscopy and insertion of a right ureteral stent. The patient was also treated with antibiotics. Her urine culture was enterococcus species positive and she has had also previous urine checked infection with E. coli. The patient was stabilized. The renal function is also stabilized and the renal function normalizes and the patient was discharged home. She was discharged home on Keflex and nitrofurantoin. Her renal function remains stable. The patient is morbidly obese. She has a BMI 56.5. She also has hypothyroidism , nephrolithiasis, chronic atrial fibrillation maintained on warfarin, hyperlipidemia, hypertension, osteoarthritis, chronic lymphedema in lower extremities bilaterally. Note that she was quite septic related to a urine checked infection and was treated appropriately back in 04/10/2018 On 05/01/2018, the patient is stable and she has not had any further episodes of bleeding. She is tolerating clear liquid diet. She is going to have a prep for tomorrow, and bowel prep for colonoscopy. No nausea. No vomiting. No abdominal pain. No hemodynamic instability. Hemoglobin remains above 10. No further episodes of bleeding since she arrived to the intensive care unit. On 05/02/2018, the patient has been followed up in the intensive care unit. No further episodes of bleeding. Earlier this morning the patient underwent a colonoscopy for acute lower GI bleed. The patient was found to have moderate degree of left-sided diverticulosis and 5 mm sigmoid colon and the patient underwent a polypectomy. The patient did not have any signs of acute bleeding. The procedure was tolerated without any major complication and the patient was brought back to the intensive care unit. The patient was placed on soft diet and this will be gradually advanced. The recent episode of lower GI bleed is most likely diverticular in nature and resolved spontaneously. The patient is currently on IV fluids at 75 mL an hour which will be kept down. The patient is ambulating. No nausea. No vomiting. No chest pain. Hemoglobin stable still above 10. Objective - Vital Signs Vital signs: Vital Signs Temp 98.1 F 05/02/18 09:00 Pulse 65 05/02/18 11:00 Resp 16 05/02/18 11:00 BP 107/61 05/02/18 11:00 Pulse Ox 99 05/02/18 11:00 Intake & Output 05/01/18 05/02/18 05/02/18 18:59 06:59 18:59 Intake Total 1025 2075 250 Output Total 0 Balance 1025 2075 250 Weight 164.5 kg Intake: IV 1025 1075 250 Magnesium Sulfate-D5w Pmx 200 1 gm In Dextrose/Water 1 100ml.bag @ 100 mls/hr IVPB Q1H ROSE Rx#: [id number] Magnesium Sulfate-D5w Pmx 100 1 gm In Dextrose/Water 1 100ml.bag @ 100 mls/hr IVPB Q1H [facility] Rx#: [id number] Sodium Chloride 0.9% 1, 825 975 150 000 ml @ 10 mls/hr IV . Q24H ROSE Rx#:[id number] Oral 1000 Output: Urine 0 Other: Voiding Method Bedside Commode Bedside Commode # Voids 1 0 0 # Bowel Movements 1 1 1 - Exam - Constitutional General appearance: morbidly obese, no acute distress - EENT Eyes: EOMI, PERRLA, normal appearance ENT: NA/AT, normal oropharynx Ears: bilateral: normal - Neck Neck: no lymphadenopathy, normal ROM Carotids: bilateral: upstroke normal Thyroid: bilateral: normal size - Respiratory Respiratory: bilateral: CTA, diminished (At the bases) - Cardiovascular Rhythm: regular Heart sounds: normal: S1, S2 ankle Peripheral Edema: bilateral: Other (Chronic lymphedema of bilateral lower extremities) dorsalis pedis Peripheral Pulses: bilateral: Normal - Gastrointestinal General gastrointestinal: no organomegaly, soft, no tenderness - Integumentary Integumentary: normal turgor - Neurologic Neurologic: CNII-XII intact - Musculoskeletal Musculoskeletal: gait normal, strength equal bilaterally - Psychiatric Psychiatric: A&O x's 3, appropriate affect, intact judgment & insight - Labs CBC & Chem 7: 05/02/18 03:52 05/02/18 03:52 Labs: Abnormal Lab Results - Last 24 Hours (Table) 05/02/18 05/02/18 05/02/18 Range/Units 03:52 03:52 03:52 RBC 3.49 L (3.80-5.40) m/uL Hgb 9.7 L (11.4-16.0) gm/dL Hct 30.2 L (34.0-46.0) % INR 1.2 H (<1.2) Carbon Dioxide 31 H (22-30) mmol/L Glucose 106 H (74-99) mg/dL Assessment and Plan Plan: Assessment 1 acute GI bleeding like a lower GI source. The patient was on anticoagulation and she presented with an INR of 1.4 and the Coumadin is on hold and the patient was given family grams of vitamin K. Currently hemodynamically stable. Colonoscopy was conducted this morning and the patient was found to have moderate degree of diverticulosis on the left and a 5 mm sigmoid polyp that was resected. The bleeding source is most likely diverticular in nature based on the colonoscopy findings. There is no evidence of any acute bleeding. The patient has a stable hemoglobin and the patient's morning hemoglobin is at 9.7.. The patient is currently off anticoagulation and will discuss with GI as far as restarting anticoagulation at a later stage. The exact timing of anticoagulation will be discussed with GI. 2 recent hospitalization for enterococcal urinary tract infection and sepsis, recovered 3 recent hospitalization for right hydronephrosis and pyelonephritis requiring cystoscopy and right ureteral stent insertion 4 morbid obesity with a BMI of 56 5 chronic atrial fibrillation, currently off anticoagulation 6 hypothyroidism 7 history of left sided nephrolithiasis requiring a ureteral stent placement and removal 8 chronic lymphedema involving lower extremity is bilaterally 9 hypertension 10 hyperlipidemia 11 chronic hypoxic respiratory failure and the patient wears oxygen at 2 L/m nasal cannula at all times 12 skin cancer, resected 13 chronic asthma mild intermittent in nature Plan The patient can be moved out of the intensive care unit and possibly discharged home if all other parties are agreeable. Kept on IV fluids to KVO. Soft diet. Advance diet as tolerated. We will ask the exact duration of ventilation hold till gastroenterology and was clearly can restart back on anticoagulation. The patient was taken warfarin at home.
[2018-05-02 12:46] LABS: Glucose,Whole Blood 105 mg/dL (75-99)
[2018-05-02 14:58] VITALS: BP 142/62; PULSE 77; RESP 16; TEMP 97.7
--- NOTE | 2018-05-02 17:11 | P.DS ---
Providers Date of admission: 04/30/18 15:06 Expected date of discharge: 05/02/18 Attending physician: Yadira Pratt Consults: 04/30/18 15:09 Consult Physician Stat Consulting Provider: Erika Castro Consult Reason/Comments: ICU Do you want consulting provider notified?: Already Contacted 04/30/18 15:10 Consult Physician Stat Consulting Provider: Akshat Alberto Consult Reason/Comments: GI bleed Do you want consulting provider notified?: Yes Primary care physician: Too Espinosa [facility] Course: his is a pleasant 73-year-old lady patient of Dr. Jesús Castro, Dr Chi. She has underlying history of COPD chronic hypoxemia on O2 nasal cannula 22/06, lymphedema atrial fibrillation diabetes mellitus type 2, hypertensio chronic lymphedema n impaired balance on a walker scooter for Community ambulation admitted to emergency room secondary to hematochezia breaking discussed stools of 4 days' duration, while on anticoagulation using Coumadin. She recently was admitted secondary to Acute Pyelonephritis with bilateral renal stones, obstructing left proximal ureteral stone, producing moderate right hydronephrosis status post cystoscopy with right ureteral stent insertion for which she completed Keflex on 04/24/2018 for urinary tract infection/ Pyelonephritis. Patient was subsequently admitted emergency and sent to ICU for acute lower GI bleed presenting with the burgundy stools consult was made with Dr. Chantel Garrison patient denies any NSAID use, no history of abnormal ulcer or bleed, patient would undergo colonoscopy tomorrow May 02. Last colonoscopy 30years ago 05/02: Patient's anticipated to be discharged home today patient is feeling better , she had a colonoscopy that was performed that shows diverticulosis without any active bleeding, she had colon polyp which was excised and sent for pathology, patient was cleared by Dr. Greenberg gastroenterology for discharge today and was okay to initiate Coumadin at home dosing. INR to be checked in 3-4 days , outpatient. Cleared by Dr. Castro from critical medicine, patient tolerated diet without any current lower GI symptoms of bleed resolution of hematochezia. FINAL DIAGNOSIS 1. Acute lower GI bleeding presenting with hematomachezia from diverticulosis colonoscopy to be performed by Dr. Garrison on 05/02/2018 as discussed, showing diverticulosis with 5 mm colon polyp, excised. Stabilized out of ICU, no GI losses on discharge, Coumadin to restart at her home dose daily 05/02/2018, no blood transfusion required during this admission, had 1 time dose of vitamin K for reversal of INR at 1.4. 2 Recent treatment with cephalexin for Pyelonephritis with bilateral renal stones, obstructing left proximal ureteral stone, producing mild hydronephrosis , resolved , no GI symptoms and no urinary symptoms 3 COPD with chronic hypoxemic respiratory failure on maintenance O2 nasal cannula 22/06. Outpatient pulmonary physician was Dr. Castro, 4 Paroxysmal atrial fibrillation on anticoagulation, resumed Coumadin on discharge at home dose INR in 4 days 5 recent kidney stones with obstructing left proximal ureteral stone producing moderate right hydronephrosis followed by Dr. Chi, status post cystoscopy with right ureteral stent Insertion 04/09/2018 6 Hypothyroidism on [place] Thyroid 30 mg daily 7 diabetes mellitus type 2 not on any oral agents before meals at bedtime Accu- Cheks, hemoglobin A1c 8 CKD stage III Baseline creatinine between 1.5-2.06 avoid nephrotoxins discontinue Motrin, avoid hypotension 9Hypertension on Trandate 100 mg twice a day 10 Chronic lymphedema, stable not on diuretics no adjustments needed at this time 11 Impaired mobility, scooter and walker on community ambulation 11Long-term anticoagulation, with Coumadin and monitor for INR, on patient today held secondary to lower GI bleed 12Super obesity with BMI over 60 Discharge Medication List Labetalol [Trandate] 100 mg PO BID-W/MEALS 04/09/15 [History] Thyroid,Pork [[place] Thyroid] 30 mg PO DAILY 04/09/15 [History] Iodine Supplement 1 tab PO DAILY 11/12/15 [History] Ascorbic Acid [Vitamin C] 500 mg PO DAILY 04/08/18 [History] Cholecalciferol [Vitamin D3] 5,000 unit PO HS 04/08/18 [History] Grape Seed Oil 1 cap PO BID 04/08/18 [History] Magnessium 666mg 333 mg PO DAILY 04/08/18 [History] Turmeric Root Extract [Turmeric] 500 mg PO HS 04/08/18 [History] Ubiquinol 100 mg PO DAILY 04/08/18 [History] Warfarin Sodium 10 mg PO HS 04/08/18 [History] Warfarin [Coumadin] 2.5 mg PO TUTHSA 04/08/18 [History] Beta Glucan 1 tab PO DAILY 04/15/18 [History] Calcitriol 0.5 mcg PO DAILY 04/15/18 [History] L.acidoph,Paracasei, B.lactis [Probiotic] 1 each PO DAILY 04/15/18 [History] Melatonin 9 mg PO HS 04/15/18 [History] Multivitamins, Thera [Multivitamin (formulary)] 1 tab PO DAILY 04/15/18 [History ] Patient Condition at Discharge: Stable Plan - Discharge Summary New Discharge Prescriptions: Continue Thyroid,Pork [[place] Thyroid] 30 mg PO DAILY Labetalol [Trandate] 100 mg PO BID-W/MEALS Iodine Supplement 1 tab PO DAILY Warfarin [Coumadin] 2.5 mg PO TUTHSA Warfarin Sodium 10 mg PO HS Turmeric Root Extract [Turmeric] 500 mg PO HS Magnessium 666mg 333 mg PO DAILY Ascorbic Acid [Vitamin C] 500 mg PO DAILY Ubiquinol 100 mg PO DAILY Cholecalciferol [Vitamin D3] 5,000 unit PO HS Grape Seed Oil 1 cap PO BID L.acidoph,Paracasei, B.lactis [Probiotic] 1 each PO DAILY Calcitriol 0.5 mcg PO DAILY Beta Glucan 1 tab PO DAILY Multivitamins, Thera [Multivitamin (formulary)] 1 tab PO DAILY Melatonin 9 mg PO HS Discharge Medication List Labetalol [Trandate] 100 mg PO BID-W/MEALS 04/09/15 [History] Thyroid,Pork [[place] Thyroid] 30 mg PO DAILY 04/09/15 [History] Iodine Supplement 1 tab PO DAILY 11/12/15 [History] Ascorbic Acid [Vitamin C] 500 mg PO DAILY 04/08/18 [History] Cholecalciferol [Vitamin D3] 5,000 unit PO HS 04/08/18 [History] Grape Seed Oil 1 cap PO BID 04/08/18 [History] Magnessium 666mg 333 mg PO DAILY 04/08/18 [History] Turmeric Root Extract [Turmeric] 500 mg PO HS 04/08/18 [History] Ubiquinol 100 mg PO DAILY 04/08/18 [History] Warfarin Sodium 10 mg PO HS 04/08/18 [History] Warfarin [Coumadin] 2.5 mg PO TUTHSA 04/08/18 [History] Beta Glucan 1 tab PO DAILY 04/15/18 [History] Calcitriol 0.5 mcg PO DAILY 04/15/18 [History] L.acidoph,Paracasei, B.lactis [Probiotic] 1 each PO DAILY 04/15/18 [History] Melatonin 9 mg PO HS 04/15/18 [History] Multivitamins, Thera [Multivitamin (formulary)] 1 tab PO DAILY 04/15/18 [History ] Follow up Appointment(s)/Referral(s): Sagrario Garrison MD [STAFF PHYSICIAN] - 2 Weeks (patient to call for appointment on Thursday due to office is closed at time of discharge) Too Espinosa DO [Primary Care Provider] - 1-2 days (patient to call for appointment on Thursday due to office is closed at time of discharge) Ambulatory/Diagnostic Orders: Basic Metabolic Panel [LAB.AMB] Location: Determined By Patient Complete Blood Count w/diff [LAB.AMB] Location: Determined By Patient Prothrombin Time INR [LAB.AMB] Location: Determined By Patient Patient Instructions/Handouts: Gastrointestinal Bleeding (DC), Kidney Infection (DC), Ureteral Stones (DC) Discharge Disposition: HOME SELF-CARE
[2018-05-02] MEDS ORDERED: INSULIN ASPART 100 UNIT/ML 1 ML 10 ML VIAL SQ SCH (17:30)
== END 2018-05-02 16:08 | disposition home or self-care (01) | DRG 378 ==
LOC: EC 11:44 → 6ICU 15:06 → 5MS5E 05-02 14:10
PROVIDERS: ADMIT Internal Medicine; ATTEND Internal Medicine
PROC: 0DBN8ZX Excision of Sigmoid Colon, Via Natural or Artificial Opening Endoscopic, Diagnostic (ICD-10-PCS; principal; 2018-05-02 08:00)
DX: K57.31 Diverticulosis of large intestine without perforation or abscess with bleeding (principal); J96.11 Chronic respiratory failure with hypoxia; Z68.43 Body mass index [BMI] 50.0-59.9, adult; E11.22 Type 2 diabetes mellitus with diabetic chronic kidney disease; E66.01 Morbid (severe) obesity due to excess calories; I48.2 Chronic atrial fibrillation; J44.9 Chronic obstructive pulmonary disease, unspecified; N28.1 Cyst of kidney, acquired; N18.3 Chronic kidney disease, stage 3 (moderate); D50.0 Iron deficiency anemia secondary to blood loss (chronic); J45.20 Mild intermittent asthma, uncomplicated; E78.5 Hyperlipidemia, unspecified; I12.9 Hypertensive chronic kidney disease with stage 1 through stage 4 chronic kidney disease, or unspecified chronic kidney disease; D12.5 Benign neoplasm of sigmoid colon; E03.9 Hypothyroidism, unspecified; I89.0 Lymphedema, not elsewhere classified; M19.91 Primary osteoarthritis, unspecified site; I83.90 Asymptomatic varicose veins of unspecified lower extremity; R26.9 Unspecified abnormalities of gait and mobility; K59.00 Constipation, unspecified; R19.7 Diarrhea, unspecified; Z99.81 Dependence on supplemental oxygen; Z79.01 Long term (current) use of anticoagulants; Z79.899 Other long term (current) drug therapy; Z87.440 Personal history of urinary (tract) infections; Z87.81 Personal history of (healed) traumatic fracture; Z85.828 Personal history of other malignant neoplasm of skin; Z87.442 Personal history of urinary calculi; Z90.710 Acquired absence of both cervix and uterus; Z87.01 Personal history of pneumonia (recurrent); Z90.49 Acquired absence of other specified parts of digestive tract; Z91.048 Other nonmedicinal substance allergy status; Z88.1 Allergy status to other antibiotic agents; Z88.5 Allergy status to narcotic agent; Z88.2 Allergy status to sulfonamides; Z88.8 Allergy status to other drugs, medicaments and biological substances; Z82.49 Family history of ischemic heart disease and other diseases of the circulatory system; Z83.3 Family history of diabetes mellitus; Z82.1 Family history of blindness and visual loss; Z83.2 Family history of diseases of the blood and blood-forming organs and certain disorders involving the immune mechanism; Z82.0 Family history of epilepsy and other diseases of the nervous system; Z81.8 Family history of other mental and behavioral disorders
CPT/HCPCS: 36415; 45385; 80048; 80053; 82550; 82553; 83735; 84484; 85025; 85610; 85730; 86850; 86900; 86901; 87045; 87046; 88305; 96360; 99285

== ENCOUNTER → 2018-05-05 | Outpatient (CLI) | payer MEDICARE ==
[2018-05-05 14:56] LABS: INR 1.2 (<1.2); Prothrombin Time 11.6 sec (9.0-12.0)
== END | disposition home or self-care (01) ==
LOC: LABWHC1 14:13
PROVIDERS: ATTEND Family Medicine
DX: D50.0 Iron deficiency anemia secondary to blood loss (chronic) (principal)
CPT/HCPCS: 36415; 85610

== ENCOUNTER → 2018-05-05 | Outpatient (CLI) | payer MEDICARE ==
[2018-05-05 14:55] LABS: Basophils % (A) 0 %; Eosinophils # (A) 0.2 k/uL (0-0.7); Eosinophils % (A) 2 %; HCT 33.2 % (34.0-46.0); HGB 10.8 gm/dL (11.4-16.0); Lymphocytes # (A) 1.1 k/uL (1.0-4.8); Lymphocytes % (A) 14 %; MCH 28.9 pg (25.0-35.0); MCHC 32.6 g/dL (31.0-37.0); MCV 88.7 fL (80.0-100.0); Mean Platelet Volume 7.8; Monocytes # (A) 0.4 k/uL (0-1.0); Monocytes % (A) 6 %; Neutrophils # (A) 5.7 k/uL (1.3-7.7); Neutrophils % (A) 77 %; Platelet Count 245 k/uL (150-450); RBC 3.75 m/uL (3.80-5.40); RDW 15.8 % (11.5-15.5); WBC 7.5 k/uL (3.8-10.6)
[2018-05-05 15:01] LABS: Calcium 9.4 mg/dL (8.4-10.2); Potassium 4.4 mmol/L (3.5-5.1)
== END | disposition home or self-care (01) ==
LOC: LABPAT 14:11
PROVIDERS: ATTEND Urology
DX: Z01.812 Encounter for preprocedural laboratory examination (principal); E03.9 Hypothyroidism, unspecified; Z79.899 Other long term (current) drug therapy; N20.2 Calculus of kidney with calculus of ureter
CPT/HCPCS: 36415; 80048; 85025

== ENCOUNTER 2018-05-12 08:44 | Day surgery (SDC) | payer MEDICARE ==
[2018-05-06 17:35] VITALS: BMI 57.9
[~2018-05-12 08:44] MED LIST changes: -AMPICILLIN 1,000 MG in SODIUM CHLORIDE 0.9% 50 ML IVPB ONE; +DEXAMETHASONE SOD PHOSPHATE 10 MG/ML 1 ML VIAL IV ONE; -DEXTROSE 5%-0.45% NACL 1,000 ML IV SCH; -GENTAMICIN 160 MG in SODIUM CHLORIDE 0.9% 100 ML IVPB ONE; +GENTAMICIN 240 MG in SODIUM CHLORIDE 0.9% 100 ML IVPB ONE; -HYDROmorphone PCA 5 MG/25 ML SYRINGE IV PRN; -KETOROLAC 30 MG/ML 1 ML VIAL IVP PRN; +MIDAZOLAM 2 MG/2 ML VIAL IV PRN; -MORPHINE SULFATE 2 MG/ML SYRINGE IV PRN; -NALOXONE 0.4 MG/ML 1 ML VIAL IV PRN; -ONDANSETRON 4 MG/2 ML VIAL IVP ONE; -ONDANSETRON 4 MG/2 ML VIAL IVP PRN; +SCOPOLAMINE 1.5MG/72HR PATCH TRANSDERM ONE; -THYROID PORK 30 MG PO SCH; +fentaNYL (PF) 50 MCG/ML 2 ML AMP IV PRN
--- NOTE | 2018-05-12 09:04 | XR ---
EXAMINATION TYPE: XR KUB DATE OF EXAM: 05/12/2018 COMPARISON: 04/21/2018 INDICATION: Presurgical cystoscopy history of right-sided stones TECHNIQUE: Single view abdomen FINDINGS: There is a normal bowel gas pattern. Psoas margins are normal. No organomegaly is present. There is an oval calcification measuring 0.4 x 1.1 cm in the left hemipelvis. This could be a distal ureteral stone. This is not clearly evident on the comparison study. A pigtail catheter is present on the right. There may be a 0.7 cm left renal stone present at the left renal pelvis. IMPRESSION: 1. There appears be a 0.7 cm on the left renal pelvic stone and a 0.4 x 1 cm calcification in the dis marcella left hemipelvis not clearly identified on the comparison plain film. 2. Right-sided pigtail catheter is present.
[2018-05-12 09:38] LABS: Glucose,Whole Blood 113 mg/dL (75-99)
[2018-05-12] MEDS ORDERED: MIDAZOLAM 2 MG/2 ML VIAL ONE (10:16)
[2018-05-12] MEDS ORDERED: ROCURONIUM BROMIDE 10 MG/ML 10 ML VIAL IV ONE (10:16)
[2018-05-12] MEDS ORDERED: fentaNYL (PF) 50 MCG/ML 2 ML AMP ONE (10:16)
[2018-05-12] MEDS ORDERED: LIDOCAINE 1% INJ 10MG/ML (20 ML MDV) ONE (10:16)
[2018-05-12] MEDS ORDERED: PROPOFOL 10 MG/ML 20 ML VIAL IV ONE (10:16)
[2018-05-12] MEDS ORDERED: GLYCOPYRROLATE 0.2 MG/ML 2 ML VIAL ONE (10:16)
[2018-05-12] MEDS ORDERED: NEOSTIGMINE 1 MG/ML 10 ML VIAL ONE (10:16)
[2018-05-12] MEDS ORDERED: SUCCINYLCHOLINE CHLORIDE 100 MG/5 ML SYR IV ONE (10:16)
--- NOTE | 2018-05-12 11:19 | P.OP ---
Date of Procedure: 05/12/18 Preoperative Diagnosis: Right renal stones Postoperative Diagnosis: Same Procedure(s) Performed: Cystoscopy, removal double-J catheter right, right ureteroscopy with stone basketing Anesthesia: KAMLESH Surgeon: Paul Chi Estimated Blood Loss (ml): 0 Pathology: other (Stone) Condition: stable Disposition: PACU Indications for Procedure: The patient is a 73-year-old female, morbidly obese and wheelchair bound with kidney stones. She had a double-J catheter placed for an obstructing infected stone. Proximally 3 weeks ago I did ureteroscopy laser lithotripsy to stones. Comes for removal of any remaining fragments and stent removal Description of Procedure: The patient is brought to the operating suite. She is given a successful general endotracheal anesthesia. She's placed in a lithotomy position with very careful care to her airways and extremities due to her obesity. A sterile prep and drape was administered. Cystoscopy with Foroblique lens and 22-Polish sheath identifies an irritated bladder from the double-J catheter with a right double-J catheter. The tip of the catheters pulled to the urethral meatus. Through the catheter no 35 wires passed up into the renal pelvis. I remove the double-J catheter pass a 03-85-[id number] reentry sheath. Through the 14-Polish sheath a flexible ureteroscope was passed up into the collecting system. There is a lot of old blood in the upper pole. A stone was identified and basketed with a 1.9-Polish basket. A irrigate thoroughly to make sure that no remaining stones and there are none. I look through the renal pelvis and the rest the collecting system and see no remaining stones. The ureteroscope and the reentry sheath is removed the bladder strain the patient's awakened and returned recovery room good condition Impression successful stent and stone removal. The patient will be discharged home upon recovery and found the office in 10 days.
[2018-05-12 11:31] VITALS: TEMP 97.6
--- NOTE | 2018-05-12 12:03 | FL ---
Fluoroscopy HISTORY: Right renal stones 12 seconds fluoroscopy time supplied to the referring clinician. 1 intraoperative C-arm images docum ent the procedure. See dictated report from urology.
[2018-05-12 12:08] VITALS: RESP 16
[2018-05-12 13:31] VITALS: BP 147/77; PULSE 58
== END 2018-05-12 13:36 | disposition home or self-care (01) ==
LOC: OR 08:44
PROVIDERS: ATTEND Urology
DX: N20.0 Calculus of kidney (principal); I48.91 Unspecified atrial fibrillation; E78.5 Hyperlipidemia, unspecified; I10 Essential (primary) hypertension; E03.9 Hypothyroidism, unspecified; J44.9 Chronic obstructive pulmonary disease, unspecified; K92.2 Gastrointestinal hemorrhage, unspecified; E66.01 Morbid (severe) obesity due to excess calories; Z68.43 Body mass index [BMI] 50.0-59.9, adult; Z99.3 Dependence on wheelchair; Z87.440 Personal history of urinary (tract) infections; Z79.890 Hormone replacement therapy; Z79.899 Other long term (current) drug therapy; Z79.01 Long term (current) use of anticoagulants; Z88.1 Allergy status to other antibiotic agents; Z88.2 Allergy status to sulfonamides; Z88.8 Allergy status to other drugs, medicaments and biological substances; Z88.5 Allergy status to narcotic agent
CPT/HCPCS: 82365; 74018; 52352; C1769; C1894; J2250; J1100; J2710; J2001; J3010; J1580; J0330; J2704

== ENCOUNTER → 2018-06-08 | Outpatient (CLI) | payer MEDICARE ==
[2018-06-08 14:14] LABS: Basophils # (A) 0.1 k/uL (0-0.2); Basophils % (A) 1 %; Eosinophils # (A) 0.2 k/uL (0-0.7); Eosinophils % (A) 2 %; HCT 42.4 % (34.0-46.0); HGB 13.6 gm/dL (11.4-16.0); Hypochromasia Slight; Lymphocytes # (A) 1.4 k/uL (1.0-4.8); Lymphocytes % (A) 14 %; MCH 27.7 pg (25.0-35.0); MCHC 32.1 g/dL (31.0-37.0); MCV 86.5 fL (80.0-100.0); Monocytes # (A) 0.3 k/uL (0-1.0); Monocytes % (A) 3 %; Neutrophils % (A) 79 %; Platelet Count 272 k/uL (150-450); RBC 4.91 m/uL (3.80-5.40); RDW 14.3 % (11.5-15.5)
[2018-06-08 14:20] LABS: Appearance,Urine Clear (Clear); Bacteria,Urine Rare /hpf; Bilirubin,Urine Negative (Negative); Blood,Urine Small (Negative); Color,Urine Yellow; Glucose,Urine (UA) Negative (Negative); Hyaline Casts,Urine 1 /lpf (0-2); Ketones,Urine Negative (Negative); Leukocyte Esterase,Urine Large (Negative); Mucus,Urine Rare /hpf; Nitrite,Urine Negative (Negative); Protein,Urine Negative (Negative); RBC,Urine 14 /hpf (0-5); Specific Gravity,Urine 1.006 (1.001-1.035); Squamous Epithelial Cell,Urine <1 /hpf (0-4); Urobilinogen,Urine <2.0 mg/dL (<2.0); WBC,Urine 27 /hpf (0-5)
[2018-06-08 14:31] LABS: Calcium 9.3 mg/dL (8.4-10.2); Potassium 4.3 mmol/L (3.5-5.1)
== END ==
LOC: LABPAT 13:53
PROVIDERS: ATTEND Urology
DX: Z01.812 Encounter for preprocedural laboratory examination (principal); N20.0 Calculus of kidney; E03.9 Hypothyroidism, unspecified; R31.29 Other microscopic hematuria
CPT/HCPCS: 36415; 80048; 81001; 85025; 87086

== ENCOUNTER 2018-06-16 08:34 | Day surgery (SDC) | payer MEDICARE ==
[2018-06-10 13:56] VITALS: BMI 57.2
--- NOTE | 2018-06-15 09:16 | P.GSHP ---
History of Present Illness H&P Date: 06/15/18 73 yo morbidly obese womnen with kdiney stones who comes for a left ureteroscopy and laser lithotripsy to a left renal stone - Constitutional Constitutional: Reports chronic pain, Reports fatigue - Gastrointestinal Gastrointestinal: Reports as per HPI Past Medical History Past Medical History: Atrial Fibrillation, Asthma, Cancer, Diabetes Mellitus, Hyperlipidemia, Hypertension, Osteoarthritis (OA), Renal Disease, Thyroid Disorder Additional Past Medical History / Comment(s): Chronic bronchial asthma, chronic atrial fibrillation, hypothyroidism, lymphedema of the lower extremities, varicose veins involving lower extremities, recent sepsis secondary to enterococcal urinary tract infection, history of nephrolithiasis status post insertion of ureteral stents bilaterally, history of right pyelonephritis, history of acute kidney injury. The patient has difficulty with mobility and she moves around out of her scooter and she can only walk short distances, skin cancer that has been removed, chronic hypoxic respiratory failure maintained on oxygen. History of Any Multi-Drug Resistant Organisms: None Reported Past Surgical History: Appendectomy, Breast Surgery, Section, Cholecystectomy, Hysterectomy, Tonsillectomy Additional Past Surgical History / Comment(s): Left breast biopsy, ureteral stents bilaterally the one done on the left was in March 2016 the one on the right was from March 2018, left ureteral calculus extraction through a urethroscopy, colonoscopy, skin cancer resection from the forehead. Past Anesthesia/Blood Transfusion Reactions: No Reported Reaction Additional Past Anesthesia/Blood Transfusion Reaction / Comment(s): WOKE UP VOMITING DURING Smoking Status: Never smoker - Past Family History Brother(s) Family Medical History: AFIB, Neurologic Disorder Additional Family Medical History / Comment(s): No sisters one son healthy no daughters Father Family Medical History: Diabetes Mellitus, Deep Vein Thrombosis (DVT), Hypertension Additional Family Medical History / Comment(s): blind/neuropathy secondary to DM. Father is . Mother Family Medical History: Dementia Additional Family Medical History / Comment(s): Mother at age 88yrs. Medications and Allergies Home Medications Medication Instructions Recorded Confirmed Type Labetalol [Trandate] 50 mg PO DAILY 04/09/15 06/10/18 History Thyroid,Pork [[place] Thyroid] 45 mg PO DAILY 04/09/15 06/10/18 History Iodine Supplement 1 tab PO DAILY 11/12/15 06/10/18 History Grape Seed Oil 1 cap PO BID 04/08/18 06/10/18 History Magnessium 666mg 333 mg PO DAILY 04/08/18 06/10/18 History Turmeric Root Extract [Turmeric] 500 mg PO HS 04/08/18 06/10/18 History Ubiquinol 100 mg PO DAILY 04/08/18 06/10/18 History Warfarin Sodium 10 mg PO DAILY 04/08/18 06/10/18 History Warfarin [Coumadin] 2.5 mg PO TUTHSA 04/08/18 06/10/18 History Beta Glucan 20 mg PO HS 04/15/18 06/10/18 History Calcitriol 0.5 mcg PO Q7D 04/15/18 06/10/18 History L.acidoph,Paracasei, B.lactis 1 each PO DAILY 04/15/18 06/10/18 History [Probiotic] Melatonin 6 mg PO HS 04/15/18 06/10/18 History B Complex-Vit C-Vit E-Zinc [Z-Bec] 1 tab PO DAILY 05/06/18 06/10/18 History Allergies Allergy/AdvReac Type Severity Reaction Status Date / Time lisinopril Allergy Severe Abdominal Verified 06/10/18 12:01 Pain promethazine Allergy Severe Anaphylaxis Verified 06/10/18 12:01 Sulfa (Sulfonamide Allergy Severe SEVERE Verified 06/10/18 12:01 Antibiotics) ASTHMA ATTACK azithromycin Allergy Diarrhea Verified 06/10/18 12:01 levofloxacin Allergy Unknown Verified 06/10/18 12:01 amlodipine besylate AdvReac Severe Severe Verified 06/10/18 12:01 [From Norvasc] drop in blood pressure adhesive AdvReac Unknown BLISTERS Verified 06/10/18 12:01 diazepam [From Valium] AdvReac "Stabbing Verified 06/10/18 12:01 pain in brain" meperidine HCl [From Demerol] AdvReac Nausea & Verified 06/10/18 12:01 Vomiting Surgical - Exam - General well developed, well nourished, obese - Eyes PERRL - ENT no hearing loss - Respiratory normal expansion, normal respiratory effort - Cardiovascular Rhythm: regular - Abdomen Abdomen: soft, non tender - Neurologic normal coordination, normal sensation - Musculoskeletal normal posture - Psychiatric oriented to time, oriented to person, oriented to place, speech is normal, memory intact Assessment and Plan Assessment: Impression: Left renal stone morbid obesity Plan cysto, left ureteroscopy and laser lithotripsy
[~2018-06-16 08:34] MED LIST changes: +AMPICILLIN 1,000 MG in SODIUM CHLORIDE 0.9% 50 ML IVPB ONE; -DEXAMETHASONE SOD PHOSPHATE 10 MG/ML 1 ML VIAL IV ONE; +GENTAMICIN 160 MG in SODIUM CHLORIDE 0.9% 100 ML IVPB ONE; -GENTAMICIN 240 MG in SODIUM CHLORIDE 0.9% 100 ML IVPB ONE; +HYDROmorphone 0.5 MG/0.5 ML SYRINGE IVP PRN; -LIDOCAINE 1% 20 ML VIAL (10MG/ML) FOR IV START INTRADERMA PRN; -MIDAZOLAM 2 MG/2 ML VIAL IV PRN; +ONDANSETRON 4 MG/2 ML VIAL IVP PRN; -SCOPOLAMINE 1.5MG/72HR PATCH TRANSDERM ONE
--- NOTE | 2018-06-16 09:09 | XR ---
EXAMINATION TYPE: XR KUB DATE OF EXAM: 06/16/2018 8:50 AM CLINICAL HISTORY: History of kidney stones, preop urinary calculi TECHNIQUE: Two supine KUB images of the abdomen are obtained. COMPARISON: Most recent abdominal x-ray May 12, [address] abdomen and pelvis March FINDINGS: There is interval removal of right double-J ureter stent. There is redemonstration of media l calculus mid to lower pole level left kidney centrally likely at UPJ measuring 9 mm long axis on x- ray. No definite right-sided nephrolithiasis. Left-sided pelvic phleboliths redemonstrated. Interval successful treatment or passage of left-sided bladder calculus on recent x-ray. Underlying levoconvex scoliosis centered L2 level remains present. Advanced disc space narrowing and spurring at L1-L2 and L2-L3 levels is again seen. Cholecystectomy clips are redemonstrated. Overall n onobstructive bowel gas pattern is noted. IMPRESSION: Interval removal of right double-J ureter stent. Persistent central collecting system or UPJ calculus measuring 9 mm long axis on today's x-ray versus roughly [address]
[2018-06-16 09:39] LABS: Glucose,Whole Blood 104 mg/dL (75-99)
[2018-06-16] MEDS ORDERED: LIDOCAINE 1% 20 ML VIAL (10MG/ML) FOR IV START INTRADERMA ONE (09:52)
[2018-06-16] MEDS: ONDANSETRON 4 MG/2 ML VIAL IVP PRN ×2 (09:53→13:55)
[2018-06-16 10:03] LABS: INR 1.1 (<1.2); Prothrombin Time 10.5 sec (9.0-12.0)
[2018-06-16] MEDS ORDERED: LIDOCAINE 1% INJ 10MG/ML (20 ML MDV) ONE (10:52)
[2018-06-16] MEDS ORDERED: fentaNYL (PF) 50 MCG/ML 2 ML AMP ONE (10:52)
[2018-06-16] MEDS ORDERED: MIDAZOLAM 2 MG/2 ML VIAL ONE (10:52)
[2018-06-16] MEDS ORDERED: PROPOFOL 10 MG/ML 20 ML VIAL IV ONE (10:52)
[2018-06-16] MEDS ORDERED: SUCCINYLCHOLINE CHLORIDE VIAL 200 MG/10 ML VIAL IV ONE (10:52)
--- NOTE | 2018-06-16 11:50 | P.OP ---
Date of Procedure: 06/16/18 Postoperative Diagnosis: Left renal stone Procedure(s) Performed: Same Anesthesia: KAMLESH Surgeon: Paul Chi Estimated Blood Loss (ml): 0 Pathology: none sent Condition: stable Disposition: PACU Indications for Procedure: The patient is a 73-year-old morbidly obese female with history of kidney stones. She had right renal stones treated with ureteroscopic lithotripsy she has an asymptomatic 9 mm stone on the left that we will do the same with. Description of Procedure: Patient is brought to the operating suite. She is given a general endotracheal anesthesia. She's placed lithotomy position with sterile prep and drape. The stone was seen on fluoroscopy. Cystoscopy Foroblique lens and 22-[place] sheath identifies a normal bladder. The left ureteral orifice is identified and intubated with an 035 wire. Its passed up in the renal pelvis. Over the wires passed 97-49-Actnau reentry sheath. The inner sheath is removed. Pass a flexible ureteroscope up into the collecting system and identify the stone. With the 200 laser probe and 3 W of energy the stone is dusted into small pieces. The procedure I looked throughout the collecting system see no remaining stones. She'll pass a sound like fragments. The ureteroscope and the reentry sheath removed. The patient's awake and returned recovery room good condition. She'll be discharged home upon recovery and found the office in 2 weeks.
--- NOTE | 2018-06-16 13:18 | FL ---
Fluoroscopy HISTORY: Ureteroscopy with laser 10 seconds fluoroscopy time supplied to the referring clinician. 1 intraoperative C-arm images docum ent the procedure. See dictated report from urology.
[2018-06-16] MEDS ORDERED: DEXAMETHASONE SOD PHOS (MDV) 100 MG/10 ML VIAL IV ONE (13:24)
[2018-06-16] MEDS ORDERED: MORPHINE SULFATE 4 MG/ML SYRINGE IV ONE (13:46)
[2018-06-16] MEDS ORDERED: ACETAMINOPHEN TAB 325 MG TAB PO PRN (14:09)
[2018-06-16] MEDS ORDERED: NALOXONE 0.4 MG/ML 1 ML VIAL IV PRN (14:12)
[2018-06-16] MEDS ORDERED: DEXTROSE 5%-0.45% NACL 1,000 ML IV SCH (14:15)
[2018-06-16] MEDS ORDERED: HYDROmorphone PCA 5 MG/25 ML SYRINGE IV PRN (15:00)
[2018-06-16] MEDS: LACTATED RINGERS 1,000 ML IV SCH (15:18)
[2018-06-16] MEDS: KETOROLAC 30 MG/ML 1 ML VIAL IVP SCH (17:25)
[2018-06-16] MEDS: NITROFURANTOIN MONOHYD/M-CRYST 100 MG CAP PO SCH (22:03)
[2018-06-16] MEDS: HEPARIN SODIUM,PORCINE 5,000 UNIT/ML 1 ML VIAL SQ SCH (22:03)
[2018-06-17] MEDS: KETOROLAC 30 MG/ML 1 ML VIAL IVP SCH ×2 (00:11→08:24)
--- NOTE | 2018-06-17 06:50 | P.DS ---
Providers Attending physician: Paul Chi Primary care physician: [facility] Course: The patient underwent a left ureteroscopy and laser lithotripsy to a 9 mm renal stone yesterday. She had postoperative discomfort and spasm thus she was placed in the hospital and observation overnight. Her pain subsided in the evening and this morning she feels much better. Her vital signs are stable. She'll be discharged home today. She will resume all her home medication. She' ll be seen in the office in a couple of weeks. Postoperative instructions Patient Condition at Discharge: Good Plan - Discharge Summary Discharge Rx Participant: No New Discharge Prescriptions: No Action Thyroid,Pork [Rohwer Thyroid] 45 mg PO DAILY Labetalol [Trandate] 50 mg PO DAILY Iodine Supplement 1 tab PO DAILY Warfarin [Coumadin] 2.5 mg PO TUTHSA Warfarin Sodium 10 mg PO DAILY Turmeric Root Extract [Turmeric] 500 mg PO HS Magnessium 666mg 333 mg PO DAILY Ubiquinol 100 mg PO DAILY Grape Seed Oil 1 cap PO BID L.acidoph,Paracasei, B.lactis [Probiotic] 1 each PO DAILY Calcitriol 0.5 mcg PO Q7D Beta Glucan 20 mg PO HS Melatonin 6 mg PO HS B Complex-Vit C-Vit E-Zinc [Z-Bec] 1 tab PO DAILY Nitrofurantoin Monohyd/M-Cryst [Macrobid] 1 cap PO BID Discharge Medication List Labetalol [Trandate] 50 mg PO DAILY 04/09/15 [History] Thyroid,Pork [Rohwer Thyroid] 45 mg PO DAILY 04/09/15 [History] Iodine Supplement 1 tab PO DAILY 11/12/15 [History] Grape Seed Oil 1 cap PO BID 04/08/18 [History] Magnessium 666mg 333 mg PO DAILY 04/08/18 [History] Turmeric Root Extract [Turmeric] 500 mg PO HS 04/08/18 [History] Ubiquinol 100 mg PO DAILY 04/08/18 [History] Warfarin Sodium 10 mg PO DAILY 04/08/18 [History] Warfarin [Coumadin] 2.5 mg PO TUTHSA 04/08/18 [History] Beta Glucan 20 mg PO HS 04/15/18 [History] Calcitriol 0.5 mcg PO Q7D 04/15/18 [History] L.acidoph,Paracasei, B.lactis [Probiotic] 1 each PO DAILY 04/15/18 [History] Melatonin 6 mg PO HS 04/15/18 [History] B Complex-Vit C-Vit E-Zinc [Z-Bec] 1 tab PO DAILY 05/06/18 [History] Nitrofurantoin Monohyd/M-Cryst [Macrobid] 1 cap PO BID 06/16/18 [History] Follow up Appointment(s)/Referral(s): Paul Chi MD [Family Provider] - 2 Weeks Patient Instructions/Handouts: Cystoscopy (DC), Lithotripsy (DC) Activity/Diet/Wound Care/Special Instructions: ok to resume blood thinners tomorrow Discharge Disposition: HOME SELF-CARE
[2018-06-17 08:22] VITALS: BP 113/62; PULSE 79; RESP 14; TEMP 98.6
[2018-06-17] MEDS: LACTATED RINGERS 1,000 ML IV SCH (08:24)
[2018-06-17] MEDS: HEPARIN SODIUM,PORCINE 5,000 UNIT/ML 1 ML VIAL SQ SCH (08:27)
[2018-06-17] MEDS: NITROFURANTOIN MONOHYD/M-CRYST 100 MG CAP PO SCH (08:27)
[2018-06-17] MEDS ORDERED: THYROID, PORK 30 MG TAB PO SCH (09:00)
== END 2018-06-17 09:15 | disposition home or self-care (01) ==
LOC: OR 08:34 → 3SUR 12:05 → OR 06-17 09:15
PROVIDERS: ATTEND Urology
DX: N20.0 Calculus of kidney (principal); Z87.442 Personal history of urinary calculi; E66.01 Morbid (severe) obesity due to excess calories; Z68.43 Body mass index [BMI] 50.0-59.9, adult; E11.9 Type 2 diabetes mellitus without complications; E78.5 Hyperlipidemia, unspecified; I10 Essential (primary) hypertension; M19.90 Unspecified osteoarthritis, unspecified site; J45.998 Other asthma; I48.2 Chronic atrial fibrillation; E03.9 Hypothyroidism, unspecified; I89.0 Lymphedema, not elsewhere classified; I83.93 Asymptomatic varicose veins of bilateral lower extremities; Z87.440 Personal history of urinary (tract) infections; Z85.828 Personal history of other malignant neoplasm of skin; Z79.890 Hormone replacement therapy; Z79.899 Other long term (current) drug therapy; Z79.01 Long term (current) use of anticoagulants; Z88.8 Allergy status to other drugs, medicaments and biological substances; Z88.1 Allergy status to other antibiotic agents; Z88.2 Allergy status to sulfonamides
CPT/HCPCS: 85610; 74018; 52353; C1769; J2250; J0330; J2270; J1580; J1644 ×2; J2405; J2001; J3010; J1885 ×2; J1100; J1170; J2704

== ENCOUNTER 2018-06-18 03:02 | Emergency (ER) | payer MEDICARE ==
[2018-06-18] MEDS ORDERED: cefTRIAXone IN SWFI 1,000 MG/10 ML SYRINGE IVP ONE (04:30)
[2018-06-18 05:57] LABS: ALT 35 U/L (9-52); AST 25 U/L (14-36); Albumin 3.9 g/dL (3.5-5.0); Alkaline Phosphatase 75 U/L (38-126); Amylase <30 U/L (30-110); Anion Gap 11 mmol/L; Blood Urea Nitrogen 29 mg/dL (7-17); Calcium 9.2 mg/dL (8.4-10.2); Carbon Dioxide 24 mmol/L (22-30); Chloride 100 mmol/L (98-107); Glucose 114 mg/dL (74-99); Lipase 29 U/L (23-300); Potassium 4.4 mmol/L (3.5-5.1); Sodium 135 mmol/L (137-145); Total Protein 6.5 g/dL (6.3-8.2)
[2018-06-18 06:01] LABS: INR 1.1 (<1.2); Partial Thromboplastin Time 23.2 sec (22.0-30.0); Prothrombin Time 10.6 sec (9.0-12.0)
[2018-06-18 06:09] LABS: Amorphous Sediment,Urine Rare /hpf; Appearance,Urine Cloudy (Clear); Bilirubin,Urine Negative (Negative); Blood,Urine Large (Negative); Color,Urine Yellow; Glucose,Urine (UA) Negative (Negative); Ketones,Urine Negative (Negative); Leukocyte Esterase,Urine Large (Negative); Nitrite,Urine Negative (Negative); PH, Urine 5.5 (5.0-8.0); Protein,Urine 1+ (Negative); RBC,Urine 50 /hpf (0-5); Specific Gravity,Urine 1.007 (1.001-1.035); Squamous Epithelial Cell,Urine 2 /hpf (0-4); Urobilinogen,Urine <2.0 mg/dL (<2.0); WBC,Urine 28 /hpf (0-5)
[2018-06-18 06:21] LABS: Basophils % (A) 0 %; Eosinophils # (A) 0.2 k/uL (0-0.7); Eosinophils % (A) 1 %; HCT 37.1 % (34.0-46.0); HGB 12.2 gm/dL (11.4-16.0); Lymphocytes % (A) 6 %; MCH 28.4 pg (25.0-35.0); MCHC 32.8 g/dL (31.0-37.0); MCV 86.6 fL (80.0-100.0); Mean Platelet Volume 7.6; Monocytes # (A) 0.7 k/uL (0-1.0); Monocytes % (A) 4 %; Neutrophils # (A) 14.5 k/uL (1.3-7.7); Neutrophils % (A) 88 %; Platelet Count 195 k/uL (150-450); RBC 4.28 m/uL (3.80-5.40); RDW 14.5 % (11.5-15.5); WBC 16.5 k/uL (3.8-10.6)
== END 2018-06-18 04:39 | disposition home or self-care (01) ==
LOC: EC 03:02
DX: N39.0 Urinary tract infection, site not specified (principal); Z98.890 Other specified postprocedural states; Z87.442 Personal history of urinary calculi; Z88.8 Allergy status to other drugs, medicaments and biological substances; Z88.5 Allergy status to narcotic agent; Z91.048 Other nonmedicinal substance allergy status
CPT/HCPCS: 36415; 80053; 81001; 82150; 83690; 85025; 85610; 85730; 87086; 96374; 99284

== ENCOUNTER → 2018-06-21 | Outpatient (CLI) | payer MEDICARE ==
[2018-06-21 14:36] LABS: Appearance,Urine Cloudy (Clear); Bacteria,Urine Moderate /hpf; Bilirubin,Urine Negative (Negative); Blood,Urine Small (Negative); Color,Urine Yellow; Glucose,Urine (UA) Negative (Negative); Hyaline Casts,Urine 3 /lpf (0-2); Ketones,Urine Negative (Negative); Leukocyte Esterase,Urine Large (Negative); Mucus,Urine Rare /hpf; Nitrite,Urine Negative (Negative); Protein,Urine Trace (Negative); RBC,Urine 11 /hpf (0-5); Specific Gravity,Urine 1.009 (1.001-1.035); Squamous Epithelial Cell,Urine 3 /hpf (0-4); Urobilinogen,Urine <2.0 mg/dL (<2.0); WBC,Urine 75 /hpf (0-5)
[2018-06-21 14:37] LABS: Basophils % (A) 0 %; Eosinophils # (A) 0.2 k/uL (0-0.7); Eosinophils % (A) 2 %; HGB 12.9 gm/dL (11.4-16.0); Lymphocytes % (A) 10 %; MCH 27.6 pg (25.0-35.0); MCHC 32.2 g/dL (31.0-37.0); MCV 85.8 fL (80.0-100.0); Mean Platelet Volume 7.6; Monocytes # (A) 0.5 k/uL (0-1.0); Monocytes % (A) 5 %; Neutrophils # (A) 8.2 k/uL (1.3-7.7); Neutrophils % (A) 82 %; Platelet Count 249 k/uL (150-450); RBC 4.66 m/uL (3.80-5.40); RDW 14.2 % (11.5-15.5); WBC 9.9 k/uL (3.8-10.6)
[2018-06-21 14:48] LABS: Calcium 9.3 mg/dL (8.4-10.2); Magnesium 1.6 mg/dL (1.6-2.3); Phosphorus 3.7 mg/dL (2.5-4.5); Potassium 4.4 mmol/L (3.5-5.1)
[2018-06-21 19:48] LABS: Vitamin D 25 Hydroxy 53.8 ng/mL (30.0-100.0)
[2018-06-21 20:06] LABS: Iron Saturation 8.47 (12.00-45.00)
== END | disposition home or self-care (01) ==
LOC: LABWHC1 13:39
PROVIDERS: ATTEND Nurse Practitioner Family
DX: N18.3 Chronic kidney disease, stage 3 (moderate) (principal); E55.9 Vitamin D deficiency, unspecified; N25.81 Secondary hyperparathyroidism of renal origin; D50.9 Iron deficiency anemia, unspecified; M10.9 Gout, unspecified; N39.0 Urinary tract infection, site not specified
CPT/HCPCS: 36415; 80048; 81001; 82306; 82728; 83540; 83550; 83735; 83970; 84100; 84550; 85025; 87086

== ENCOUNTER → 2018-08-24 | Outpatient (CLI) | payer MEDICARE ==
[2018-08-24 17:11] LABS: Prothrombin Time 18.5 sec (9.0-12.0)
== END | disposition home or self-care (01) ==
LOC: LABWHC1 16:39
PROVIDERS: ATTEND Family Medicine
DX: I48.91 Unspecified atrial fibrillation (principal)
CPT/HCPCS: 36415; 85610

== ENCOUNTER → 2018-09-30 | Outpatient (CLI) | payer MEDICARE ==
[2018-09-30 09:58] LABS: INR 1.1 (<1.2); Prothrombin Time 10.3 sec (9.0-12.0)
== END ==
LOC: LABWHC1 09:04
PROVIDERS: ATTEND Dentist Oral and Maxillofacial Surgery
DX: D68.9 Coagulation defect, unspecified (principal)
CPT/HCPCS: 36415; 85610

== ENCOUNTER 2018-10-22 15:43 | Emergency (ER) | payer MEDICARE ==
[2018-10-22 15:49] VITALS: PULSE 88; RESP 20; TEMP 98.3
[2018-10-22] MEDS ORDERED: DIPH,PERTUS(ACELL)TETVAC-LF 0.5 ML VIAL IM ONE (16:29)
--- NOTE | 2018-10-22 16:31 | ED ---
General Adult HPI - General Chief complaint: Wound/Laceration Stated complaint: finger lac Time Seen by Provider: 10/22/18 16:24 Source: patient, family, RN notes reviewed Mode of arrival: wheelchair - History of Present Illness Initial comments: Patient is 73-year-old female who presents emergency department with complaints of left index finger laceration that occurred a little over an hour ago at home while she was cutting turkey. She is unsure of her last tetanus vaccination and would like it updated here. Patient denies any recent fever, chills, shortness of breath, chest pain, back pain, abdominal pain, nausea or vomiting, numbness or tingling, headaches or visual changes, or any other complaints. - Related Data Home Medications Medication Instructions Recorded Confirmed Labetalol [Trandate] 50 mg PO DAILY 04/09/15 06/16/18 Thyroid,Pork [[place] Thyroid] 45 mg PO DAILY 04/09/15 06/16/18 Iodine Supplement 1 tab PO DAILY 11/12/15 06/16/18 Grape Seed Oil 1 cap PO BID 04/08/18 06/16/18 Magnessium 666mg 333 mg PO DAILY 04/08/18 06/16/18 Turmeric Root Extract [Turmeric] 500 mg PO HS 04/08/18 06/16/18 Ubiquinol 100 mg PO DAILY 04/08/18 06/16/18 Warfarin Sodium 10 mg PO DAILY 04/08/18 06/16/18 Warfarin [Coumadin] 2.5 mg PO TUTHSA 04/08/18 06/16/18 Beta Glucan 20 mg PO HS 04/15/18 06/16/18 Calcitriol 0.5 mcg PO Q7D 04/15/18 06/16/18 L.acidoph,Paracasei, B.lactis 1 each PO DAILY 04/15/18 06/16/18 [Probiotic] Melatonin 6 mg PO HS 04/15/18 06/16/18 B Complex-Vit C-Vit E-Zinc [Z-Bec] 1 tab PO DAILY 05/06/18 06/16/18 Nitrofurantoin Monohyd/M-Cryst 1 cap PO BID 06/16/18 06/16/18 [Macrobid] Allergies Allergy/AdvReac Type Severity Reaction Status Date / Time lisinopril Allergy Severe Abdominal Verified 11/23/18 15:49 Pain promethazine Allergy Severe Anaphylaxis Verified 10/22/18 15:49 Sulfa (Sulfonamide Allergy Severe SEVERE Verified 10/22/18 15:49 Antibiotics) ASTHMA ATTACK azithromycin Allergy Diarrhea Verified 10/22/18 15:49 levofloxacin Allergy Unknown Verified 10/22/18 15:49 amlodipine besylate AdvReac Severe Severe Verified 10/22/18 15:49 [From Norvasc] drop in blood pressure adhesive AdvReac Unknown BLISTERS Verified 10/22/18 15:49 diazepam [From Valium] AdvReac "Stabbing Verified 10/22/18 15:49 pain in brain" meperidine HCl [From Demerol] AdvReac Nausea & Verified 10/22/18 15:49 Vomiting Review of Systems ROS Statement: Those systems with pertinent positive or pertinent negative responses have been documented in the HPI. ROS Other: All systems not noted in ROS Statement are negative. Past Medical History Past Medical History: Atrial Fibrillation, Asthma, Cancer, Diabetes Mellitus, Hyperlipidemia, Hypertension, Osteoarthritis (OA), Renal Disease, Thyroid Disorder Additional Past Medical History / Comment(s): Morbid obesity, chronic bronchial asthma, chronic atrial fibrillation, diabetes mellitus, hypertension, hyperlipidemia, hypothyroidism, lymphedema of the lower extremities, varicose veins involving lower extremities, recent sepsis secondary to enterococcal urinary tract infection, history of nephrolithiasis status post insertion of ureteral stents bilaterally, history of right pyelonephritis, history of acute kidney injury from which the patient recovers, the patient has difficulty with mobility and she moves around out of his scooter and she can only walk short distances, skin cancer that has been removed, chronic hypoxic respiratory failure maintained on oxygen. History of Any Multi-Drug Resistant Organisms: None Reported Past Surgical History: Appendectomy, Breast Surgery, Section, Cholecystectomy, Hysterectomy, Tonsillectomy Additional Past Surgical History / Comment(s): Left breast biopsy, ureteral stents bilaterally the one done on the left was in March 2016 the one on the right was from March 2018, left ureteral calculus extraction through a urethroscopy, colonoscopy, skin cancer resection from the forehead, , cholecystectomy, appendectomy, hysterectomy, tonsillectomy Past Anesthesia/Blood Transfusion Reactions: No Reported Reaction Additional Past Anesthesia/Blood Transfusion Reaction / Comment(s): WOKE UP VOMITING DURING Past Psychological History: No Psychological Hx Reported Smoking Status: Never smoker Past Alcohol Use History: None Reported Past Drug Use History: None Reported - Past Family History Brother(s) Family Medical History: AFIB, Neurologic Disorder Additional Family Medical History / Comment(s): No sisters one son healthy no daughters Father Family Medical History: Diabetes Mellitus, Deep Vein Thrombosis (DVT), Hypertension Additional Family Medical History / Comment(s): blind/neuropathy secondary to DM. Father is . Mother Family Medical History: Dementia Additional Family Medical History / Comment(s): Mother at age 88yrs. General Exam General appearance: alert, in no apparent distress Head exam: Present: atraumatic, normocephalic Eye exam: Present: normal appearance Respiratory exam: Present: normal lung sounds bilaterally Cardiovascular Exam: Present: regular rate, normal rhythm Extremities exam: Present: full ROM, normal capillary refill, other (2 cm laceration to left index finger.) Neurological exam: Present: alert, oriented X3 Psychiatric exam: Present: normal affect, normal mood Skin exam: Present: warm, dry Course Vital Signs 10/22/18 10/22/18 15:47 16:59 Temperature 98.3 F Pulse Rate 88 Respiratory 20 Rate Blood Pressure 209/100 155/91 O2 Sat by Pulse 97 Oximetry Procedures - Laceration Laceration #1 Consent Obtained: verbal consent Time Out Performed: Yes Indication: laceration Site: hand Size (cm): 2 Description: linear, clean Depth: simple, single layer Sedation/Analgesia: none Anesthetic Used: lidocaine 1%, without epi Anesthesia Technique: local infiltration Amount (mls): 5 Pre-repair: wound explored, irrigated extensively Type of Sutures: nylon Size of Sutures: 4-0 Number of Sutures: 2 Technique: simple, interrupted Patient Tolerated Procedure: well, no complications Additional Comments: Neurovascularly intact following procedure. Medical Decision Making - Medical Decision Making Tetanus was updated here. Laceration was repaired. Case discussed in detail with attending physician Dr. Sweeney. Disposition Clinical Impression: Laceration Disposition: HOME SELF-CARE Condition: Good Instructions: Care For Your Stitches (ED) Additional Instructions: Follow up with PCP in 2 days. Return to emergency department or follow-up with your PCP in 10-14 days for suture removal. Return to emergency department if any redness, swelling, drainage, or fevers as this could indicate an infection. Return to emergency department if the laceration begins bleeding again and will not stop. Is patient prescribed a controlled substance at d/c from ED?: No Referrals: Too Espinosa DO [Primary Care Provider] - 1-2 days Time of Disposition: 18:48
[2018-10-22 16:59] VITALS: BP 155/91
[2018-10-22] MEDS ORDERED: LIDOCAINE 1% INJ 10MG/ML (20 ML MDV) SQ STA (17:45)
== END 2018-10-22 18:50 | disposition home or self-care (01) ==
LOC: EC 15:43
DX: S61.211A Laceration without foreign body of left index finger without damage to nail, initial encounter (principal); J96.11 Chronic respiratory failure with hypoxia; I48.2 Chronic atrial fibrillation; I10 Essential (primary) hypertension; E03.9 Hypothyroidism, unspecified; E78.5 Hyperlipidemia, unspecified; E11.9 Type 2 diabetes mellitus without complications; Z88.1 Allergy status to other antibiotic agents; Z88.2 Allergy status to sulfonamides; Z88.5 Allergy status to narcotic agent; Z88.8 Allergy status to other drugs, medicaments and biological substances; Z79.01 Long term (current) use of anticoagulants; Z79.899 Other long term (current) drug therapy; Z87.440 Personal history of urinary (tract) infections; Z87.442 Personal history of urinary calculi; Z96.0 Presence of urogenital implants; Z85.828 Personal history of other malignant neoplasm of skin; Z98.890 Other specified postprocedural states; Z99.81 Dependence on supplemental oxygen; Z87.448 Personal history of other diseases of urinary system; Z23 Encounter for immunization; W45.8XXA Other foreign body or object entering through skin, initial encounter; Y93.G9 Activity, other involving cooking and grilling; Y92.009 Unspecified place in unspecified non-institutional (private) residence as the place of occurrence of the external cause
CPT/HCPCS: 90715; 99282; 90471; 12001; J2001

== ENCOUNTER → 2018-12-17 | Outpatient (CLI) | payer MEDICARE ==
[2018-12-17 13:08] LABS: Basophils # (A) 0.1 k/uL (0-0.2); Basophils % (A) 1 %; Eosinophils # (A) 0.2 k/uL (0-0.7); Eosinophils % (A) 2 %; HCT 47.1 % (34.0-46.0); HGB 14.6 gm/dL (11.4-16.0); Lymphocytes # (A) 1.1 k/uL (1.0-4.8); Lymphocytes % (A) 12 %; MCH 27.1 pg (25.0-35.0); MCHC 30.9 g/dL (31.0-37.0); MCV 87.6 fL (80.0-100.0); Mean Platelet Volume 7.4; Monocytes # (A) 0.3 k/uL (0-1.0); Monocytes % (A) 4 %; Neutrophils # (A) 7.3 k/uL (1.3-7.7); Neutrophils % (A) 81 %; Platelet Count 183 k/uL (150-450); RBC 5.37 m/uL (3.80-5.40); RDW 14.9 % (11.5-15.5)
[2018-12-17 13:21] LABS: Appearance,Urine Cloudy (Clear); Bacteria,Urine Moderate /hpf; Bilirubin,Urine Negative (Negative); Blood,Urine Negative (Negative); Color,Urine Light Yellow; Glucose,Urine (UA) Negative (Negative); Ketones,Urine Negative (Negative); Leukocyte Esterase,Urine Large (Negative); Nitrite,Urine Negative (Negative); Protein,Urine Negative (Negative); RBC,Urine 2 /hpf (0-5); Specific Gravity,Urine 1.003 (1.001-1.035); Squamous Epithelial Cell,Urine 1 /hpf (0-4); Urobilinogen,Urine <2.0 mg/dL (<2.0); WBC,Urine 26 /hpf (0-5)
[2018-12-17 19:44] LABS: Iron Saturation 16.22 (12.00-45.00)
[2018-12-17 19:52] LABS: Vitamin D 25 Hydroxy 33.6 ng/mL (30.0-100.0)
[2018-12-17 20:03] LABS: Anion Gap 10.3 mmol/L (4.00-12.00); Calcium 9.1 mg/dL (8.7-10.3); Carbon Dioxide 30.7 mmol/L (21.6-31.8); LDL Cholesterol,Calculated 175.2 mg/dL (0.0-131.0); Magnesium 1.4 mg/dL (1.5-2.4); Phosphorus 3.2 mg/dL (2.4-5.1); Potassium 4.3 mmol/L (3.5-5.5); Uric Acid 9.4 mg/dL (2.9-7.7); VLDL Calculation 32.8 mg/dL (5.00-40.00)
[2018-12-17 20:11] LABS: T4, Free (Free Thyroxine) 1.2 ng/dL (0.80-1.80)
[2018-12-17 20:19] LABS: Parathyroid Hormone Intact 101.2 pg/mL (14.0-72.0)
[2018-12-17 21:58] LABS: Hemoglobin A1C 5.6 % (4.0-6.0)
== END | disposition home or self-care (01) ==
LOC: LABWHC1 12:19
PROVIDERS: ATTEND Nurse Practitioner Family
DX: E55.9 Vitamin D deficiency, unspecified (principal); N18.3 Chronic kidney disease, stage 3 (moderate); D63.1 Anemia in chronic kidney disease; N25.81 Secondary hyperparathyroidism of renal origin; M10.9 Gout, unspecified; R80.9 Proteinuria, unspecified; E11.9 Type 2 diabetes mellitus without complications
CPT/HCPCS: 36415; 80048; 80061; 81001; 82306; 82728; 83036; 83540; 83550; 83735; 83970; 84100; 84439; 84443; 84550; 85025

== ENCOUNTER → 2019-05-16 | Outpatient (CLI) | payer MEDICARE ==
[2019-05-16 15:36] LABS: Basophils % (A) 0 %; Eosinophils # (A) 0.2 k/uL (0-0.7); Eosinophils % (A) 2 %; HCT 47.4 % (34.0-46.0); HGB 14.8 gm/dL (11.4-16.0); Lymphocytes # (A) 1.5 k/uL (1.0-4.8); Lymphocytes % (A) 15 %; MCH 27.7 pg (25.0-35.0); MCHC 31.2 g/dL (31.0-37.0); MCV 88.6 fL (80.0-100.0); Mean Platelet Volume 7.1; Monocytes # (A) 0.3 k/uL (0-1.0); Monocytes % (A) 3 %; Neutrophils # (A) 7.8 k/uL (1.3-7.7); Neutrophils % (A) 79 %; Platelet Count 222 k/uL (150-450); RBC 5.34 m/uL (3.80-5.40); RDW 14.5 % (11.5-15.5); WBC 9.8 k/uL (3.8-10.6)
[2019-05-16 15:42] LABS: Appearance,Urine Clear (Clear); Bacteria,Urine Many /hpf; Bilirubin,Urine Negative (Negative); Blood,Urine Negative (Negative); Color,Urine Light Yellow; Glucose,Urine (UA) Negative (Negative); Ketones,Urine Negative (Negative); Leukocyte Esterase,Urine Large (Negative); Nitrite,Urine Negative (Negative); PH, Urine 6.5 (5.0-8.0); Protein,Urine Negative (Negative); RBC,Urine 3 /hpf (0-5); Specific Gravity,Urine 1.003 (1.001-1.035); Squamous Epithelial Cell,Urine 4 /hpf (0-4); Urobilinogen,Urine <2.0 mg/dL (<2.0); WBC,Urine 51 /hpf (0-5)
[2019-05-16 23:37] LABS: Parathyroid Hormone Intact 108.6 pg/mL (14.0-72.0)
[2019-05-17 00:25] LABS: Iron Saturation 20.59 (12.00-45.00)
[2019-05-17 00:32] LABS: Vitamin D 25 Hydroxy 44.2 ng/mL (30.0-100.0)
[2019-05-17 00:36] LABS: Creatinine,Urine Random 23.1 mg/dL
[2019-05-17 00:38] LABS: African American GFR (CKD) 52.3 (60.0-200.0); Albumin 4.3 g/dL (3.80-4.90); Anion Gap 8.7 mmol/L (4.00-12.00); BUN/Creat Ratio 11.67 Ratio (12.00-20.00); Calcium 9.2 mg/dL (8.7-10.3); Carbon Dioxide 31.3 mmol/L (21.6-31.8); Magnesium 1.5 mg/dL (1.5-2.4); Potassium 4.8 mmol/L (3.5-5.5); Uric Acid 9.5 mg/dL (2.9-7.7)
[2019-05-17 01:12] LABS: Total Protein,Urine Random 7.7 mg/dL (0.0-13.5)
== END | disposition home or self-care (01) ==
LOC: LABWHC1 15:07
PROVIDERS: ATTEND Internal Medicine Nephrology
DX: N39.0 Urinary tract infection, site not specified (principal); D63.1 Anemia in chronic kidney disease; N18.3 Chronic kidney disease, stage 3 (moderate); N25.81 Secondary hyperparathyroidism of renal origin; E79.0 Hyperuricemia without signs of inflammatory arthritis and tophaceous disease; R80.9 Proteinuria, unspecified
CPT/HCPCS: 36415; 80048; 81001; 82040; 82306; 82570; 82728; 83540; 83550; 83735; 83970; 84100; 84156; 84550; 85025

== ENCOUNTER → 2019-05-20 | Outpatient (CLI) | payer MEDICARE ==
--- NOTE | 2019-05-20 15:15 | BD ---
EXAMINATION TYPE: Axial Bone Density DATE OF EXAM: 05/20/2019 COMPARISON: Baseline CLINICAL HISTORY: Postmenopausal female. Osteoporosis screening. Height: 64.5 IN Weight: 374 LBS FRAX RISK QUESTIONS: History of Fracture in Adulthood: YES RT FOOT AGE 59 Secondary Osteoporosis: 3. Menopause before 45: TOTAL HYST AGE 41 RISK FACTORS HISTORY OF: Active: NO VERY LIMITED Postmenopausal woman: AGE 41 Take estrogen and/or progesterone medications: CONTROL AGE 18-20;AGE 41-44 Lost more than 2 inches in height since high school: YES 2+ " MEDICATIONS: Thyroid Medications: YES Which medication: ARMOUR How Lon+ YEARS Additional Medications: VIT D, HIGH BLOOD PRESSURE, ARMOUR, WARFARIN, MAGNESIUM, IRON, IODINE, FREEMAN JUICE, MELATONIN, VIT COQ10, VIT B12, MULTI B COMPLEX, IMMUNOMODULATOR, PRO BIOTIC EXAM MEASUREMENTS: Bone mineral densitometry was performed using the [employer] System. Bone mineral density as measured about the Lumbar spine is: ----- L1-L4(G/cm2): 1.410 T Score Values are as follows: ----- L2: 1.6 ----- L3: 1.8 ----- L4: 2.1 ----- L1-L4: 1.9 Bone mineral density BASELINE Bone mineral density about the R hip (g/cm2): 0.752 Bone mineral density about the L hip (g/cm2): 0.699 T Score values are as follows: -----R Neck: -2.1 -----L Neck: -2.4 -----R Total: -0.6 -----L Total: -1.7 Bone mineral density BASELINE IMPRESSION: Osteopenia (T Score between -2.5 and -1) with regards to the left femur, borderline osteoporosis. There is slightly increased risk of fracture and the patient may be considered for treatment. Re-Screen 2-5 years. NOTE: T-SCORE=SD OF THE YOUNG ADULT MEAN.
== END | disposition home or self-care (01) ==
LOC: RADBDWWP 14:05
PROVIDERS: ATTEND Family Medicine
DX: M85.88 Other specified disorders of bone density and structure, other site (principal); Z78.0 Asymptomatic menopausal state
CPT/HCPCS: 77080

== ENCOUNTER → 2019-06-20 | Outpatient (CLI) | payer MEDICARE ==
--- NOTE | 2019-06-20 15:42 | US ---
EXAMINATION TYPE: US renals and bladder DATE OF EXAM: 06/20/2019 COMPARISON: CLINICAL HISTORY: N18.3 CKD stage 3. CKD, No pain, hx renal stones EXAM MEASUREMENTS: Right Kidney: 10.0 x 5.1 x 5.2 cm Left Kidney: 10.5 x 4.9 x 4.6 cm Limited visualization due to patient body habitus Right Kidney: No hydronephrosis or masses seen Left Kidney: Lateral upper echogenic nonshadowing focus seen - 0.7 cm. Lower nonshadowing echogenic focus- 1.1 cm. Lower pole lateral cystic appearing lesion = 1.0 x 1.0 x 0.8 cm Bladder: mildly distended, suboptimal visualization Bilateral Jets not seen There is no evidence for hydronephrosis at this point in time. Left-sided nephrolithiasis noted. Simp le cyst lower pole left kidney. The urinary bladder is anechoic. Suboptimal bladder visualization. IMPRESSION: Nonobstructing left-sided nephrolithiasis. Cyst left kidney.
== END | disposition home or self-care (01) ==
LOC: RADUSWWP 13:59
PROVIDERS: ATTEND Internal Medicine Nephrology
DX: N20.0 Calculus of kidney (principal); N28.1 Cyst of kidney, acquired; N18.3 Chronic kidney disease, stage 3 (moderate)
CPT/HCPCS: 76770

== ENCOUNTER → 2019-09-15 | Outpatient (CLI) | payer MEDICARE ==
[2019-09-15 15:38] LABS: Basophils # (A) 0.1 k/uL (0-0.2); Basophils % (A) 1 %; Eosinophils # (A) 0.1 k/uL (0-0.7); Eosinophils % (A) 2 %; HCT 47.2 % (34.0-46.0); HGB 15.4 gm/dL (11.4-16.0); Lymphocytes # (A) 1.3 k/uL (1.0-4.8); Lymphocytes % (A) 14 %; MCH 29.5 pg (25.0-35.0); MCHC 32.7 g/dL (31.0-37.0); MCV 90.2 fL (80.0-100.0); Mean Platelet Volume 6.7; Monocytes # (A) 0.3 k/uL (0-1.0); Monocytes % (A) 3 %; Neutrophils # (A) 7.5 k/uL (1.3-7.7); Neutrophils % (A) 80 %; Platelet Count 198 k/uL (150-450); RBC 5.23 m/uL (3.80-5.40); RDW 13.7 % (11.5-15.5); WBC 9.4 k/uL (3.8-10.6)
[2019-09-15 15:39] LABS: Appearance,Urine Cloudy (Clear); Bacteria,Urine Many /hpf; Bilirubin,Urine Negative (Negative); Blood,Urine Trace (Negative); Color,Urine Light Yellow; Glucose,Urine (UA) Negative (Negative); Ketones,Urine Negative (Negative); Leukocyte Esterase,Urine Large (Negative); Mucus,Urine Rare /hpf; Nitrite,Urine Negative (Negative); PH, Urine 6.5 (5.0-8.0); Protein,Urine Negative (Negative); RBC,Urine 4 /hpf (0-5); Specific Gravity,Urine 1.007 (1.001-1.035); Squamous Epithelial Cell,Urine 2 /hpf (0-4); Urobilinogen,Urine <2.0 mg/dL (<2.0); WBC,Urine 37 /hpf (0-5)
[2019-09-15 19:39] LABS: Iron Saturation 26.69 (12.00-45.00)
[2019-09-15 19:45] LABS: African American GFR (CKD) 58.1 (60.0-200.0); Albumin 4.5 g/dL (3.80-4.90); Anion Gap 9.2 mmol/L (4.00-12.00); BUN/Creat Ratio 14.55 Ratio (12.00-20.00); Carbon Dioxide 31.8 mmol/L (21.6-31.8); Magnesium 1.5 mg/dL (1.5-2.4); Phosphorus 3.5 mg/dL (2.4-5.1); Potassium 4.9 mmol/L (3.5-5.5); Uric Acid 6.6 mg/dL (2.9-7.7)
[2019-09-15 19:47] LABS: Ferritin 195.5 ng/mL (10.0-291.0); Vitamin D 25 Hydroxy 44.9 ng/mL (30.0-100.0)
[2019-09-15 21:30] LABS: Creatinine,Urine Random 51.8 mg/dL
[2019-09-15 21:34] LABS: Total Protein,Urine Random 9.4 mg/dL (0.0-13.5)
== END | disposition home or self-care (01) ==
LOC: LABWHC1 14:26
PROVIDERS: ATTEND Nurse Practitioner Family
DX: N18.3 Chronic kidney disease, stage 3 (moderate) (principal); N25.81 Secondary hyperparathyroidism of renal origin; M10.9 Gout, unspecified; E55.9 Vitamin D deficiency, unspecified; N39.0 Urinary tract infection, site not specified; D63.1 Anemia in chronic kidney disease
CPT/HCPCS: 36415; 80048; 81001; 82040; 82306; 82570; 82728; 83540; 83550; 83735; 83970; 84100; 84156; 84550; 85025

== ENCOUNTER → 2020-02-01 | Outpatient (CLI) | payer MEDICARE ==
[2020-02-01 15:30] LABS: Basophils % (A) 0 %; Eosinophils # (A) 0.2 k/uL (0-0.7); Eosinophils % (A) 2 %; HCT 46.4 % (34.0-46.0); HGB 15.2 gm/dL (11.4-16.0); Lymphocytes # (A) 1.4 k/uL (1.0-4.8); Lymphocytes % (A) 13 %; MCH 29.3 pg (25.0-35.0); MCHC 32.7 g/dL (31.0-37.0); MCV 89.6 fL (80.0-100.0); Mean Platelet Volume 7.8; Monocytes # (A) 0.4 k/uL (0-1.0); Monocytes % (A) 3 %; Neutrophils # (A) 8.2 k/uL (1.3-7.7); Neutrophils % (A) 80 %; Platelet Count 193 k/uL (150-450); RBC 5.18 m/uL (3.80-5.40); RDW 13.4 % (11.5-15.5); WBC 10.3 k/uL (3.8-10.6)
[2020-02-01 16:04] LABS: Appearance,Urine Cloudy (Clear); Bacteria,Urine Many /hpf; Bilirubin,Urine Negative (Negative); Blood,Urine Negative (Negative); Color,Urine Light Yellow; Glucose,Urine (UA) Negative (Negative); Ketones,Urine Negative (Negative); Leukocyte Esterase,Urine Large (Negative); Mucus,Urine Rare /hpf; Nitrite,Urine Negative (Negative); PH, Urine 6.5 (5.0-8.0); Protein,Urine Negative (Negative); RBC,Urine 1 /hpf (0-5); Specific Gravity,Urine 1.005 (1.001-1.035); Squamous Epithelial Cell,Urine 3 /hpf (0-4); Urobilinogen,Urine <2.0 mg/dL (<2.0); WBC,Urine 54 /hpf (0-5)
[2020-02-01 19:09] LABS: % Iron Saturation 21.21 (12.00-45.00); African American GFR (CKD) 52.3 (60.0-200.0); Albumin 4.3 g/dL (3.80-4.90); Anion Gap 9.1 mmol/L (4.00-12.00); BUN/Creat Ratio 10.83 Ratio (12.00-20.00); Calcium 9.5 mg/dL (8.7-10.3); Carbon Dioxide 31.9 mmol/L (21.6-31.8); Magnesium 1.8 mg/dL (1.5-2.4); Non-African American GFR(CKD) 45.1 (60.0-200.0); Phosphorus 3.2 mg/dL (2.4-5.1); Potassium 4.5 mmol/L (3.5-5.5); Uric Acid 8.2 mg/dL (2.9-7.7)
[2020-02-01 19:20] LABS: Ferritin 191.1 ng/mL (10.0-291.0)
[2020-02-02 04:54] LABS: Creatinine,Urine Random 53.4 mg/dL
== END | disposition home or self-care (01) ==
LOC: LABWHC1 14:17
PROVIDERS: ATTEND Nurse Practitioner Family
DX: N13.8 Other obstructive and reflux uropathy (principal); N25.81 Secondary hyperparathyroidism of renal origin; N39.0 Urinary tract infection, site not specified; D64.9 Anemia, unspecified; E79.0 Hyperuricemia without signs of inflammatory arthritis and tophaceous disease
CPT/HCPCS: 36415; 80048; 81001; 82040; 82306; 82570; 82728; 83540; 83550; 83735; 83970; 84100; 84156; 84550; 85025

== ENCOUNTER → 2020-08-15 | Outpatient (CLI) | payer MEDICARE ==
[2020-08-15 16:07] LABS: Basophils % (A) 1 %; Eosinophils # (A) 0.2 k/uL (0-0.7); Eosinophils % (A) 2 %; HCT 47.1 % (34.0-46.0); HGB 15.1 gm/dL (11.4-16.0); Lymphocytes # (A) 1.2 k/uL (1.0-4.8); Lymphocytes % (A) 13 %; MCH 28.6 pg (25.0-35.0); MCHC 32.1 g/dL (31.0-37.0); MCV 89.3 fL (80.0-100.0); Mean Platelet Volume 7.8; Monocytes # (A) 0.3 k/uL (0-1.0); Monocytes % (A) 4 %; Neutrophils # (A) 6.9 k/uL (1.3-7.7); Neutrophils % (A) 80 %; Platelet Count 196 k/uL (150-450); RBC 5.28 m/uL (3.80-5.40); RDW 13.4 % (11.5-15.5); WBC 8.7 k/uL (3.8-10.6)
[2020-08-15 16:17] LABS: Protein/Creatinine Ratio,Urine 0.463
[2020-08-15 16:26] LABS: Appearance,Urine Cloudy (Clear); Bacteria,Urine Many /hpf; Bilirubin,Urine Negative (Negative); Blood,Urine Negative (Negative); Color,Urine Light Yellow; Glucose,Urine (UA) Negative (Negative); Ketones,Urine Negative (Negative); Leukocyte Esterase,Urine Large (Negative); Mucus,Urine Rare /hpf; Nitrite,Urine Negative (Negative); PH, Urine 6.5 (5.0-8.0); Protein,Urine Negative (Negative); RBC,Urine 15 /hpf (0-5); Specific Gravity,Urine 1.005 (1.001-1.035); Squamous Epithelial Cell,Urine 2 /hpf (0-4); Urobilinogen,Urine <2.0 mg/dL (<2.0); WBC,Urine 118 /hpf (0-5)
[2020-08-16 01:34] LABS: % Iron Saturation 17.76 (12.00-45.00); African American GFR (CKD) 57.7 (60.0-200.0); Albumin 4.3 g/dL (3.80-4.90); Anion Gap 11.7 mmol/L (4.00-12.00); BUN/Creat Ratio 13.64 Ratio (12.00-20.00); Calcium 9.2 mg/dL (8.7-10.3); Carbon Dioxide 29.3 mmol/L (21.6-31.8); Magnesium 1.5 mg/dL (1.5-2.4); Non-African American GFR(CKD) 49.8 (60.0-200.0); Phosphorus 3.5 mg/dL (2.4-5.1); Potassium 4.3 mmol/L (3.5-5.5); Uric Acid 10.4 mg/dL (2.9-7.7)
[2020-08-16 01:42] LABS: Ferritin 207.9 ng/mL (10.0-291.0)
== END | disposition home or self-care (01) ==
LOC: LABWHC1 15:16
PROVIDERS: ATTEND Nurse Practitioner Family
DX: N18.3 Chronic kidney disease, stage 3 (moderate) (principal); D63.1 Anemia in chronic kidney disease; N25.81 Secondary hyperparathyroidism of renal origin; E79.0 Hyperuricemia without signs of inflammatory arthritis and tophaceous disease; N39.0 Urinary tract infection, site not specified; R80.9 Proteinuria, unspecified
CPT/HCPCS: 36415; 80048; 81001; 82040; 82306; 82570; 82728; 83540; 83550; 83735; 83970; 84100; 84156; 84550; 85025; 87086

== ENCOUNTER 2020-09-10 16:20 | Emergency (ER) | payer MEDICARE ==
[2020-09-10 16:26] VITALS: RESP 18; TEMP 100.4
[2020-09-10] MEDS ORDERED: SODIUM CHLORIDE 0.9% 500 ML 500 ML IV STA (16:54)
[2020-09-10 17:47] LABS: Appearance,Urine Cloudy (Clear); Bacteria,Urine Rare /hpf; Basophils # (A) 0.2 k/uL (0-0.2); Basophils % (A) 1 %; Bilirubin,Urine Negative (Negative); Blood,Urine Negative (Negative); Color,Urine Yellow; Eosinophils # (A) 0.3 k/uL (0-0.7); Eosinophils % (A) 2 %; Glucose,Urine (UA) Negative (Negative); HGB 16.4 gm/dL (11.4-16.0); Ketones,Urine Negative (Negative); Leukocyte Esterase,Urine Large (Negative); Lymphocytes # (A) 0.9 k/uL (1.0-4.8); Lymphocytes % (A) 6 %; MCH 29.2 pg (25.0-35.0); MCHC 32.2 g/dL (31.0-37.0); MCV 90.5 fL (80.0-100.0); Monocytes # (A) 0.5 k/uL (0-1.0); Monocytes % (A) 3 %; Neutrophils # (A) 13.8 k/uL (1.3-7.7); Neutrophils % (A) 87 %; Nitrite,Urine Negative (Negative); PH, Urine 6.5 (5.0-8.0); Platelet Count 210 k/uL (150-450); Protein,Urine Negative (Negative); RBC 5.64 m/uL (3.80-5.40); RBC,Urine <1 /hpf (0-5); RDW 13.3 % (11.5-15.5); Specific Gravity,Urine 1.007 (1.001-1.035); Squamous Epithelial Cell,Urine 5 /hpf (0-4); Urobilinogen,Urine <2.0 mg/dL (<2.0); WBC 15.8 k/uL (3.8-10.6); WBC,Urine 9 /hpf (0-5)
[2020-09-10 17:51] LABS: Albumin 4.5 g/dL (3.5-5.0); Calcium 9.7 mg/dL (8.4-10.2); Potassium 5.2 mmol/L (3.5-5.1); Total Bilirubin 3.8 mg/dL (0.2-1.3); Total Protein 7.7 g/dL (6.3-8.2)
[2020-09-10] MEDS ORDERED: ACETAMINOPHEN TAB 500 MG TAB PO STA (18:24)
--- NOTE | 2020-09-10 18:28 | ED ---
Abdominal Pain HPI - General Chief Complaint: Abdominal Pain Stated Complaint: abd pain, fever Time Seen by Provider: 09/10/20 16:29 Source: patient Mode of arrival: ambulatory Limitations: no limitations - History of Present Illness Initial Comments: Patient is a 75-year-old female presenting to the emergency Department with complaints of left-sided abdominal pain that has been increasing since yesterday. Patient states she has a history of diverticulitis and this feels similar. She describes the pain as on the left side of her abdomen with some radiation into the left lower quadrant. Patient states she felt like she had a fever yesterday and again today. Patient states she was just recently treated for UTI with Macrobid and states her symptoms have cleared until this started yesterday. She does admit to some mild diarrhea, no nausea or vomiting. History of cholecystectomy, appendectomy, hysterectomy, C-sections. She's been having regular bowel movements. She has no further complaints at this time. Upon arrival to the ER, patient is febrile to 100.4, blood pressure is elevated at 180/102. - Related Data Home Medications Medication Instructions Recorded Confirmed Labetalol [Trandate] 50 mg PO DAILY 04/09/15 06/16/18 Thyroid,Pork [Cabery Thyroid] 45 mg PO DAILY 04/09/15 06/16/18 Iodine Supplement 1 tab PO DAILY 11/12/15 06/16/18 Grape Seed Oil 1 cap PO BID 04/08/18 06/16/18 Magnessium 666mg 333 mg PO DAILY 04/08/18 06/16/18 Turmeric Root Extract [Turmeric] 500 mg PO HS 04/08/18 06/16/18 Ubiquinol [Co-Veratrol] 100 mg PO DAILY 04/08/18 06/16/18 Warfarin Sodium 10 mg PO DAILY 04/08/18 06/16/18 Warfarin [Coumadin] 2.5 mg PO TUTHSA 04/08/18 06/16/18 Beta Glucan 20 mg PO HS 04/15/18 06/16/18 L.acidoph,Paracasei, B.lactis 1 each PO DAILY 04/15/18 06/16/18 [Probiotic] Melatonin 6 mg PO HS 04/15/18 06/16/18 calcitrioL [Calcitriol] 0.5 mcg PO Q7D 04/15/18 06/16/18 B Complex-Vit C-Vit E-Zinc [Z-Bec] 1 tab PO DAILY 05/06/18 06/16/18 Nitrofurantoin Monohyd/M-Cryst 1 cap PO BID 06/16/18 06/16/18 [Macrobid] Previous Rx's Medication Instructions Recorded Amoxicillin/Potassium Clav 1 tab PO BID 7 Days #14 tab 09/10/20 [Augmentin 875-125 Tablet] Allergies Allergy/AdvReac Type Severity Reaction Status Date / Time lisinopril Allergy Severe Abdominal Verified 09/10/20 16:26 Pain promethazine Allergy Severe Anaphylaxis Verified 09/10/20 16:26 Sulfa (Sulfonamide Allergy Severe SEVERE Verified 09/10/20 16:26 Antibiotics) ASTHMA ATTACK azithromycin Allergy Diarrhea Verified 09/10/20 16:26 levofloxacin Allergy Unknown Verified 09/10/20 16:26 amlodipine besylate AdvReac Severe Severe Verified 09/10/20 16:26 [From Norvasc] drop in blood pressure adhesive AdvReac Unknown BLISTERS Verified 09/10/20 16:26 diazepam [From Valium] AdvReac "Stabbing Verified 09/10/20 16:26 pain in brain" meperidine HCl [From Demerol] AdvReac Nausea & Verified 09/10/20 16:26 Vomiting Review of Systems ROS Statement: Those systems with pertinent positive or pertinent negative responses have been documented in the HPI. ROS Other: All systems not noted in ROS Statement are negative. Past Medical History Past Medical History: Atrial Fibrillation, Asthma, Cancer, Diabetes Mellitus, Hyperlipidemia, Hypertension, Osteoarthritis (OA), Renal Disease, Thyroid Disorder Additional Past Medical History / Comment(s): Morbid obesity, chronic bronchial asthma, chronic atrial fibrillation, diabetes mellitus, hypertension, hyperlipidemia, hypothyroidism, lymphedema of the lower extremities, varicose veins involving lower extremities, recent sepsis secondary to enterococcal urinary tract infection, history of nephrolithiasis status post insertion of ureteral stents bilaterally, history of right pyelonephritis, history of acute kidney injury from which the patient recovers, the patient has difficulty with mobility and she moves around out of his scooter and she can only walk short distances, skin cancer that has been removed, chronic hypoxic respiratory failure maintained on oxygen. History of Any Multi-Drug Resistant Organisms: None Reported Past Surgical History: Appendectomy, Breast Surgery, Section, Cholecystectomy, Hysterectomy, Tonsillectomy Additional Past Surgical History / Comment(s): Left breast biopsy, ureteral stents bilaterally the one done on the left was in March 2016 the one on the right was from March 2018, left ureteral calculus extraction through a urethroscopy, colonoscopy, skin cancer resection from the forehead, , cholecystectomy, appendectomy, hysterectomy, tonsillectomy Past Anesthesia/Blood Transfusion Reactions: No Reported Reaction Additional Past Anesthesia/Blood Transfusion Reaction / Comment(s): WOKE UP VOMITING DURING Past Psychological History: No Psychological Hx Reported Smoking Status: Never smoker Past Alcohol Use History: None Reported Past Drug Use History: None Reported - Past Family History Brother(s) Family Medical History: AFIB, Neurologic Disorder Additional Family Medical History / Comment(s): No sisters one son healthy no daughters Father Family Medical History: Diabetes Mellitus, Deep Vein Thrombosis (DVT), Hypertension Additional Family Medical History / Comment(s): blind/neuropathy secondary to DM. Father is . Mother Family Medical History: Dementia Additional Family Medical History / Comment(s): Mother at age 88yrs. General Exam - General Exam Comments Initial Comments: GENERAL: Patient is nontoxic and in no acute distress. HEAD: Atraumatic, normocephalic. EYES: Pupils equal round and reactive to light, extraocular movements intact, sclera anicteric, conjunctiva are normal. Eyelids were unremarkable. ENT: TMs normal, nares patent, oropharynx clear without exudates. Moist mucous membranes. NECK: Normal range of motion, supple without lymphadenopathy or JVD. LUNGS: Unlabored respirations. Breath sounds clear to auscultation bilaterally and equal. No wheezes rales or rhonchi. HEART: Regular rate and rhythm without murmurs, rubs or gallops. ABDOMEN: Soft, nontender, normoactive bowel sounds. No guarding, no rebound. No masses appreciated. : Deferred MUSCULOSKELETAL: Normal extremities with adequate strength and normal range of motion. No clubbing or cyanosis. Bilateral lymphedema present. NEUROLOGICAL: Patient is alert and oriented x 3. Motor and sensory are also intact. Cranial nerves II through XII grossly intact. Symmetrical smile. Normal speech. PSYCH: Normal mood, normal affect. SKIN: Warm, Dry, normal turgor, no rashes or lesions noted. Limitations: no limitations Course Vital Signs 09/10/20 09/10/20 16:21 18:41 Temperature 100.4 F H Pulse Rate 93 94 Respiratory 18 18 Rate Blood Pressure 180/102 173/97 O2 Sat by Pulse 94 L 92 L Oximetry Medical Decision Making - Medical Decision Making Patient is a 75-year-old female here for left lower quadrant pain 2 days. She does have history of diverticulitis and feels like it is similar. She did arrive slightly febrile at 100.4. She states her pain has subsided over the past couple hours but was in the left lower quadrant. Labs reveal leukocytosis of 15.8, potassium slightly elevated at 5.2, lactic is 1.8, bilirubin is 3.8. CT of the abdomen shows evidence of sigmoid diverticulosis with diverticulitis of the proximal sigmoid colon. I did give patient some fluids as well as some Tylenol for her fever. She has been comfortable in the ER. She states her pain is very minimal. Patient will be started on Augmentin, first dose given in the ER. I recommend continuing Tylenol for fever/pain control. Continue with liquid diet for the next 24-48 hours. Patient is agreement with this plan of care. She is stable for discharge. She should follow up with her PCP. Return parameters were discussed with the patient she verbalized understanding. Case discussed with Dr. Valle. - Lab Data Result diagrams: 09/10/20 17:24 09/10/20 17:24 Lab Results 09/10/20 09/10/20 09/10/20 Range/Units 17:24 17:24 17:24 WBC 15.8 H (3.8-10.6) k/uL RBC 5.64 H (3.80-5.40) m/uL Hgb 16.4 H (11.4-16.0) gm/dL Hct 51.0 H (34.0-46.0) % MCV 90.5 (80.0-100.0) fL MCH 29.2 (25.0-35.0) pg MCHC 32.2 (31.0-37.0) g/dL RDW 13.3 (11.5-15.5) % Plt Count 210 (150-450) k/uL Neutrophils % 87 % Lymphocytes % 6 % Monocytes % 3 % Eosinophils % 2 % Basophils % 1 % Neutrophils # 13.8 H (1.3-7.7) k/uL Lymphocytes # 0.9 L (1.0-4.8) k/uL Monocytes # 0.5 (0-1.0) k/uL Eosinophils # 0.3 (0-0.7) k/uL Basophils # 0.2 (0-0.2) k/uL Sodium 137 (137-145) mmol/L Potassium 5.2 H (3.5-5.1) mmol/L Chloride 97 L (98-107) mmol/L Carbon Dioxide 31 H (22-30) mmol/L Anion Gap 9 mmol/L BUN 15 (7-17) mg/dL Creatinine 1.12 H (0.52-1.04) mg/dL Est GFR (CKD-EPI)AfAm 56 (>60 ml/min/1.73 sqM) Est GFR (CKD-EPI)NonAf 49 (>60 ml/min/1.73 sqM) Glucose 120 H (74-99) mg/dL Plasma Lactic Acid Marcial (0.7-2.0) mmol/L Calcium 9.7 (8.4-10.2) mg/dL Total Bilirubin 3.8 H (0.2-1.3) mg/dL AST 28 (14-36) U/L ALT 20 (4-34) U/L Alkaline Phosphatase 94 (38-126) U/L Total Protein 7.7 (6.3-8.2) g/dL Albumin 4.5 (3.5-5.0) g/dL Lipase 38 (23-300) U/L Urine Color Yellow Urine Appearance Cloudy H (Clear) Urine pH 6.5 (5.0-8.0) Ur Specific [place] 1.007 (1.001-1.035) Urine Protein Negative (Negative) Urine Glucose (UA) Negative (Negative) Urine Ketones Negative (Negative) Urine Blood Negative (Negative) Urine Nitrite Negative (Negative) Urine Bilirubin Negative (Negative) Urine Urobilinogen <2.0 (<2.0) mg/dL Ur Leukocyte Esterase Large H (Negative) Urine RBC <1 (0-5) /hpf Urine WBC 9 H (0-5) /hpf Ur Squamous Epith Cells 5 H (0-4) /hpf Urine Bacteria Rare H (None) /hpf 09/10/20 Range/Units 17:24 WBC (3.8-10.6) k/uL RBC (3.80-5.40) m/uL Hgb (11.4-16.0) gm/dL Hct (34.0-46.0) % MCV (80.0-100.0) fL MCH (25.0-35.0) pg MCHC (31.0-37.0) g/dL RDW (11.5-15.5) % Plt Count (150-450) k/uL Neutrophils % % Lymphocytes % % Monocytes % % Eosinophils % % Basophils % % Neutrophils # (1.3-7.7) k/uL Lymphocytes # (1.0-4.8) k/uL Monocytes # (0-1.0) k/uL Eosinophils # (0-0.7) k/uL Basophils # (0-0.2) k/uL Sodium (137-145) mmol/L Potassium (3.5-5.1) mmol/L Chloride (98-107) mmol/L Carbon Dioxide (22-30) mmol/L Anion Gap mmol/L BUN (7-17) mg/dL Creatinine (0.52-1.04) mg/dL Est GFR (CKD-EPI)AfAm (>60 ml/min/1.73 sqM) Est GFR (CKD-EPI)NonAf (>60 ml/min/1.73 sqM) Glucose (74-99) mg/dL Plasma Lactic Acid Marcial 1.8 (0.7-2.0) mmol/L Calcium (8.4-10.2) mg/dL Total Bilirubin (0.2-1.3) mg/dL AST (14-36) U/L ALT (4-34) U/L Alkaline Phosphatase (38-126) U/L Total Protein (6.3-8.2) g/dL Albumin (3.5-5.0) g/dL Lipase (23-300) U/L Urine Color Urine Appearance (Clear) Urine pH (5.0-8.0) Ur Specific [place] (1.001-1.035) Urine Protein (Negative) Urine Glucose (UA) (Negative) Urine Ketones (Negative) Urine Blood (Negative) Urine Nitrite (Negative) Urine Bilirubin (Negative) Urine Urobilinogen (<2.0) mg/dL Ur Leukocyte Esterase (Negative) Urine RBC (0-5) /hpf Urine WBC (0-5) /hpf Ur Squamous Epith Cells (0-4) /hpf Urine Bacteria (None) /hpf Disposition Clinical Impression: Diverticulitis, Abdominal pain Disposition: HOME SELF-CARE Condition: Stable Instructions (If sedation given, give patient instructions): Diverticulitis (ED) Additional Instructions: Please return to the Emergency Department if symptoms worsen or any other concerns. Computed tomography scan today shows evidence of diverticulitis. Take antibiotic as prescribed. Continue with liquid diet for the next 24-48 hours. Recommend Tylenol for abdominal pain and/or fever. Follow-up with PCP. Prescriptions: Amoxicillin/Potassium Clav [Augmentin 875-125 Tablet] 1 tab PO BID 7 Days #14 tab Is patient prescribed a controlled substance at d/c from ED?: No Referrals: Too Espinosa DO [Primary Care Provider] - 1-2 days
[2020-09-10 18:42] VITALS: BP 173/97; PULSE 94
--- NOTE | 2020-09-10 18:49 | CT ---
EXAMINATION TYPE: CT abdomen pelvis wo con DATE OF EXAM: 09/10/2020 COMPARISON: 04/08/2018 HISTORY: Left lower quadrant pain. CT DLP: 2118.2 mGycm Automated exposure control for dose reduction was used. Images were obtained from the diaphragm to the floor the pelvis with no contrast. FINDINGS: Lung bases are clear of consolidation. There is no pleural effusion. Heart is enlarged. There is no p ericardial effusion. Liver shows no focal defect. There are clips from cholecystectomy. Spleen is int act. Spleen measures 13 cm. The bile ducts are not dilated. There is no evidence of pancreatic mass. Stomach is intact. There is no adrenal mass. Kidneys have normal size. There are bilateral multiple renal calcifications that measure up to 8 mm. There is 5 mm calcification in the deep and right renal pelvis. The ureters are not dilated. The bladder distends smoothly. There is no inguinal hernia. There is no definite fr ee fluid in the pelvis. Appendix appears normal. There is extensive fat stranding around the sigmoid colon with numerous sigmoid diverticula. This is seen at the junction of the descending colon and proximal sigmoid colon. There is 5 cm rounded fat-containing umbilical hernia. There is no evidence of a bowel obstruction. There is no ascites or free air. Lumbar vertebra show a levoscoliosis. There is multilevel spondylotic changes. Bony pelvis is intact. The hip joints are int act. IMPRESSION: Sigmoid diverticulosis with diverticulitis of the proximal sigmoid colon is a change compared to old exam. Fat-containing umbilical hernia. Multiple nonobstructing bilateral renal calculi.
[2020-09-10] MEDS: AMOXIC-POT CLAV 875-125MG 1 EACH TAB PO STA ×2 (19:19→19:25)
[2020-09-10] MEDS ORDERED: AMOXIC-POT CLAV 875-125MG 1 EACH TAB PO STA (19:21)
== END 2020-09-10 19:28 | disposition home or self-care (01) ==
LOC: EC 16:20
DX: K57.32 Diverticulitis of large intestine without perforation or abscess without bleeding (principal); K57.30 Diverticulosis of large intestine without perforation or abscess without bleeding; J45.909 Unspecified asthma, uncomplicated; E11.9 Type 2 diabetes mellitus without complications; I10 Essential (primary) hypertension; E78.5 Hyperlipidemia, unspecified; E03.9 Hypothyroidism, unspecified; I48.20 Chronic atrial fibrillation, unspecified; E66.01 Morbid (severe) obesity due to excess calories; Z68.44 Body mass index [BMI] 60.0-69.9, adult; Z79.01 Long term (current) use of anticoagulants; Z79.890 Hormone replacement therapy; Z79.899 Other long term (current) drug therapy; Z88.2 Allergy status to sulfonamides; Z88.1 Allergy status to other antibiotic agents; Z88.5 Allergy status to narcotic agent; Z88.8 Allergy status to other drugs, medicaments and biological substances; Z91.048 Other nonmedicinal substance allergy status; Z85.828 Personal history of other malignant neoplasm of skin; Z90.49 Acquired absence of other specified parts of digestive tract; Z90.89 Acquired absence of other organs; Z90.710 Acquired absence of both cervix and uterus
CPT/HCPCS: 36415; 74176; 80053; 81001; 83605; 83690; 85025; 96360; 99284

== ENCOUNTER → 2020-12-20 | Outpatient (CLI) | payer MEDICARE ==
[2020-12-20 15:13] LABS: Basophils # (A) 0.1 k/uL (0-0.2); Basophils % (A) 1 %; Eosinophils # (A) 0.2 k/uL (0-0.7); Eosinophils % (A) 2 %; HCT 44.6 % (34.0-46.0); HGB 14.9 gm/dL (11.4-16.0); Lymphocytes # (A) 1.1 k/uL (1.0-4.8); Lymphocytes % (A) 12 %; MCHC 33.4 g/dL (31.0-37.0); Monocytes # (A) 0.4 k/uL (0-1.0); Monocytes % (A) 4 %; Neutrophils # (A) 7.3 k/uL (1.3-7.7); Neutrophils % (A) 80 %; Platelet Count 191 k/uL (150-450); RBC 4.95 m/uL (3.80-5.40); RDW 14.1 % (11.5-15.5); WBC 9.1 k/uL (3.8-10.6)
[2020-12-20 15:15] LABS: Appearance,Urine Clear (Clear); Bacteria,Urine Few /hpf; Bilirubin,Urine Negative (Negative); Blood,Urine Negative (Negative); Color,Urine Colorless; Glucose,Urine (UA) Negative (Negative); Ketones,Urine Negative (Negative); Leukocyte Esterase,Urine Large (Negative); Mucus,Urine Rare /hpf; Nitrite,Urine Negative (Negative); Protein,Urine Negative (Negative); RBC,Urine 1 /hpf (0-5); Specific Gravity,Urine 1.005 (1.001-1.035); Squamous Epithelial Cell,Urine 2 /hpf (0-4); Urobilinogen,Urine <2.0 mg/dL (<2.0); WBC,Urine 13 /hpf (0-5)
[2020-12-21 04:27] LABS: % Iron Saturation 20.27 (12.00-45.00); African American GFR (CKD) 57.7 (60.0-200.0); Albumin 4.6 g/dL (3.80-4.90); Anion Gap 15.7 mmol/L (4.00-12.00); BUN/Creat Ratio 15.45 Ratio (12.00-20.00); Calcium 9.8 mg/dL (8.7-10.3); Carbon Dioxide 27.3 mmol/L (21.6-31.8); Magnesium 1.7 mg/dL (1.5-2.4); Non-African American GFR(CKD) 49.8 (60.0-200.0); Phosphorus 3.3 mg/dL (2.4-5.1); Potassium 4.7 mmol/L (3.5-5.5); Uric Acid 9.9 mg/dL (2.9-7.7)
[2020-12-21 04:35] LABS: Ferritin 251.7 ng/mL (10.0-291.0)
[2020-12-21 04:54] LABS: Creatinine,Urine Random 27.4 mg/dL
[2020-12-21 04:58] LABS: Total Protein,Urine Random 6.9 mg/dL (0.0-13.5)
== END | disposition home or self-care (01) ==
LOC: LABWHC1 14:43
PROVIDERS: ATTEND Internal Medicine Nephrology
DX: N25.81 Secondary hyperparathyroidism of renal origin (principal); N39.9 Disorder of urinary system, unspecified; E55.9 Vitamin D deficiency, unspecified; R80.9 Proteinuria, unspecified; M10.9 Gout, unspecified; N18.30 Chronic kidney disease, stage 3 unspecified; D63.1 Anemia in chronic kidney disease
CPT/HCPCS: 36415; 80048; 81001; 82040; 82306; 82570; 82728; 83540; 83550; 83735; 83970; 84100; 84156; 84550; 85025; 87086

== ENCOUNTER → 2021-04-30 | Outpatient (CLI) | payer MEDICARE ==
[2021-04-30 15:44] LABS: Appearance,Urine Clear (Clear); Bacteria,Urine Moderate /hpf; Bilirubin,Urine Negative (Negative); Blood,Urine Negative (Negative); Color,Urine Light Yellow; Glucose,Urine (UA) Negative (Negative); Ketones,Urine Negative (Negative); Leukocyte Esterase,Urine Large (Negative); Nitrite,Urine Negative (Negative); PH, Urine 6.5 (5.0-8.0); Protein,Urine Negative (Negative); RBC,Urine 1 /hpf (0-5); Specific Gravity,Urine 1.004 (1.001-1.035); Squamous Epithelial Cell,Urine <1 /hpf (0-4); Urobilinogen,Urine <2.0 mg/dL (<2.0); WBC,Urine 13 /hpf (0-5)
[2021-04-30 15:50] LABS: Creatinine,Urine Random 32.2 mg/dL; Protein/Creatinine Ratio,Urine 0.497
[2021-04-30 21:41] LABS: Basophils # (A) 0.04 X 10*3/uL (0.00-0.10); Basophils % (A) 0.4 %; HCT 46.2 % (37.2-46.3); HGB 14.3 g/dL (12.0-15.0); Lymphocytes # (A) 1.22 X 10*3/uL (0.90-5.00); Lymphocytes % (A) 12.3 %; MCH 28.7 pg (27.0-32.0); MCV 92.6 fL (80.0-97.0); Monocytes # (A) 0.56 X 10*3/uL (0.20-1.00); Monocytes % (A) 5.6 %; Neutrophils # (A) 7.94 X 10*3/uL (1.80-7.70); Neutrophils % (A) 80.1 %; Platelet Count 209 X 10*3/uL (140-440); RBC 4.99 X 10*6/uL (4.10-5.20); RDW 13.8 % (11.5-14.5); WBC 9.92 X 10*3/uL (4.50-10.00)
[2021-04-30 22:35] LABS: Ferritin 239.7 ng/mL (10.0-291.0)
[2021-04-30 22:42] LABS: % Iron Saturation 19.54 (12.00-45.00); African American GFR (CKD) 57.3 (60.0-200.0); Albumin 4.4 g/dL (3.80-4.90); BUN/Creat Ratio 11.82 Ratio (12.00-20.00); Calcium 9.4 mg/dL (8.7-10.3); Magnesium 1.8 mg/dL (1.5-2.4); Non-African American GFR(CKD) 49.4 (60.0-200.0); Potassium 4.8 mmol/L (3.5-5.5); Uric Acid 9.2 mg/dL (2.9-7.7)
== END | disposition home or self-care (01) ==
LOC: LABWHC1 15:10
PROVIDERS: ATTEND Nurse Practitioner Family
DX: N25.81 Secondary hyperparathyroidism of renal origin (principal); E79.0 Hyperuricemia without signs of inflammatory arthritis and tophaceous disease; N18.30 Chronic kidney disease, stage 3 unspecified; D64.9 Anemia, unspecified; N39.0 Urinary tract infection, site not specified; R80.9 Proteinuria, unspecified
CPT/HCPCS: 36415; 80048; 81001; 82040; 82306; 82570; 82728; 83540; 83550; 83735; 83970; 84100; 84156; 84550; 85025

== ENCOUNTER → 2021-10-30 | Outpatient (CLI) | payer MEDICARE ==
[2021-10-30 17:11] LABS: Appearance,Urine Clear (Clear); Bacteria,Urine Moderate /hpf; Bilirubin,Urine Negative (Negative); Blood,Urine Negative (Negative); Color,Urine Light Yellow; Glucose,Urine (UA) Negative (Negative); Ketones,Urine Negative (Negative); Leukocyte Esterase,Urine Moderate (Negative); Nitrite,Urine Negative (Negative); Protein,Urine Negative (Negative); RBC,Urine <1 /hpf (0-5); Specific Gravity,Urine 1.003 (1.001-1.035); Squamous Epithelial Cell,Urine 2 /hpf (0-4); Urobilinogen,Urine <2.0 mg/dL (<2.0); WBC,Urine 9 /hpf (0-5)
[2021-10-30 17:50] LABS: Creatinine,Urine Random 24.4 mg/dL; Protein/Creatinine Ratio,Urine 0.615
[2021-10-31 00:06] LABS: Basophils # (A) 0.04 X 10*3/uL (0.00-0.10); Basophils % (A) 0.4 %; Eosinophils # (A) 0.13 X 10*3/uL (0.04-0.35); Eosinophils % (A) 1.4 %; HCT 46.2 % (37.2-46.3); HGB 15.1 g/dL (12.0-15.0); Lymphocytes # (A) 1.38 X 10*3/uL (0.90-5.00); MCH 30.1 pg (27.0-32.0); MCHC 32.7 g/dL (32.0-37.0); Mean Platelet Volume 11.6 fL (9.5-12.2); Monocytes # (A) 0.45 X 10*3/uL (0.20-1.00); Monocytes % (A) 4.9 %; Neutrophils # (A) 7.17 X 10*3/uL (1.80-7.70); Neutrophils % (A) 77.8 %; Platelet Count 219 X 10*3/uL (140-440); RBC 5.02 X 10*6/uL (4.10-5.20); RDW 13.7 % (11.5-14.5); WBC 9.22 X 10*3/uL (4.50-10.00)
[2021-10-31 01:31] LABS: % Iron Saturation 22.21 (12.00-45.00); African American GFR (CKD) 71.3 (60.0-200.0); Albumin 4.4 g/dL (3.8-4.9); Anion Gap 13.4 mmol/L (10.00-18.00); BUN/Creat Ratio 11.22 Ratio (12.00-20.00); Blood Urea Nitrogen 10.3 mg/dL (9.0-27.0); Calcium 9.6 mg/dL (8.7-10.3); Carbon Dioxide 28.3 mmol/L (20.0-27.5); Magnesium 1.7 mg/dL (1.5-2.4); Non-African American GFR(CKD) 61.5 (60.0-200.0); Phosphorus 3.5 mg/dL (2.4-5.1); Potassium 3.8 mmol/L (3.5-5.5)
== END | disposition home or self-care (01) ==
LOC: LABWHC1 14:53
PROVIDERS: ATTEND Nurse Practitioner Family
DX: E79.0 Hyperuricemia without signs of inflammatory arthritis and tophaceous disease (principal); D64.9 Anemia, unspecified; N39.0 Urinary tract infection, site not specified; R80.9 Proteinuria, unspecified
CPT/HCPCS: 36415; 80048; 81001; 82040; 82570; 82728; 83540; 83550; 83735; 84100; 84156; 84550; 85025

== ENCOUNTER → 2022-05-01 | Outpatient (CLI) | payer MEDICARE ==
[2022-05-01 12:45] LABS: Creatinine,Urine Random 32.1 mg/dL; Protein/Creatinine Ratio,Urine 0.405
[2022-05-01 18:14] LABS: Basophils # (A) 0.04 X 10*3/uL (0.00-0.10); Basophils % (A) 0.4 %; Eosinophils % (A) 1.1 %; HCT 49.4 % (37.2-46.3); Immature Grans, Automated 0.6 %; Lymphocytes % (A) 13.3 %; MCH 27.7 pg (27.0-32.0); MCHC 30.4 g/dL (32.0-37.0); MCV 91.1 fL (80.0-97.0); Mean Platelet Volume 10.7 fL (9.5-12.2); Monocytes # (A) 0.43 X 10*3/uL (0.20-1.00); Monocytes % (A) 4.8 %; NRBC Per 100 WBC 0 /100 WBCS (0.0-0.0); Neutrophils # (A) 7.18 X 10*3/uL (1.80-7.70); Neutrophils % (A) 79.8 %; Platelet Count 220 X 10*3/uL (140-440); RBC 5.42 X 10*6/uL (4.10-5.20); RDW 13.5 % (11.5-14.5)
[2022-05-01 20:38] LABS: Appearance,Urine Cloudy (Clear); Bilirubin,Urine Negative (Negative); Blood,Urine Negative (Negative); Color,Urine Yellow (Yellow); Ketones,Urine Negative (Negative); Nitrite,Urine Negative (Negative); Specific Gravity,Urine 1.005 (1.001-1.030); Urobilinogen,Urine 0.2 (0.2,1.0)
[2022-05-01 20:45] LABS: Bacteria,Urine 3+ /HPF (None Seen)
[2022-05-01 21:36] LABS: Albumin 4.5 g/dL (3.8-4.9)
[2022-05-01 22:50] LABS: Magnesium 1.8 mg/dL (1.5-2.4); Phosphorus 3.1 mg/dL (2.4-5.1); Uric Acid 9.3 mg/dL (2.9-7.7)
[2022-05-01 23:56] LABS: % Iron Saturation 19.65 (12.00-45.00); African American GFR (CKD) 60.2 (60.0-200.0); Anion Gap 21.3 mmol/L (10.00-18.00); BUN/Creat Ratio 10.67 Ratio (12.00-20.00); Blood Urea Nitrogen 11.2 mg/dL (9.0-27.0); Calcium 9.9 mg/dL (8.7-10.3); Carbon Dioxide 20.8 mmol/L (20.0-27.5); Non-African American GFR(CKD) 51.9 (60.0-200.0); Potassium 4.6 mmol/L (3.5-5.5)
== END | disposition home or self-care (01) ==
LOC: LABWHC1 11:18
PROVIDERS: ATTEND Internal Medicine Nephrology
DX: E55.9 Vitamin D deficiency, unspecified (principal); D64.9 Anemia, unspecified; M10.9 Gout, unspecified; N39.0 Urinary tract infection, site not specified; N25.81 Secondary hyperparathyroidism of renal origin; N18.30 Chronic kidney disease, stage 3 unspecified
CPT/HCPCS: 36415; 80048; 81001; 82040; 82306; 82570; 82728; 83540; 83550; 83735; 83970; 84100; 84156; 84550; 85025

== ENCOUNTER → 2022-05-20 | Outpatient (CLI) | payer MEDICARE ==
--- NOTE | 2022-05-21 07:09 | US ---
EXAMINATION TYPE: US kidneys/renal and bladder DATE OF EXAM: 05/20/2022 COMPARISON: 09/23/2016 CLINICAL HISTORY: N18.31 CHRONIC KIDNEY DISEASE, STAGE 3A. CKD EXAM MEASUREMENTS: Right Kidney: 8.6 x 4.3 x 4.9 cm Left Kidney: 8.7 x 3.9 x 5.6 cm Right Kidney: Cyst 1.5 x 1.8 x 1.5cm superior pole Left Kidney: No hydronephrosis or masses seen Bladder: not fully distended There is no evidence for hydronephrosis at this point in time. No nephrolithiasis is seen. No solid masses are identified. The urinary bladder is anechoic. Bilateral ureteral jets are seen. IMPRESSION: Simple cyst upper pole right kidney.
== END | disposition home or self-care (01) ==
LOC: RADUSWWP 16:03
PROVIDERS: ATTEND Internal Medicine Nephrology
DX: N18.31 Chronic kidney disease, stage 3a (principal); N28.1 Cyst of kidney, acquired
CPT/HCPCS: 76770

== ENCOUNTER → 2022-10-29 | Outpatient (CLI) | payer MEDICARE ==
[2022-10-29 14:36] LABS: Creatinine,Urine Random 24.8 mg/dL; Protein/Creatinine Ratio,Urine 0.605
[2022-10-29 19:03] LABS: Basophils # (A) 0.05 X 10*3/uL (0.00-0.10); Basophils % (A) 0.5 %; Eosinophils # (A) 0.12 X 10*3/uL (0.04-0.35); Eosinophils % (A) 1.3 %; HCT 47.4 % (37.2-46.3); HGB 14.9 g/dL (12.0-15.0); Immature Grans, Automated 0.6 %; Lymphocytes # (A) 1.21 X 10*3/uL (0.90-5.00); Lymphocytes % (A) 12.8 %; MCH 28.4 pg (27.0-32.0); MCHC 31.4 g/dL (32.0-37.0); MCV 90.5 fL (80.0-97.0); Mean Platelet Volume 10.5 fL (9.5-12.2); Monocytes # (A) 0.48 X 10*3/uL (0.20-1.00); Monocytes % (A) 5.1 %; NRBC Per 100 WBC 0 /100 WBCS (0.0-0.0); Neutrophils # (A) 7.53 X 10*3/uL (1.80-7.70); Neutrophils % (A) 79.7 %; Platelet Count 208 X 10*3/uL (140-440); RBC 5.24 X 10*6/uL (4.10-5.20); RDW 13.4 % (11.5-14.5); WBC 9.45 X 10*3/uL (4.50-10.00)
[2022-10-29 19:26] LABS: Albumin 4.4 g/dL (3.8-4.9)
[2022-10-29 19:30] LABS: % Iron Saturation 20.06 (12.00-45.00); African American GFR (CKD) 60.2 (60.0-200.0); Anion Gap 13.6 mmol/L (10.00-18.00); BUN/Creat Ratio 12.38 Ratio (12.00-20.00); Calcium 9.8 mg/dL (8.7-10.3); Carbon Dioxide 29.1 mmol/L (20.0-27.5); Magnesium 1.7 mg/dL (1.5-2.4); Non-African American GFR(CKD) 51.9 (60.0-200.0); Phosphorus 3.3 mg/dL (2.4-5.1); Potassium 5.1 mmol/L (3.5-5.5); Uric Acid 9.2 mg/dL (2.9-7.7)
[2022-10-29 19:36] LABS: Appearance,Urine Clear (Clear); Bilirubin,Urine Negative (Negative); Blood,Urine Trace (Negative); Color,Urine Yellow (Yellow); Ketones,Urine Negative (Negative); Nitrite,Urine Negative (Negative); PH, Urine 6.5 (5.0-8.0); Specific Gravity,Urine 1.004 (1.001-1.030); Urobilinogen,Urine 0.2 (0.2,1.0)
[2022-10-29 20:52] LABS: Bacteria,Urine 3+ /HPF (None Seen)
== END | disposition home or self-care (01) ==
LOC: LABWHC1 12:39
PROVIDERS: ATTEND Nurse Practitioner Family
DX: N25.81 Secondary hyperparathyroidism of renal origin (principal); N18.31 Chronic kidney disease, stage 3a; M10.9 Gout, unspecified; N39.0 Urinary tract infection, site not specified; D63.1 Anemia in chronic kidney disease; R80.9 Proteinuria, unspecified
CPT/HCPCS: 36415; 80048; 81001; 82040; 82306; 82570; 82728; 83540; 83550; 83735; 83970; 84100; 84156; 84550; 85025

== ENCOUNTER → 2023-04-23 | Outpatient (CLI) | payer MEDICARE ==
[2023-04-23 14:10] LABS: Creatinine,Urine Random 30.1 mg/dL; Protein/Creatinine Ratio,Urine 0.698
[2023-04-23 20:50] LABS: Albumin 4.3 g/dL (3.8-4.9)
[2023-04-23 21:06] LABS: Appearance,Urine Clear (Clear); Bilirubin,Urine Negative (Negative); Blood,Urine Trace (Negative); Color,Urine Yellow (Yellow); Ketones,Urine Negative (Negative); Nitrite,Urine Negative (Negative); PH, Urine 6.5 (5.0-8.0); Specific Gravity,Urine 1.005 (1.001-1.030); Urobilinogen,Urine 0.2 (0.2,1.0)
[2023-04-23 21:31] LABS: Basophils # (A) 0.04 X 10*3/uL (0.00-0.10); Basophils % (A) 0.4 %; Eosinophils # (A) 0.17 X 10*3/uL (0.04-0.35); Eosinophils % (A) 1.8 %; HCT 46.2 % (37.2-46.3); HGB 14.3 g/dL (12.0-15.0); Immature Grans, Automated 0.7 %; Lymphocytes # (A) 1.12 X 10*3/uL (0.90-5.00); Lymphocytes % (A) 11.9 %; MCH 28.5 pg (27.0-32.0); Mean Platelet Volume 10.4 fL (9.5-12.2); Monocytes # (A) 0.44 X 10*3/uL (0.20-1.00); Monocytes % (A) 4.7 %; NRBC Per 100 WBC 0 /100 WBCS (0.0-0.0); Neutrophils # (A) 7.61 X 10*3/uL (1.80-7.70); Neutrophils % (A) 80.5 %; Platelet Count 200 X 10*3/uL (140-440); RBC 5.02 X 10*6/uL (4.10-5.20); RDW 13.9 % (11.5-14.5); WBC 9.45 X 10*3/uL (4.50-10.00)
[2023-04-23 22:03] LABS: Bacteria,Urine 2+ /HPF (None Seen)
[2023-04-23 22:14] LABS: % Iron Saturation 18.08 (12.00-45.00); African American GFR (CKD) 61.2 (60.0-200.0); Anion Gap 15.4 mmol/L (10.00-18.00); BUN/Creat Ratio 12.82 Ratio (12.00-20.00); Blood Urea Nitrogen 13.2 mg/dL (9.0-27.0); Calcium 9.6 mg/dL (8.7-10.3); Carbon Dioxide 27.1 mmol/L (20.0-27.5); Magnesium 1.7 mg/dL (1.5-2.4); Non-African American GFR(CKD) 52.8 (60.0-200.0); Phosphorus 3.2 mg/dL (2.4-5.1); Potassium 4.7 mmol/L (3.5-5.5); Uric Acid 8.5 mg/dL (2.9-7.7)
== END | disposition home or self-care (01) ==
LOC: LABWHC1 12:58
PROVIDERS: ATTEND Nurse Practitioner Family
DX: N25.81 Secondary hyperparathyroidism of renal origin (principal); N18.31 Chronic kidney disease, stage 3a; D63.1 Anemia in chronic kidney disease; E55.9 Vitamin D deficiency, unspecified; M10.9 Gout, unspecified; N39.0 Urinary tract infection, site not specified; R80.9 Proteinuria, unspecified
CPT/HCPCS: 36415; 80048; 81001; 82040; 82306; 82570; 82728; 83540; 83550; 83735; 83970; 84100; 84156; 84550; 85025

== ENCOUNTER → 2023-11-05 | Outpatient (CLI) | payer MEDICARE ==
[2023-11-06 02:49] LABS: % Iron Saturation 15.99 (12.00-45.00); Blood Urea Nitrogen 9.7 mg/dL (9.0-27.0); Chloride 99 mmol/L (96-109); Glucose 92 mg/dL (70-110); Iron 47 UG/DL (50-170); Magnesium 1.7 mg/dL (1.5-2.4); Phosphorus 3.2 mg/dL (2.4-5.1); Potassium 5.1 mmol/L (3.5-5.5); Sodium 141 mmol/L (135-145); Total Iron Binding Capacity 294 UG/DL (228-460); Uric Acid 8.9 mg/dL (2.9-7.7)
[2023-11-06 02:50] LABS: Albumin 4.4 g/dL (3.8-4.9); Basophils # (A) 0.03 X 10*3/uL (0.00-0.10); Basophils % (A) 0.3 %; Calcium 10.2 mg/dL (8.7-10.3); Carbon Dioxide 29.2 mmol/L (21.6-31.8); Eosinophils # (A) 0.12 X 10*3/uL (0.04-0.35); Eosinophils % (A) 1.3 %; HCT 47.6 % (37.2-46.3); HGB 14.5 g/dL (12.0-15.0); Lymphocytes # (A) 1.16 X 10*3/uL (0.90-5.00); Lymphocytes % (A) 12.4 %; MCH 28.8 pg (27.0-32.0); MCHC 30.5 g/dL (32.0-37.0); MCV 94.6 FL (80.0-97.0); Mean Platelet Volume 11.8 FL (9.5-12.2); Monocytes % (A) 5.3 %; NRBC Per 100 WBC 0 X 10*3/uL (0.00-0.01); Neutrophils # (A) 7.55 X 10*3/uL (1.80-7.70); Neutrophils % (A) 80.4 %; Platelet Count 209 X 10*3/uL (140-440); RBC 5.03 X 10*6/uL (4.10-5.20); RDW 14.2 % (11.5-14.5); WBC 9.39 X 10*3/uL (4.50-10.00)
== END | disposition home or self-care (01) ==
LOC: LABWHC1 12:37
PROVIDERS: ATTEND Internal Medicine Nephrology
DX: N39.0 Urinary tract infection, site not specified (principal); N25.81 Secondary hyperparathyroidism of renal origin; N18.31 Chronic kidney disease, stage 3a; M10.9 Gout, unspecified; D63.1 Anemia in chronic kidney disease; R80.9 Proteinuria, unspecified
CPT/HCPCS: 36415; 80048; 82040; 82306; 82728; 83540; 83550; 83735; 83970; 84100; 84550; 85025

== ENCOUNTER → 2024-05-12 | Outpatient (CLI) | payer MEDICARE ==
[2024-05-12 14:10] LABS: Creatinine,Urine Random 34.1 mg/dL; Protein/Creatinine Ratio,Urine 0.411
[2024-05-12 18:14] LABS: Basophils # (A) 0.04 X 10*3/uL (0.00-0.10); Basophils % (A) 0.5 %; Eosinophils # (A) 0.14 X 10*3/uL (0.04-0.35); Eosinophils % (A) 1.6 %; HCT 43.3 % (37.2-46.3); HGB 13.2 g/dL (12.0-15.0); Lymphocytes # (A) 1.05 X 10*3/uL (0.90-5.00); Lymphocytes % (A) 11.9 %; MCH 28.6 pg (27.0-32.0); MCHC 30.5 g/dL (32.0-37.0); MCV 93.9 FL (80.0-97.0); Mean Platelet Volume 11.2 FL (9.5-12.2); Monocytes # (A) 0.46 X 10*3/uL (0.20-1.00); Monocytes % (A) 5.2 %; NRBC Per 100 WBC 0 X 10*3/uL (0.00-0.01); Neutrophils # (A) 7.08 X 10*3/uL (1.80-7.70); Neutrophils % (A) 80.1 %; Platelet Count 195 X 10*3/uL (140-440); RBC 4.61 X 10*6/uL (4.10-5.20); RDW 13.7 % (11.5-14.5); WBC 8.83 X 10*3/uL (4.50-10.00)
[2024-05-12 18:21] LABS: Appearance,Urine Clear (Clear); Bilirubin,Urine Negative (Negative); Blood,Urine Negative (Negative); Color,Urine Yellow (Yellow); Ketones,Urine Negative (Negative); Nitrite,Urine Negative (Negative); Specific Gravity,Urine 1.004 (1.001-1.030); Urobilinogen,Urine 0.2 E.U./DL
[2024-05-12 18:32] LABS: Bacteria,Urine 3+ (None Seen)
[2024-05-12 18:46] LABS: % Iron Saturation 24.73 (12.00-45.00); Albumin 4.3 g/dL (3.8-4.9); Calcium 9.4 mg/dL (8.7-10.3); Carbon Dioxide 30.4 mmol/L (21.6-31.8); Chloride 93 mmol/L (96-109); Glucose 98 mg/dL (70-110); Iron 69 UG/DL (50-170); Magnesium 1.7 mg/dL (1.5-2.4); Phosphorus 3.3 mg/dL (2.4-5.1); Potassium 4.9 mmol/L (3.5-5.5); Sodium 134 mmol/L (135-145); Total Iron Binding Capacity 279 UG/DL (228-460); Uric Acid 9.7 mg/dL (2.9-7.7)
== END | disposition home or self-care (01) ==
LOC: LABWHC1 13:19
PROVIDERS: ATTEND Internal Medicine Nephrology
DX: N25.81 Secondary hyperparathyroidism of renal origin (principal); N18.31 Chronic kidney disease, stage 3a
CPT/HCPCS: 36415; 80048; 81001; 82040; 82306; 82570; 82728; 83540; 83550; 83735; 83970; 84100; 84156; 84550; 85025

== ENCOUNTER 2024-10-13 19:02 | Emergency (ER) | payer MEDICARE ==
--- NOTE | 2024-10-13 19:46 | ED ---
General Adult HPI - General Chief complaint: Recheck/Abnormal Lab/Rx Stated complaint: foot infection Time Seen by Provider: 10/13/24 19:05 Source: patient, EMS, RN notes reviewed Mode of arrival: EMS Limitations: no limitations - History of Present Illness Initial comments: 79-year-old female presents to the emergency department for evaluation of left second toe discoloration. Patient states that she noticed this about 1 week ago. She notes that the color has seemed to change and is more blue now. She denies any injury to the toe. Denies any change in sensation. Denies recent fever, chills, nausea, vomiting. - Related Data Home Medications Medication Instructions Recorded Confirmed Thyroid,Pork [Byars Thyroid] 30 mg PO DAILY 04/09/15 10/13/24 Ascorbic Acid [Vitamin C] 500 mg PO DAILY 10/13/24 10/13/24 Beta-Glucan 10mg 10 mg PO DAILY 10/13/24 10/13/24 Cholecalciferol [Vitamin D3 (25 25 mcg PO MOTUWETHFRSA 10/13/24 10/13/24 Mcg = 1000 Iu)] Ferrous Sulfate [Feosol] 325 mg PO DIRECTED 10/13/24 10/13/24 Furosemide [Lasix] 20 mg PO DAILY 10/13/24 10/13/24 Grape Seed Extract 250mg 250 mg PO DAILY 10/13/24 10/13/24 Iodine Supplement 15mcg 15 mcg PO DIRECTED 10/13/24 10/13/24 Lutein 57mg 114 mg PO DAILY 10/13/24 10/13/24 Magnesium (Unknown Strength) 1 tab PO TID 10/13/24 10/13/24 Tart Unger 43mg 43 mg PO DAILY 10/13/24 10/13/24 Vitamin B Complex 1 cap PO DAILY 10/13/24 10/13/24 Warfarin [Coumadin] 7.5 mg PO MOWEFR 10/13/24 10/13/24 Warfarin [Coumadin] 10 mg PO SUTUTHSA 10/13/24 10/13/24 Zinc Citrate [Zinc] 22 mg PO DAILY 10/13/24 10/13/24 calcitrioL [Rocaltrol] 0.25 mcg PO MO 10/13/24 10/13/24 carvediloL [Coreg] 6.25 mg PO BID-W/MEALS 10/13/24 10/13/24 hydrALAZINE HCL [Apresoline] 50 mg PO BID 10/13/24 10/13/24 Allergies Allergy/AdvReac Type Severity Reaction Status Date / Time lisinopril Allergy Severe Abdominal Verified 10/13/24 19:36 Pain promethazine Allergy Severe Anaphylaxis Verified 10/13/24 19:36 Sulfa (Sulfonamide Allergy Severe SEVERE Verified 10/13/24 19:36 Antibiotics) ASTHMA ATTACK azithromycin Allergy Diarrhea Verified 10/13/24 19:36 levofloxacin Allergy Unknown Verified 10/13/24 19:36 amlodipine besylate AdvReac Severe Severe Verified 10/13/24 19:36 [From Norvasc] drop in blood pressure adhesive AdvReac Unknown BLISTERS Verified 10/13/24 19:36 diazepam [From Valium] AdvReac "Stabbing Verified 10/13/24 19:36 pain in brain" meperidine HCl [From Demerol] AdvReac Nausea & Verified 10/13/24 19:36 Vomiting Review of Systems ROS Statement: Those systems with pertinent positive or pertinent negative responses have been documented in the HPI. ROS Other: All systems not noted in ROS Statement are negative. Past Medical History Past Medical History: Atrial Fibrillation, Asthma, Cancer, COPD, Diabetes Mellitus, Hyperlipidemia, Hypertension, Osteoarthritis (OA), Renal Disease, Thyroid Disorder Additional Past Medical History / Comment(s): Morbid obesity, chronic bronchial asthma, chronic atrial fibrillation, diabetes mellitus, hypertension, hyperlipidemia, hypothyroidism, lymphedema of the lower extremities, varicose veins involving lower extremities, recent sepsis secondary to enterococcal urinary tract infection, history of nephrolithiasis status post insertion of ureteral stents bilaterally, history of right pyelonephritis, history of acute kidney injury from which the patient recovers, the patient has difficulty with mobility and she moves around out of his scooter and she can only walk short distances, skin cancer that has been removed, chronic hypoxic respiratory failure maintained on oxygen. History of Any Multi-Drug Resistant Organisms: None Reported Past Surgical History: Appendectomy, Breast Surgery, Section, Cholecystectomy, Hysterectomy, Tonsillectomy Additional Past Surgical History / Comment(s): Left breast biopsy, ureteral stents bilaterally the one done on the left was in March 2016 the one on the right was from March 2018, left ureteral calculus extraction through a urethroscopy, colonoscopy, skin cancer resection from the forehead, , cholecystectomy, appendectomy, hysterectomy, tonsillectomy Past Anesthesia/Blood Transfusion Reactions: No Reported Reaction Additional Past Anesthesia/Blood Transfusion Reaction / Comment(s): WOKE UP VOMITING DURING Past Psychological History: Anxiety Smoking Status: Never smoker Past Alcohol Use History: None Reported Past Drug Use History: None Reported - Past Family History Brother(s) Family Medical History: AFIB, Neurologic Disorder Additional Family Medical History / Comment(s): No sisters one son healthy no daughters Father Family Medical History: Diabetes Mellitus, Deep Vein Thrombosis (DVT), Hypertension Additional Family Medical History / Comment(s): blind/neuropathy secondary to DM. Father is . Mother Family Medical History: Dementia Additional Family Medical History / Comment(s): Mother at age 88yrs. General Exam Limitations: no limitations General appearance: alert, in no apparent distress Head exam: Present: atraumatic, normocephalic, normal inspection Eye exam: Present: normal appearance, PERRL, EOMI. Absent: scleral icterus, conjunctival injection, periorbital swelling ENT exam: Present: normal exam, mucous membranes moist Respiratory exam: Present: normal lung sounds bilaterally. Absent: respiratory distress, wheezes, rales, rhonchi, stridor Cardiovascular Exam: Present: regular rate, normal rhythm, normal heart sounds. Absent: systolic murmur, diastolic murmur, rubs, gallop, clicks Extremities exam: Present: full ROM, normal capillary refill, other (Ecchymosis to the left second toe). Absent: tenderness, pedal edema, joint swelling, calf tenderness Neurological exam: Present: alert, oriented X3 Psychiatric exam: Present: normal affect, normal mood Skin exam: Present: warm, dry, intact. Absent: normal color Course Vital Signs 10/13/24 10/13/24 10/13/24 19:05 21:09 21:56 Temperature 98.2 F 98.6 F Pulse Rate 80 78 71 Respiratory 20 16 18 Rate Blood Pressure 177/80 164/96 159/93 O2 Sat by Pulse 94 L 96 96 Oximetry Medical Decision Making - Medical Decision Making Was pt. sent in by a medical professional or institution (, PA, [employer], urgent care, hospital, or snf...) When possible be specific @ -No Did you speak to anyone other than the patient for history (EMS, parent, family, police, friend...)? What history was obtained from this source @ -No Did you review nursing and triage notes (agree or disagree)? Why? @ -I reviewed and agree with nursing and triage notes Were old charts reviewed (outside hosp., previous admission, EMS record, old EKG, old radiological studies, urgent care reports/EKG's, snf records)? Report findings @ -No old charts were reviewed Differential Diagnosis (chest pain, altered mental status, abdominal pain women, abdominal pain men, vaginal bleeding, weakness, fever, dyspnea, syncope, headache, dizziness, GI bleed, back pain, seizure, CVA, palpatations, mental health, musculoskeletal)? @ -Differential Musculoskeletal Muscular strain, contusion, ligament sprain, fracture, arthritis, septic arthritis, bursitis, cellulitis, muscle spasm, nerve compression, DVT, arterial occlusion, herpes zoster, electrolyte abnormality, tumor.... This is not meant to be in all inclusive list EKG interpreted by me (3pts min.). @ -None X-rays interpreted by me (1pt min.). @ -X-ray of the left toes shows soft tissue swelling with no subcutaneous emphysema CT interpreted by me (1pt min.). @ -None done U/S interpreted by me (1pt. min.). @ -None done What testing was considered but not performed or refused? (CT, X-rays, U/S, labs)? Why? @ -None What meds were considered but not given or refused? Why? @ -None Did you discuss the management of the patient with other professionals (professionals i.e. , PA, [employer], lab, RT, psych nurse, social services specialist, toy department manager, teacher, chief creative officer, director case management)? Give summary @ -No Was smoking cessation discussed for >3mins.? @ -No Was critical care preformed (if so, how long)? @ -No Were there social determinants of health that impacted care today? How? (Homelessness, low income, unemployed, alcoholism, drug addiction, transportation, low edu. Level, literacy, decrease access to med. care, detention, rehab)? @ -No Was there de-escalation of care discussed even if they declined (Discuss DNR or withdrawal of care, Hospice)? DNR status @ -No What co-morbidities impacted this encounter? (DM, HTN, Smoking, COPD, CAD, Cancer, CVA, ARF, Chemo, Hep., AIDS, mental health diagnosis, sleep apnea, morbid obesity)? @ -None Was patient admitted / discharged? Hospital course, mention meds given and route, prescriptions, significant lab abnormalities, going to OR and other pertinent info. @ -Discharged. Patient presented to the emergency department for evaluation of left 2nd toe discoloration. On examination, patient has ecchymosis appearance to 2nd digit of left foot. No open wounds. XR obtained revealing soft tissue swelling with no acute process. Based on clinical evaluation and examination, does not fit the picture for cellulitis, osteomyelitis, or gangrene. Patient neurovascular status intact. Patient advised on this, strict return precautions discussed. Advised follow up to PCP. Patient understanding and agreeable with plan. Undiagnosed new problem with uncertain prognosis? @ -No Drug Therapy requiring intensive monitoring for toxicity (Heparin, Nitro, Insulin, Cardizem)? @ -No Were any procedures done? @ -No Diagnosis/symptom? @ -Toe contusion Acute, or Chronic, or Acute on Chronic? @ -Acute Uncomplicated (without systemic symptoms) or Complicated (systemic symptoms)? @ -Uncomplicated Side effects of treatment? @ -No Exacerbation, Progression, or Severe Exacerbation? @ -No Poses a threat to life or bodily function? How? (Chest pain, [place], NH, pneumonia, PE, COPD, DKA, ARF, appy, cholecystitis, CVA, Diverticulitis, Homicidal, Suicidal, threat to staff... and all critical care pts) @ -No Disposition Clinical Impression: Foot contusion Disposition: HOME SELF-CARE Condition: Stable Instructions (If sedation given, give patient instructions): Foot Contusion (ED) Additional Instructions: Please follow up with your primary care provider. Return to the emergency department for new or worsening symptoms. Is patient prescribed a controlled substance at d/c from ED?: No Referrals: Too Espinosa DO [Primary Care Provider] - 1-2 days
--- NOTE | 2024-10-13 20:30 | XR ---
EXAMINATION TYPE: XR toes LT DATE OF EXAM: 10/13/2024 8:01 PM COMPARISON: None. CLINICAL INDICATION: Female, 79 years old with history of bruising,Patient presents to by EMS from home due to left toe injury, possible infection. Per EMS, patient called her PCP and they wanted her seen today for possible gangrene TECHNIQUE: 3 view(s) obtained. FINDINGS: There is diffuse soft tissue swelling over the digits. This may be more focal at the proximal second digit. No cortical erosions are identified. No acute fractures of the second digit are evident. No simpson bcutaneous emphysema is identified. Note is made of some distal foot soft tissue swelling. At the edge of the field of view there may be fracture through the base of the proximal phalanx fifth digit. Correlate for pain at this level. This area is incompletely evaluated these images. IMPRESSION: 1. Soft tissue swelling at the second digit. No suspicious cortical erosion contains emphysema ident ified. 3 phase bone scan could be performed for sufficient clinical suspicion of osteomyelitis or inf ection evaluation. 2. Possible occult fracture of the base of the proximal phalanx fifth digit. Correlate for pain. [facility], , 10/13/2024 8:28 PM
[2024-10-13 21:57] VITALS: BP 159/93; PULSE 71; RESP 18; TEMP 98.6
== END 2024-10-13 22:36 | disposition home or self-care (01) ==
LOC: EC 19:02
DX: S90.122A Contusion of left lesser toe(s) without damage to nail, initial encounter (principal); Z88.1 Allergy status to other antibiotic agents; Z88.2 Allergy status to sulfonamides; Z88.5 Allergy status to narcotic agent; Z88.8 Allergy status to other drugs, medicaments and biological substances; X58.XXXA Exposure to other specified factors, initial encounter
CPT/HCPCS: 99284

== ENCOUNTER → 2024-11-09 | Outpatient (CLI) | payer MEDICARE ==
[2024-11-09 18:12] LABS: Basophils # (A) 0.03 X 10*3/uL (0.00-0.10); Basophils % (A) 0.3 %; Eosinophils # (A) 0.13 X 10*3/uL (0.04-0.35); Eosinophils % (A) 1.4 %; HCT 46.4 % (37.2-46.3); HGB 14.4 g/dL (12.0-15.0); Lymphocytes # (A) 1.04 X 10*3/uL (0.90-5.00); Lymphocytes % (A) 11.5 %; MCH 28.4 pg (27.0-32.0); MCV 91.5 FL (80.0-97.0); Monocytes # (A) 0.48 X 10*3/uL (0.20-1.00); Monocytes % (A) 5.3 %; NRBC Per 100 WBC 0 X 10*3/uL (0.00-0.01); Neutrophils # (A) 7.29 X 10*3/uL (1.80-7.70); Neutrophils % (A) 81.1 %; Platelet Count 197 X 10*3/uL (140-440); RBC 5.07 X 10*6/uL (4.10-5.20); RDW 13.6 % (11.5-14.5); WBC 9.01 X 10*3/uL (4.50-10.00)
[2024-11-09 19:19] LABS: % Iron Saturation 24.43 (12.00-45.00); Albumin 4.3 g/dL (3.8-4.9); BUN/Creat Ratio 12.56 Ratio (12.00-20.00); Blood Urea Nitrogen 11.3 mg/dL (9.0-27.0); Calcium 9.5 mg/dL (8.7-10.3); Carbon Dioxide 26.9 mmol/L (21.6-31.8); Chloride 98 mmol/L (96-109); Glucose 99 mg/dL (70-110); Iron 64 UG/DL (50-170); Magnesium 1.7 mg/dL (1.5-2.4); Phosphorus 3.1 mg/dL (2.4-5.1); Sodium 139 mmol/L (135-145); Total Iron Binding Capacity 262 UG/DL (228-460); Uric Acid 9.6 mg/dL (2.9-7.7)
[2024-11-09 19:20] LABS: Microalbumin Creatinine Ratio <25 mg/g Cr (0-30); Urine Creatinine 48.2 mg/dL (28.0-217.0)
[2024-11-09 20:03] LABS: Appearance,Urine Cloudy (Clear); Bilirubin,Urine Negative (Negative); Blood,Urine Trace (Negative); Color,Urine Yellow (Yellow); Ketones,Urine Negative (Negative); Nitrite,Urine Negative (Negative); PH, Urine 6.5; Specific Gravity,Urine 1.007 (1.001-1.030); Urobilinogen,Urine 0.2 E.U./DL
[2024-11-09 20:11] LABS: Bacteria,Urine 3+ (None Seen)
== END | disposition home or self-care (01) ==
LOC: LABWHC1 12:50
PROVIDERS: ATTEND Internal Medicine Nephrology
DX: N18.31 Chronic kidney disease, stage 3a (principal); D63.1 Anemia in chronic kidney disease; E55.9 Vitamin D deficiency, unspecified; N25.81 Secondary hyperparathyroidism of renal origin; M10.9 Gout, unspecified; N39.0 Urinary tract infection, site not specified; R80.9 Proteinuria, unspecified
CPT/HCPCS: 36415; 80048; 81001; 82040; 82043; 82306; 82570; 83540; 83550; 83735; 83970; 84100; 84550; 85025

== ENCOUNTER → 2025-05-16 | Outpatient (CLI) | payer MEDICARE ==
[2025-05-16 15:02] LABS: Basophils # (A) 0.03 X 10*3/uL (0.00-0.10); Basophils % (A) 0.4 %; Eosinophils # (A) 0.12 X 10*3/uL (0.04-0.35); Eosinophils % (A) 1.5 %; HCT 42.8 % (37.2-46.3); HGB 13.5 g/dL (12.0-15.0); Lymphocytes # (A) 1.24 X 10*3/uL (0.90-5.00); Lymphocytes % (A) 15.9 %; MCH 28.9 pg (27.0-32.0); MCHC 31.5 g/dL (32.0-37.0); MCV 91.6 FL (80.0-97.0); Monocytes # (A) 0.41 X 10*3/uL (0.20-1.00); Monocytes % (A) 5.2 %; NRBC Per 100 WBC 0 X 10*3/uL (0.00-0.01); Neutrophils # (A) 5.97 X 10*3/uL (1.80-7.70); Neutrophils % (A) 76.5 %; Platelet Count 189 X 10*3/uL (140-440); RBC 4.67 X 10*6/uL (4.10-5.20); RDW 13.4 % (11.5-14.5); WBC 7.81 X 10*3/uL (4.50-10.00)
[2025-05-16 15:10] LABS: Appearance,Urine Cloudy (Clear); Bilirubin,Urine Negative (Negative); Blood,Urine Negative (Negative); Color,Urine Yellow (Yellow); Ketones,Urine Negative (Negative); Nitrite,Urine Positive (Negative); Specific Gravity,Urine 1.009 (1.001-1.030); Urobilinogen,Urine 0.2 E.U./DL
[2025-05-16 15:35] LABS: Bacteria,Urine 3+ (None Seen); Mucus,Urine Present
[2025-05-16 15:47] LABS: % Iron Saturation 28.46 (12.00-45.00); Albumin 4.1 g/dL (3.8-4.9); Blood Urea Nitrogen 9.8 mg/dL (9.0-27.0); Calcium 9.3 mg/dL (8.7-10.3); Chloride 97 mmol/L (96-109); Glucose 93 mg/dL (70-110); Iron 70 UG/DL (50-170); Magnesium 1.7 mg/dL (1.5-2.4); Phosphorus 3.3 mg/dL (2.4-5.1); Potassium 4.2 mmol/L (3.5-5.5); Sodium 138 mmol/L (135-145); Total Iron Binding Capacity 246 UG/DL (228-460); Uric Acid 9.7 mg/dL (2.9-7.7)
[2025-05-16 16:59] LABS: Urine Creatinine 84.3 mg/dL (28.0-217.0)
== END | disposition home or self-care (01) ==
LOC: LABWHC1 10:06
PROVIDERS: ATTEND Nurse Practitioner Family
DX: N18.2 Chronic kidney disease, stage 2 (mild) (principal); E55.9 Vitamin D deficiency, unspecified; N25.81 Secondary hyperparathyroidism of renal origin; M10.9 Gout, unspecified; D63.1 Anemia in chronic kidney disease; N39.0 Urinary tract infection, site not specified; R80.9 Proteinuria, unspecified
CPT/HCPCS: 36415; 80048; 81001; 82040; 82043; 82306; 82570; 82728; 83540; 83550; 83735; 83970; 84100; 84550; 85025